=== PATIENT | male | born 1935 | race Caucasian/White ===

== ENCOUNTER 2019-08-24 07:00 | Outpatient (CLI) | payer MEDICARE, SELFPAY ==
[2019-08-24 09:37] LABS: Basophils # 0.1 10^3/uL (0.0-0.1); Basophils % 1.1 %; Eosinophils # 0.1 10^3/uL (0.0-0.8); Eosinophils % 2.9 %; Hematocrit 45.8 % (42.0-52.0); Hemoglobin 15.2 g/dL (11.7-16.6); Lymphocytes # 1.8 10^3/uL (0.8-4.8); Lymphocytes % 39.2 %; Mean Corpuscular HGB Conc 33.2 g/dL (30.0-36.0); Mean Corpuscular Hemoglobin 34.2 pg (28.0-34.0); Mean Corpuscular Volume 103.2 fL (80-94); Mean Platelet Volume 9.7 fL (7.4-10.4); Monocytes # 0.8 10^3/uL (0.2-0.9); Monocytes % 16.5 %; Neutrophils # 1.8 10^3/uL (1.8-7.7); Neutrophils % 40.1 %; Nucleated Red Blood Cells % 0 %; Platelet Count 223 10^3/cmm (130-400); Red Blood Count 4.44 10^6/uL (4.1-5.3); Red Cell Distribution Width 12.9 % (12.1-15.1); White Blood Count 4.5 10^3/uL (4.0-10.0)
[2019-08-24 09:56] LABS: Alanine Aminotransferase 31 U/L (0-41); Albumin Level 4.3 g/dL (3.5-5.2); Alkaline Phosphatase 79 IU/L (40-130); Anion Gap 15.3 (5-19); Aspartate Amino Transferase 40 U/L (0-40); Blood Urea Nitrogen 11 mg/dL (8-23); Carbon Dioxide 29 mmol/L (22-29); Chloride 101 mmol/L (98-107); Globulin 2.4 g/dL (1.3-4.6); Glucose 98 mg/dL (65-115); Lactate Dehydrogenase 231 U/L (135-225); Osmolality Calculated 288 mOsm/kg (285-295); Potassium 4.3 mmol/L (3.5-5.1); Sodium 141 mmol/L (136-145); Total Bilirubin 0.5 mg/dL (0.15-1.2); Total Protein 6.7 g/dL (6.6-8.7)
== END 2019-08-24 07:01 | disposition home or self-care (01) ==
LOC: ONCMED 08-25 15:34
PROVIDERS: Family Provider Internal Medicine; PCP Internal Medicine; Visit Provider Internal Medicine Medical Oncology
DX: C82.35 Follicular lymphoma grade IIIa, lymph nodes of inguinal region and lower limb (principal)
CPT/HCPCS: 80053; 83615; 85025

== ENCOUNTER 2019-12-20 14:44 | Outpatient (CLI) | payer MEDICARE, SELFPAY ==
--- NOTE | 2019-12-24 16:33 | ONC FU_ITS ---
Dr. Sifuentes Patient Follow-Up Note Patient: Howie Hoffman Unit #: [id number]: [id number] Dicatated By: Bert Sifuentes M.D.Date of Visit:Dec 20, 2019 Onc Med Follow-up/Prog Note Chief Complaint: Lymphoma. History of Present Illness: This is an 84 year-old man with grade 3 follicular lymphoma, stage IIIB, high FLIPI score. 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 He developed an intermittent adenopathy, but initial attempted biopsies were nondiagnostic. In October of 2012 he developed occasional swelling of the right leg. An ultrasound of the leg showed no evidence of DVT, but he was noted to have large inguinal adenopathy measuring up to 3.5 cm. On 12/24/2012 excisional right inguinal lymph node biopsy showed grade 3 follicular lymphoma with immunohistochemistry positive for CD20, BCL-2, BCL-6, CD10 and negative for CD23 and ALK. Flow cytometry was negative for CD5. His Ki-67 was 30-50%. Postoperatively he had a complications with healing, requiring further surgical debridement on 01/21/2013. He had a high FLIPI score given his age, stage, and more than 4 station involvement. He was first seen by Dr. Lin on 01/21/2013. Bone marrow biopsy on 01/27/13 showed no involvement with lymphoma. Staging PET/CT on 01/29/13 showed diffuse adenopathy up to 2.5 cm with a maximum SUV of 9.2 involving bilateral axilla, mediastinum, abdomen, and inguinal stations. He had significant retroperitoneal adenopathy raising the aorta anteriorly. Hepatitis B serology was negative. MUGA scan on 01/28/2013 showed EF 62%. Pre-treatment LDH was 204 U/L. Definitive chemotherapy with 6 cycles of R- CHOP regimen was given 02/02/13- 05/18/13. His treatment was complicated with grade 4 neutropenia without fevers. He had a poor wound healing with the right groin cellulitis. CT of the chest, abdomen, and pelvis after 3 cycles of R-CHOP showed positive response to therapy with decrease in adenopathy in all stations. He had unchanged right lower lobe small subpleural nodule. His restaging PET/CT on 06/04/2013 after 6 cycles showed a complete response. Maintenance rituximab as per PRIMA study began on 07/15/13. CT chest, abdomen, and pelvis on 06/30/2014 was without significant adenopathy. He received cycle 12 of rituximab therapy on 03/28/2015, completing 2 years of maintenance treatment. He was then followed on observation/expectant management. His medical history, in addition to lymphoma, includes treatment for bladder cancer in 2012 and tubular adenoma of the colon removed endoscopically in 2005. His only other medical illness is GERD. He has a history of smoking one half pack of cigarettes daily. He quit smoking in 2002. He had a Pneumovax in 2013 and Prevnar in 2014. INTERIM HISTORY: I had seen him for a scheduled visit on 07/09/2018. He had recently undergone dental surgery, and he appeared to have palpable digastric lymph nodes bilaterally. He had further evaluation with PET/CT on 07/18/2018. It showed a minimally hypermetabolic soft tissue lesion in the superficial right parotid gland measuring 2.5 x 1.3 cm, SUV 2.4. 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 There were no other areas of abnormal uptake. He continued on observation/expectant management for the lymphoma. He is seen for a follow-up visit. He has been feeling pretty good generally, though he says his energy is not what it used to be. He is still doing normal activity. ECOG score is 0. He has good appetite. He has not had fever. He occasionally has sweating at night. He does not complain of shortness of breath, cough, or chest pain. He currently has no GI or complaints. He has had recurrence of carpal tunnel symptoms on the right with some associated pain and with numbness in his right hand. He has no other joint or bone pain and no other focal neurologic symptoms. Medications: [facility] Fish Oil 2 (1000 mg) Capsule Oral daily, Glucosamine 2 (500 mg) Tablet Oral daily, Multivitamins 1 Capsule Oral daily, Omeprazole 1 (20 mg) Capsule Delayed Release Oral daily Allergies: PCN Review of Systems: Constitutional - His energy is not what it used to be, but he still has normal activity. Appetite is good and weight is stable. No fever. He occasionally has sweating at night. ECOG score is 0, ENMT - No sinus congestion/drainage. His mouth has been sore from recent dental work. No sore throat or difficulty swallowing, Hematologic/Lymphatic - No abnormal bruising or bleeding, Respiratory - No shortness of breath. No cough. No pleuritic pain or hemoptysis, Cardiovascular - No angina pain. No palpitations, Gastrointestinal - No nausea or vomiting. His acid reflux is adequately managed with omeprazole. No diarrhea or constipation. No blood in the stool or black stools, Genitourinary (M) - No dysuria or hematuria. No urinary frequency. No urgency or incontinence, Musculoskeletal - He has pain associated with recurrence of carpal tunnel symptoms on the right. He has no other joint or bone pain, Integumentary - No skin rash, Neurologic - No headache or dizziness. He has numbness in his right hand. No other focal neurologic symptoms, Psychiatric - No anxiety or depression. No insomnia. Vital Signs: Performed on Dec 20, 2019 14:59 Height - 70.00 in Weight - 168.0 lbs (LOW) BSA - 1.94 sq.m BMI - 24.11 Temperature - 98.0 F (LOW) Pulse - 74 /min Respiration - 18 /min BP - 139/72 mm(hg) O2 Sat - 95 % (LOW) Pain - 0 Physical Examination: Constitutional - He looks good generally, Eyes - Sclerae nonicteric. Conjunctivae clear, ENMT - There are no lesions noted in the oral cavity, Hematologic/Lymphatic - There mass in the area of the angle of the jaw on the right side appears stable, measuring 2-3 cm. There is no other cervical, clavicular, or axillary adenopathy noted, Respiratory - Lungs are clear with good air movement bilaterally, Cardiovascular - Heart rhythm is regular. There is no murmur, gallop, or rub noted, Abdomen - Soft. Liver and spleen are not enlarged. There is no abdominal mass or ascites noted. There is no inguinal adenopathy, Extremities - No edema. Pedal pulses are palpable bilaterally, Neurologic - No focal neurologic deficits noted. Lab/Imaging: Test performed on Aug 24, 2019 07:00 LDH (Total) 231 U/L Sodium 141 mmol/L Potassium 4.3 mmol/L Chloride 101 mmol/L CO2 29 mmol/L Anion Gap 15.3 BUN 11 mg/dL Creatinine 0.8 mg/dL Cr Clearance (Est) 79.9000 mL/min Glucose 98 mg/dL Calcium 10.0 mg/dL Protein, Total 6.7 g/dL Albumin 4.3 g/dL Globulin 2.4 g/dL Bilirubin, Total 0.5 mg/dL ALT (SGPT) 31 U/L AST (SGOT) 40 U/L Alkaline Phosphatase 79 IU/L WBC 4.5 10 3/uL RBC 4.44 10 6/uL HGB 15.2 g/dL HCT 45.8 % MCV 103.2 fL MCH 34.2 pg MCHC 33.2 g/dL RDW 12.9 % Platelet Count 223 10 3/cmm MPV 9.7 fL Neutrophils 1.8 10 3/uL Lymphocytes 1.8 10 3/uL Monocytes 0.8 10 3/uL Eosinophils 0.1 10 3/uL Basophils 0.1 10 3/uL Neutrophil % 40.1 % Lymphocyte % 39.2 % Monocyte % 16.5 % Eosinophil % 2.9 % Basophils % 1.1 % Impression: 1. Patient with grade 3 follicular lymphoma, stage IIIB. He had high FLIPI score at initial diagnosis in December 2012. 2. He had complete response to treatment with 6 cycles of R-CHOP chemotherapy, delivered from 01/11/2013 - 05/18/2013. 3. He was then given maintenance rituximab for 2 years, completed on 03/28/2015. He has been followed on observation/expectant management following completion of maintenance rituximab in March 2015. During followup he had developed nodule at the angle of the jaw on the right side. He had previously been evaluated by Dr. Brenner, and it appeared to most likely represent a benign salivary gland tumor. Restaging PET/CT on 07/28/2018 showed a minimally hypermetabolic soft tissue lesion in the superficial right parotid gland measuring 2.5 x 1.3 cm, SUV eight 2.4. This was felt to be consistent with benign salivary gland tumor, but a solitary nidus of lymphoma was not excluded. Given those findings, observation/expectant management was recommended. Since then there has been some minor decline in his energy/activity tolerance. He has persistent mass in the area of the angle of the jaw on the right side. He also has slightly elevated liver enzymes. Plan: He remains on observation/expectant management. As he has persistent mass in the area of the angle of the jaw on the right side and his previous PET/CT could not exclude lymphoma as a possible cause, I am going to schedule a restaging PET/CT. He will have further evaluation as indicated. In the absence of any evidence of disease recurrence/progression, I will just plan to see him again in 1 year. Signed By: Bert Sifuentes M.D. <<Signature on File>>
== END 2019-12-20 14:45 | disposition home or self-care (01) ==
LOC: ONCMED 14:50
PROVIDERS: PCP Internal Medicine; Visit Provider Internal Medicine Medical Oncology
DX: C82.35 Follicular lymphoma grade IIIa, lymph nodes of inguinal region and lower limb (principal); Z92.22 Personal history of monoclonal drug therapy
CPT/HCPCS: G0463

== ENCOUNTER → 2020-01-12 15:24 | Outpatient (BNVA) | payer MEDICARE, SELFPAY | PROVIDERS: PCP Internal Medicine; Referring Provider Dermatology; Visit Provider Dermatology | DX: D48.9 Neoplasm of uncertain behavior, unspecified (principal); L57.0 Actinic keratosis; Z85.828 Personal history of other malignant neoplasm of skin; L82.1 Other seborrheic keratosis | CPT/HCPCS: 11102; 17000; 17003; 88304; 88305; 99203; 99204 ==

== ENCOUNTER → 2020-02-23 12:29 | Outpatient (BNVA) | payer MEDICARE, SELFPAY | PROVIDERS: PCP Internal Medicine; Visit Provider Dermatology | DX: D48.9 Neoplasm of uncertain behavior, unspecified (principal) | CPT/HCPCS: 88304 ==

== ENCOUNTER → 2020-03-15 08:13 | Outpatient (BNVA) | payer MEDICARE, SELFPAY | PROVIDERS: PCP Internal Medicine; Visit Provider Urology | DX: C67.9 Malignant neoplasm of bladder, unspecified (principal) | CPT/HCPCS: 81003 ==

== ENCOUNTER → 2020-03-17 11:42 | Outpatient (BNVA) | payer MEDICARE, SELFPAY | PROVIDERS: PCP Internal Medicine; Visit Provider Urology | DX: Z11.59 Encounter for screening for other viral diseases (principal); C67.9 Malignant neoplasm of bladder, unspecified | CPT/HCPCS: 87635 ==

== ENCOUNTER → 2020-03-23 11:11 | Outpatient (BNVA) | payer MEDICARE, SELFPAY | PROVIDERS: PCP Internal Medicine; Visit Provider Urology | DX: C67.9 Malignant neoplasm of bladder, unspecified (principal) | CPT/HCPCS: 80053; 81003 ==

== ENCOUNTER → 2020-03-24 14:17 | Outpatient (BNVA) | payer MEDICARE, SELFPAY | PROVIDERS: PCP Internal Medicine; Visit Provider Urology | DX: Z20.828 Contact with and (suspected) exposure to other viral communicable diseases (principal); Z01.812 Encounter for preprocedural laboratory examination | CPT/HCPCS: 87635 ==

== ENCOUNTER 2020-03-27 14:54 | Observation (INO) | payer MEDICARE, SELFPAY ==
[2020-03-24 13:07] VITALS: BMI 24.3
[2020-03-27] VITALS (10 sets, daily range): BP systolic 121–177; BP diastolic 70–82; PULSE 53–113; RESP 16–18; TEMP 36.1–36.9; O2SAT 93–98
[2020-03-27] MEDS: sodium chloride 0.9% 1,000 ML 30 ML IV (11:01)
--- NOTE | 2020-03-27 11:12 | ANES.PREANE2 ---
Pre-Anesthetic Assessment Pre-Anesthetic Assessment: Height/Weight: Height 1.78 m Weight 77.111 kg Temp Pulse Resp BP Pulse Ox 97.4 F L 56 L 18 177/78 96 03/27/20 10:50 03/27/20 10:50 03/27/20 10:50 03/27/20 10:50 03/27/20 10:50 Preop Diagnosis: Recurrent bladder cancer Proposed Procedure: Operation Date: 03/27/20 12:00 Proposed Procedures p Transurethral Resection Bladder Tumor 67826 C67.9(Not Applicable) - Hasmukh Johnson MD s Cystoscopy(Not Applicable) - Hasmukh Johnson MD Familial anesthetic complications: none Was Beta Drew taken within 24 hours: N/A Last intake: Intake Last Liquid Date 03/26/20 Last Liquid Time 18:00 Last Solid Date 03/26/20 Last Solid Time 18:00 Social: Social History: No alcohol and No tobacco Exam: Pre-Anes Outpt Exam: alert, oriented x 3, clear to auscultation bilaterally and regular rate & rhythm Airway: Cervical ROM: WNL MP: 2 Dentition: False GI: GI: GERD Anesthetic Plan: ASA status: 2 Anesthesia: General Risk of > 500 ml blood loss (7ml/kg in children): No Meds/Allergies Current Medications: Current Medications Generic Name Dose Route Start Last Admin Trade Name Freq PRN Reason Stop Dose Admin Sodium Chloride 1,000 mls @ 30 ml s/hr 03/27/20 10:45 03/27/20 11:01 Sodium Chloride 0.9% IV 03/28/20 10:44 30 mls/hr .Q24H YOEL Administration PFSH Anesthesia PFSH: Medical History (Updated 03/15/20 @ 08:45 by Hasmukh Johnson MD) Bladder cancer Carpal tunnel syndrome on right History of nonmelanoma skin cancer NHL (non-Hodgkin's lymphoma) Other male erectile dysfunction Recurrent malignant neoplasm of bladder Surgical History S/P colonoscopy 02/01/2019 Family History Father , age 53 Cancer lung cancer Mother Diabetes Heart disease Social History Smoking and tobacco status: former smoker Alcohol intake: current Alcohol intake frequency: few times a month Household members: spouse Housing: House Marital status: Current occupational status: retired History of recent travel: No Data Anesthesia Cardiac Studies: No Data to Display
[2020-03-27] MEDS: levofloxacin-dextrose 5 % 500 MG/100 ML PREMIX 100 MG IV (12:23)
--- NOTE | 2020-03-27 12:30 | W.PM.OPSUD ---
Surgery/Procedure H&P Update DATE OF PROCEDURE: March 27, 2020 DATE H&P PERFORMED: 03/15/20 H&P UPDATE INFORMATION: I have reviewed H&P completed within last 30 days, I have examined patient prior to procedure, No changes to prior documentation and H&P is in [facility] EMR on date indicated PREOP DIAGNOSIS: Recurrent bladder cancer PLANNED PROCEDURE: Operation Date: 03/27/20 12:00 Proposed Procedures p Transurethral Resection Bladder Tumor 09316 C67.9(Not Applicable) - Hasmukh Johnson MD s Cystoscopy(Not Applicable) - Hasmukh Johnson MD
[2020-03-27] MEDS: lidocaine 2% Urojet 20 mL TOPICAL (12:45)
--- NOTE | 2020-03-27 13:08 | PM.OP ---
Operative Report Date of procedure: March 27, 2020 Pre-op Diagnosis: Recurrent bladder cancer Post-op diagnosis: same Procedure Done: Cystoscopy, transurethral section of bladder tumor medium Pathology: Bladder tumor chips Surgeon: Alex Anesthesia: General Estimated blood loss: Minimal Urine output: Not measured Complications: None Findings: 1. Wide base sessile tumor consistent with high-grade probably invasive TCCA on the left lateral wall. All tumor visualized was resected. Muscle sampling confirmed cystoscopically. Condition: stable Disposition: PACU Brief History: Mr. Hoffman is a very pleasant 85-year-old white male with a history of TCC of the bladder with a remote recurrence about 9 years ago and on routine surveillance cystoscopy with no evidence of recurrence since. He was seen about a week ago for routine annual surveillance cystoscopy and was found to have an area consistent with a high-grade likely invasive tumor on the right lateral wall. No other lesions were identified. Was scheduled for TURBT a week ago but developed a urinary tract infection that was treated but he is recovered well from that now and is back for TURBT today. Procedure: After routine preoperative evaluation examination and obtaining of informed consent he was taken to the operating suite on 03/27/2020 where general anesthesia was administered without difficulty after appropriate timeout was performed, SCDs confirmed to be functioning, preoperative antibiotics administered, beta-barbara protocol confirmed. Prepped and draped in the usual sterile fashion in dorsolithotomy position paying careful attention to avoiding pressure points. 21 Moroccan cystoscope with 30 degree lens was introduced into urethral meatus and advanced into the bladder under videoscopy. The bladder was systematically examined with 30 and 70 degree lenses. The only lesion identified was on the right lateral wall which was 1 identified in clinic. It was suspicious for high-grade invasion based on its wide based nodular sessile appearance. No papillary component was easily identified. There urethra is in calibrated with Carlos sounds and easily accommodated 30 Moroccan. 2% lidocaine jelly was instilled into the urethra and a 25 Moroccan continuous flow resectoscope sheath with visual obturator in place was advanced into the bladder without difficulty. The gyrus bipolar system was utilized with the super loop for resection initially. The bladder tumor was resected down deep into the base with muscle fibers exposed. It had a somewhat fixed appearance initially. Clinically it suspicious for having muscle invasion. After all visible tumor was resected the button probe was utilized to obtain meticulous hemostasis. All the chips were evacuated from the bladder via an Ellik evacuator and sent for pathologic evaluation. The bladder was drained with a 20 Moroccan three-way Gould catheter with 10 cc in the balloon. Continuous bladder irrigation with normal saline was set up at a low rate in the urine remained clear. Tolerated the procedure well without complications and was awakened in the operating room and returned to the recovery in stable condition. PLANS: 1. Mitomycin instillation postop 2. Based on the depth of resection I will probably discharge him home tomorrow with a catheter in place for further healing prior to voiding trial.
--- NOTE | 2020-03-27 13:50 | ANE.PACU2 ---
Inpatient post-anesthesia follow up: Airway intact: Yes Vital signs: Temperature 98.4 F Pulse Rate 86 Respiratory Rate 18 Blood Pressure 117/68 Pulse Oximetry 94 Oxygen Delivery Me thod Room Air Oxygen Flow Rate 3 Fraction of Inspir ed Oxygen Hydration adequate: Yes Nausea and vomiting: No Pain level: 2 Mental status: Baseline
--- NOTE | 2020-03-27 14:22 | SUR.OPER ---
1350 RAMIREZ BAG DRAINED, CLEAR FLUID NOTED DRAINING IN TUBE.
--- NOTE | 2020-03-27 16:50 | PM.MISC ---
Miscellaneous Note Purpose of Documentation: Intravesical chemotherapy documentation Note: Patient is postop TURBT medium. MITOMYCIN 40 mg in 40 cc normal saline instilled into the bladder after discontinuing CBI and shutting off his IV. Atraumatically performed and tolerated well. The medication will be drained at no later than 1 hour but certainly can be drained sooner if he is having a lot of discomfort. Questions answered. Patient did well nursing staff educated regarding expectations for drainage of the medication, how to do it, disposal appropriately etc.
[2020-03-27] MEDS: dextrose 5%-ns + KCl 20 20 MEQ/1,000 ML BAG 50 MEQ IV (20:53)
[2020-03-28 05:14] VITALS: BP 117/68; PULSE 86; RESP 18; TEMP 36.9; O2SAT 94
--- NOTE | 2020-03-28 06:56 | PM.DCS ---
Discharge Providers Date of Admission: 03/27/20 14:54 Date of Discharge: March 28, 2020 Attending Provider at Admission: Hasmukh Johnson MD Attending Provider at Discharge: Hasmukh Johnson MD Primary Care Provider: Jimbo Kinsey MD Diagnoses at Discharge Discharge Diagnosis (1) Recurrent malignant neoplasm of bladder: Status: Acute Reason for Visit Reason for Visit: Recurrent TCC of the bladder Hospital Course Hospital Course Admitted on the day of the procedure which went well. Intraoperative findings included a nodular sessile wide-based tumor suspicious for invasion. Postoperatively he did well. Received mitomycin 40 mg intravesical chemotherapy on the afternoon of surgery without difficulty. By postoperative day #1 morning he was deemed to be a good candidate for further convalescence at home. Because of the depth of resection I recommended leaving the Gould catheter in until follow-up in the clinic on 03/30/2020. Discharged in stable condition to his home in the care of his family. Physical Exam Const: COMMON NORMALS: no acute distress, alert and well nourished GENERAL APPEARANCE: well kempt and well developed ORIENTATION/CONSCIOUSNESS: not confused Resp: COMMON NORMALS: normal respiratory effort EFFORT & INSPECTION: No labored and No Actively coughing Neuro: COMMON NORMALS: no focal motor deficits SENSORIUM/ORIENTATION: Yes alert Psych: COMMON NORMALS: mental status grossly normal APPEARANCE: Yes grossly normal and Yes well kempt ATTITUDE: Yes calm and Yes engaged Skin: COMMON NORMALS: no rashes or lesions noted and no jaundice GENERAL SKIN EXAM: no rashes or lesions noted Urinary Catheter Management^: 3-way Urethral CBI: Cath Placed During This Visit: yes Reason for Continuing Indwelling Catheter: Perioperative Use in Selected Surgeries Urinary Catheter Date of Insertion: 03/27/20 Urinary Catheter Time of Insertion: 12:55 Discharge Data Data Completed and Pending: Pending at discharge Category Date Time Status Pathology: Surgic al [PTH] Routine Pth 03/27/20 13:37 Ordered Vitals: Last Vital Signs Temp 98.4 F 03/28/20 05:14 Pulse 86 03/28/20 05:14 Resp 18 03/28/20 05:14 BP 117/68 03/28/20 05:14 Pulse Ox 94 03/28/20 05:14 Discharge Plan Discharge Condition: Stable Prescriptions: No Action glucosamine sulfate 1,000 mg capsule 1,000 mg PO DAILY RF: 0 omega 7-[id number]-tcw-fish oil [Fish Oil] 1,000 mg (120 mg-180 mg) capsule 1 cap PO QDAY RF: 0 multivitamin Capsule 1 cap PO QAM RF: 0 omeprazole 40 mg capsule,delayed release(DR/EC) 40 mg PO QDAY Qty: 90 RF: 3 levofloxacin 500 mg tablet 500 mg PO DAILY Qty: 10 RF: 1 Discharge Diet: Usual diet Discharge Activity: Increase activity as tolerated Discharge Attestations Time Spent in Discharge Care*: less than 30 min Quality Metrics Clinical Quality Measures During this hospital stay, did patient experience: None Coding Level of Care Code Acute Care Transition Coordinator for Baileeg Fwd Diagnoses Recurrent malignant neoplasm of bladder C67.9
[2020-03-28 07:37] VITALS: BP 129/83; PULSE 109; RESP 17; TEMP 36.8; O2SAT 95
--- NOTE | 2020-03-28 08:55 | PC.NURSE ---
Patient given leg bag for discharge and education for catheter care. Patient states he will call Dr. Johnson's office to set up appt time on 03/30 like instructed to do so in discharge instructions.
[2020-03-28 09:03] VITALS: BP 129/83; PULSE 109; RESP 17; TEMP 36.8; O2SAT 95
== END 2020-03-28 09:03 | disposition home or self-care (01) ==
LOC: MEDSURG 14:55
PROVIDERS: Admitting Provider Urology; PCP Internal Medicine; Visit Provider Urology
PROC: 0TBB8ZZ Excision of Bladder, Via Natural or Artificial Opening Endoscopic (ICD-10-PCS; CPT 52235; principal; 2020-03-27 12:00)
PROC: 0TJB8ZZ Inspection of Bladder, Via Natural or Artificial Opening Endoscopic (ICD-10-PCS; CPT 52000; 2020-03-27 12:00)
DX: C67.9 Malignant neoplasm of bladder, unspecified (principal); Z87.891 Personal history of nicotine dependence
CPT/HCPCS: 52235; 12345; 88305; G0378; J1100; J1956; J2405; J2704; J2710; J3010; J3490; J7030; J9280

== ENCOUNTER → 2020-05-18 14:56 | Outpatient (BNVA) | payer MEDICARE, SELFPAY | PROVIDERS: PCP Internal Medicine; Visit Provider Urology | DX: Z20.828 Contact with and (suspected) exposure to other viral communicable diseases (principal); C67.9 Malignant neoplasm of bladder, unspecified | CPT/HCPCS: 87635 ==

== ENCOUNTER 2020-05-22 17:01 | Observation (INO) | payer MEDICARE, SELFPAY ==
[2020-05-18 10:32] VITALS: BMI 24.3
--- NOTE | 2020-05-18 10:45 | ANES.PREANE2 ---
Pre-Anesthetic Assessment Pre-Anesthetic Assessment: Height/Weight: Height 1.78 m Weight 77.111 kg Preop Diagnosis: Recurrent bladder cancer Proposed Procedure: Operation Date: 05/22/20 12:00 Proposed Procedures p Transurethral Resection Bladder Tumor 23149 c67.9(Not Applicable) - Hasmukh Johnson MD s Cystoscopy(Not Applicable) - Hasmukh Johnson MD Familial anesthetic complications: None Social: Social History: No alcohol and No tobacco Comment: former smoker Exam: Pre-Anes Outpt Exam: alert, oriented x 3, clear to auscultation bilaterally and regular rate & rhythm Airway: Cervical ROM: WNL MP: 3 Dentition: False (lower) GI: GI: GERD Anesthetic Plan: ASA status: 2 Anesthesia: General Risk of > 500 ml blood loss (7ml/kg in children): No PFSH Anesthesia PFSH: Medical History Bladder cancer Carpal tunnel syndrome on right History of nonmelanoma skin cancer NHL (non-Hodgkin's lymphoma) Other male erectile dysfunction Recurrent malignant neoplasm of bladder Surgical History S/P colonoscopy 02/01/2019 Family History Father , age 53 Cancer lung cancer Mother Diabetes Heart disease Social History Smoking and tobacco status: former smoker Alcohol intake: current Alcohol intake frequency: few times a month Household members: spouse Housing: House Marital status: Current occupational status: retired History of recent travel: No Data Anesthesia Cardiac Studies: No Data to Display
[2020-05-22] VITALS (16 sets, daily range): BP systolic 120–167; BP diastolic 69–93; PULSE 56–80; RESP 12–22; TEMP 36.2–36.8; O2SAT 94–97
[2020-05-22] MEDS: sodium chloride 0.9% 1,000 ML 30 ML IV (14:14)
--- NOTE | 2020-05-22 15:05 | P.HPUD_ITS ---
Surgery/Procedure H&P Update DATE OF PROCEDURE: May 22, 2020 DATE H&P PERFORMED: 05/11/20 H&P UPDATE INFORMATION: I have reviewed H&P completed within last 30 days, I have examined patient prior to procedure, No changes to prior documentation and H&P is in [facility] EMR on date indicated PREOP DIAGNOSIS: TCCa of bladder high grade PLANNED PROCEDURE: Operation Date: 05/22/20 15:40 Proposed Procedures p Transurethral Resection Bladder Tumor 51603 c67.9(Not Applicable) - Hasmukh Johnson MD s Cystoscopy(Not Applicable) - Hasmukh Johnson MD
--- NOTE | 2020-05-22 15:26 | P.ANESUD_ITS ---
Pre-Anesthetic Update Pre-Anesthetic Assessment: Date of Surgery/Procedure: 05/22/20 Preop Silvia gnosis: TCCa of bladder high grade Proposed Procedure: Operation Date: 05/22/20 15:40 Proposed Procedures p Transurethral Resection Bladder Tumor 92836 c67.9(Not Applicable) - Hasmukh Johnson MD s Cystoscopy(Not Applicable) - Hasmukh Johnson MD Any changes to Pre-Anesthetic Assessment?: No Last Intake: Intake Last Liquid Date 05/22/20 Last Liquid Time 10:30 Last Solid Date 05/21/20 Last Solid Time 18:45 Vitals: Temperature 97.1 F L 05/22/20 14:00 Temperature Source Temporal Artery S can 05/22/20 14:00 Pulse Rate 63 05/22/20 14:00 Respiratory Rate 16 05/22/20 14:00 Blood Pressure 132/91 05/22/20 14:00 Blood Pressure Viki n 104 05/22/20 14:00 Pulse Oximetry 96 05/22/20 14:00 Oxygen Delivery Me thod 05/22/20 14:00 Exam: Pre-Anes Outpt Exam: alert, oriented x 3, clear to auscultation bilaterally and regular rate & rhythm Cardiac Studies: No Data to Display
--- NOTE | 2020-05-22 16:12 | P.OP_ITS ---
Operative Report Date of procedure: May 22, 2020 Pre-op Diagnosis: TCCa of bladder high grade Post-op diagnosis: same Procedure Done: Cystoscopy, transurethral resection of bladder tumor base Pathology: Bladder tumor base resection Surgeon: Alex Anesthesia: General Estimated blood loss: Minimal Urine output: Not measured Complications: None Findings: No gross residual tumor identified. Deeper sections taken at the base of the tumor for muscle sampling. Muscle was visible at the base of the resection area. Condition: stable Disposition: PACU Brief History: Mr. 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 Admitted back for repeat deep resection due to high-grade and lamina propria invasion status of the initial pathology.. Procedure: After routine preoperative evaluation examination and obtaining of informed consent he was taken to the operating suite on 05/22/2020 where general anesthesia was administered without difficulty after appropriate timeout was performed, SCDs confirmed to be functioning, preoperative antibiotics administered, per protocol confirmed. Prepped and draped in usual sterile fashion in dorsolithotomy position paying careful attention to avoiding pressure points. 21 [place] cystoscope with 30 degree lens was introduced into the urethra meatus and advanced into the bladder under videoscopy. Bladder was systematically examined. No residual tumor was identified. The previous resection site was easily identified. Well-lubricated urethra was calibrated with Gove sounds and easily accommodated 30 South African. 2% lidocaine jelly was instilled into the urethra and a 25 [place] continuous- flow resectoscope sheath with visual obturator was advanced into the bladder without difficulty. The gyrus bipolar system with super loop was utilized for resection of the base of the previously resected site. No residual tumor was identified. Muscle was seen at the base of the resection in multiple areas. Total area of resection encompassed about 3 cm in diameter. The button probe was then utilized to obtain meticulous hemostasis of the area. All chips were evacuated from the bladder with an Swype evacuator and the procedure was completed. Bladder was drained with a 20 [place] three-way Gould catheter with light CBI running and efflux clear. 10 cc placed in the balloon. Tolerated the procedure well without complications and was awakened in the operating room and returned to the recovery in stable condition. PLANS: 1. Admit to observation status 2. Anticipate discharge early tomorrow with or without catheter.
[2020-05-22] MEDS: levofloxacin-dextrose 5 % 500 MG/100 ML PREMIX 100 MG IV (16:19)
[2020-05-22] MEDS: lidocaine 2% Urojet 20 mL TOPICAL (16:53)
--- NOTE | 2020-05-22 17:29 | ANE.PACU2 ---
Inpatient post-anesthesia follow up: Airway intact: Yes Vital signs: Temperature 97.4 F Pulse Rate 68 Respiratory Rate 22 Blood Pressure 136/79 Pulse Oximetry 95 Oxygen Delivery Me thod Room Air Oxygen Flow Rate 8 Fraction of Inspir ed Oxygen Hydration adequate: Yes Nausea and vomiting: No Pain level: 2 Mental status: Baseline
[2020-05-22] MEDS: docusate sodium 100 mg Capsule PO (18:28)
[2020-05-22] MEDS: D5-NS 0.45% + KCL 20 mEq 20 MEQ/1,000 ML BAG 50 MEQ IV (18:28)
--- NOTE | 2020-05-22 18:55 | PC.NURSE ---
patient received from surgery with two bags of sterile saline infusing for CBI, 1200 remained in one bag and 1800 remained in the other, upon arrival urine output was at 700mL, light pink in color with no clots observed. Patient resting in bed at this time, CBI dripping slowly.
[2020-05-23 01:20] VITALS: BP 118/69; PULSE 57; RESP 16; TEMP 36.6; O2SAT 92
[2020-05-23 05:15] VITALS: BP 119/69; PULSE 61; RESP 17; TEMP 36.9; O2SAT 96
--- NOTE | 2020-05-23 06:06 | PC.NURSE ---
SHIFT SUMMARY Has had no c/o this shift. CBI has been at a slow drip all shift. Urine started at a light pink and has progressed to clear straw colored this am. Has had no clots or required any manual irrigation. Gould emptied about [id number] and has had 3400ml output since arrival from OR. 2000ml irrigation fluid infused with actual urine of 1400ml IV infusing at 50ml/hr.
[2020-05-23 06:26] LABS: Glucose Point of Care 88 mg/dL (70-110)
[2020-05-23 07:47] VITALS: BP 133/72; PULSE 56; RESP 16; TEMP 36.7; O2SAT 94
[2020-05-23] MEDS: docusate sodium 100 mg Capsule PO (08:23)
[2020-05-23] MEDS: pantoprazole DR 40 mg Tablet PO (08:23)
[2020-05-23 11:35] VITALS: BP 133/72; PULSE 56; RESP 16; TEMP 36.7; O2SAT 94
--- NOTE | 2020-05-27 11:04 | P.DS_ITS ---
Discharge Providers Date of Admission: 05/22/20 17:01 Date of Discharge: May 28, 2020 Attending Provider at Admission: Hasmukh Johnson MD Attending Provider at Discharge: Hasmukh Johnson MD Primary Care Provider: Jimbo Kinsey MD Diagnoses at Discharge Discharge Diagnosis (1) Recurrent malignant neoplasm of bladder: Status: Acute (2) Postoperative urinary retention: Status: Acute Reason for Visit Reason for Visit: cystoscopy Hospital Course Hospital Course He was admitted on 05/22/2020 for TURBT with deep resection of the prior resection site base. Procedure went well without difficulty. Because of the deep resection it was decided to leave the catheter in at discharged and he was discharged on postoperative day #1 in stable condition with Gould catheter in place, leg and night bag. Plans were made to follow-up later in the week for voiding trial. No complications while hospitalized. Physical Exam Const: COMMON NORMALS: no acute distress, alert and well nourished GENERAL APPEARANCE: well kempt and well developed ORIENTATION/CONSCIOUSNESS: not confused Neck/C-Spine: COMMON NORMALS: full ROM Resp: COMMON NORMALS: normal respiratory effort EFFORT & INSPECTION: No labored and No Actively coughing Neuro: COMMON NORMALS: no focal motor deficits SENSORIUM/ORIENTATION: Yes alert Psych: COMMON NORMALS: mental status grossly normal APPEARANCE: Yes grossly normal and Yes well kempt ATTITUDE: Yes calm and Yes engaged Skin: COMMON NORMALS: no rashes or lesions noted and no jaundice GENERAL SKIN EXAM: no rashes or lesions noted Urinary Catheter Management^: 3-way Urethral CBI: Cath Placed During This Visit: yes, but has since been removed by the nurse Reason for Continuing Indwelling Catheter: Decision to DC Catheter Urinary Catheter Date of Insertion: 05/23/20 Urinary Catheter Time of Insertion: 10:28 Date Urinary Catheter Removed: 05/23/20 Time Urinary Catheter Discontinued: 07:05 Discharge Data Data Completed and Pending: Pending at discharge Category Date Time Status Pathology: Surgic al [PTH] Routine Pth 05/22/20 17:14 Received Vitals: Last Vital Signs Temp 98.0 F 05/23/20 11:35 Pulse 56 L 05/23/20 11:35 Resp 16 05/23/20 11:35 BP 133/72 05/23/20 11:35 Pulse Ox 94 05/23/20 11:35 Discharge Plan Discharge Patient Disposition: Home Condition: Stable Prescriptions: Continued glucosamine sulfate 1,000 mg capsule 1,000 mg PO DAILY RF: 0 multivitamin Capsule 1 cap PO QAM RF: 0 omeprazole 40 mg capsule,delayed release(DR/EC) 40 mg PO QDAY Qty: 90 RF: 3 Held omega 9-wna-pnu-fish oil [Fish Oil] 1,000 mg (120 mg-180 mg) capsule 1 cap PO QDAY RF: 0 Hold Instructions: Resume on 05/29/20. No Action sulfamethoxazole-trimethoprim 800-160 mg tablet 1 tab PO BID Qty: 10 RF: 0 Discharge Orders: Discharge Order (Routine); Ordered 05/23/20 Ordered By: Hasmukh Johnson Referrals: Hasmukh Johnson MD [Physician] - 06/13/20 7:45 am ([facility] #1) Discharge Diet: Usual diet Discharge Activity: Limit activity as instructed Patient Instructions: Cystoscopy, Gould Catheter Care, Bladder Cancer (DC), Urinary Leg Bag (GEN) Activity Restrictions/Additional Instructions: No lifting > 10 #s for 3 weeks Call Friday for path check Discharge Attestations Time Spent in Discharge Care*: less than 30 min Quality Metrics Clinical Quality Measures During this hospital stay, did patient experience: None Coding Level of Care Code Acute [employer] Dies for Chg Fwd Exam Detailed Diagnoses Recurrent malignant neoplasm of bladder C67.9 Postoperative urinary retention N99.89; R33.8
== END 2020-05-23 11:44 | disposition home or self-care (01) ==
LOC: MEDSURG 17:01
PROVIDERS: Admitting Provider Urology; PCP Internal Medicine; Visit Provider Urology
PROC: 0TBB8ZZ Excision of Bladder, Via Natural or Artificial Opening Endoscopic (ICD-10-PCS; CPT 52235; principal; 2020-05-22 15:40)
PROC: 0TJB8ZZ Inspection of Bladder, Via Natural or Artificial Opening Endoscopic (ICD-10-PCS; CPT 52000; 2020-05-22 15:40)
DX: C67.9 Malignant neoplasm of bladder, unspecified (principal); R33.8 Other retention of urine; N99.89 Other postprocedural complications and disorders of genitourinary system; K21.9 Gastro-esophageal reflux disease without esophagitis; Z87.891 Personal history of nicotine dependence
CPT/HCPCS: 52235; 12345; 36416; 51702; 82962; 88305; 96374; G0378; J1956; J2405; J2704; J2710; J3010; J3490; J7030

== ENCOUNTER → 2020-06-16 10:58 | Outpatient (BNVA) | payer MEDICARE, SELFPAY | PROVIDERS: PCP Internal Medicine; Visit Provider Urology | DX: C67.9 Malignant neoplasm of bladder, unspecified (principal) | CPT/HCPCS: 81003 ==

== ENCOUNTER → 2020-06-23 10:42 | Outpatient (BNVA) | payer MEDICARE, SELFPAY | PROVIDERS: PCP Internal Medicine; Visit Provider Urology | DX: C67.9 Malignant neoplasm of bladder, unspecified (principal) | CPT/HCPCS: 81003 ==

== ENCOUNTER → 2020-06-30 10:09 | Outpatient (BNVA) | payer MEDICARE, SELFPAY | PROVIDERS: PCP Internal Medicine; Visit Provider Urology | DX: C67.9 Malignant neoplasm of bladder, unspecified (principal) | CPT/HCPCS: 81003 ==

== ENCOUNTER → 2020-07-07 13:41 | Outpatient (BNVA) | payer MEDICARE, SELFPAY | PROVIDERS: PCP Internal Medicine; Visit Provider Urology | DX: C67.9 Malignant neoplasm of bladder, unspecified (principal) | CPT/HCPCS: 81003 ==

== ENCOUNTER → 2020-07-14 10:49 | Outpatient (BNVA) | payer MEDICARE, SELFPAY | PROVIDERS: PCP Internal Medicine; Visit Provider Urology | DX: C67.9 Malignant neoplasm of bladder, unspecified (principal) | CPT/HCPCS: 81003 ==

== ENCOUNTER → 2020-07-21 10:43 | Outpatient (BNVA) | payer MEDICARE, SELFPAY | PROVIDERS: PCP Internal Medicine; Visit Provider Urology | DX: C67.9 Malignant neoplasm of bladder, unspecified (principal) | CPT/HCPCS: 81003 ==

== ENCOUNTER → 2020-09-01 11:52 | Outpatient (BNVA) | payer MEDICARE, SELFPAY | PROVIDERS: PCP Internal Medicine; Visit Provider Urology | DX: C67.9 Malignant neoplasm of bladder, unspecified (principal) | CPT/HCPCS: 81003; 88112 ==

== ENCOUNTER → 2020-09-22 12:00 | Outpatient (BNVA) | payer MEDICARE, SELFPAY | PROVIDERS: PCP Internal Medicine; Visit Provider Orthopaedic Surgery | DX: Z01.812 Encounter for preprocedural laboratory examination (principal); Z20.822 Contact with and (suspected) exposure to COVID-19 | CPT/HCPCS: 87635 ==

== ENCOUNTER 2020-09-28 08:58 | Day surgery (SDC) | payer MEDICARE, SELFPAY ==
[2020-09-27 13:33] VITALS: BMI 25.1
[2020-09-28 09:21] VITALS: BP 161/72; PULSE 62; RESP 18; TEMP 36.5; O2SAT 96
[2020-09-28] MEDS: sodium chloride 0.9% 1,000 ML 30 ML IV (09:41)
--- NOTE | 2020-09-28 09:43 | P.ANESASSM_ITS ---
Pre-Anesthetic Assessment Pre-Anesthetic Assessment: Height/Weight: Height 1.78 m Weight 79.379 kg Temp Pulse Resp BP Pulse Ox 97.7 F 62 18 161/72 96 09/28/20 09:21 09/28/20 09:21 09/28/20 09:21 09/28/20 09:21 09/28/20 09:21 Preop Diagnosis: Carpal tunnel syndrome right Proposed Procedure: Operation Date: 09/28/20 10:40 Proposed Procedures p right Carpal Tunnel Release 79240 g56.01(Right) - Adalberto Sutton MD Was Beta Drew taken within 24 hours: N/A Was Clonidine taken within 24 hours: N/A Last intake: Intake Last Liquid Date 09/27/20 Last Liquid Time 22:00 Last Solid Date 09/27/20 Last Solid Time 19:00 Social: Social History: No alcohol and No tobacco Exam: Pre-Anes Outpt Exam: alert, oriented x 3, clear to auscultation alice aterally and regular rate & rhythm Airway: MP: 2 Pulmonary: Pulmonary: None reported CV/HEM: CV/HEM: None reported : : None reported Hepatic: Hepatic: None reported GI: GI: GERD Metabolic: Metabolic: None reported Musc/skel: Musc/skel: None reported Neuropsych: Neuropsych: None reported Anesthetic Plan: ASA status: 2 Anesthesia: MAC Meds/Allergies Current Medications: Current Medications Generic Name Dose Route Start Last Admin Trade Name Freq PRN Reason Stop Dose Admin Sodium Chloride 1,000 mls @ 30 ml s/hr 09/28/20 09:15 09/28/20 09:41 Sodium Chloride 0.9% IV 09/29/20 09:14 30 mls/hr .Q24H YOEL Administration PFSH Anesthesia PFSH: Medical History Bladder cancer Carpal tunnel syndrome on right Chronic left hip pain H/O cancer of gall bladder History of nonmelanoma skin cancer Lumbar back pain with radiculopathy affecting lower extremity NHL (non-Hodgkin's lymphoma) Other male erectile dysfunction Recurrent malignant neoplasm of bladder Surgical History S/P colonoscopy 02/01/2019 S/P hernia repair Status post surgical removal and fulguration of bladder neoplasm Family History Father , age 53 Cancer lung cancer Mother Diabetes Heart disease Social History Smoking and tobacco status: former smoker Alcohol intake: current Alcohol intake frequency: few times a month Household members: spouse Housing: House Marital status: Current occupational status: retired History of recent travel: No Data Anesthesia Cardiac Studies: No Data to Display
--- NOTE | 2020-09-28 10:40 | W.PM.OPSUD ---
Surgery/Procedure H&P Update DATE OF PROCEDURE: September 28, 2020 DATE H&P PERFORMED: 09/20/20 PREOP DIAGNOSIS: Carpal tunnel syndrome right PLANNED PROCEDURE: Operation Date: 09/28/20 10:40 Proposed Procedures p right Carpal Tunnel Release 87505 g56.01(Right) - Adalberto Sutton MD
--- NOTE | 2020-09-28 11:21 | PM.OP ---
Operative Report Date of procedure: September 28, 2020 Pre-op Diagnosis: Carpal tunnel syndrome right Post-op diagnosis: same Post-op Findings: Same Procedure Done: Right carpal tunnel release Pathology: none sent Surgeon: Adalberto Sutton Anesthesia: Nerve Block ([place] block) Estimated blood loss (mL): 5 Tourniquet time (min): 20 Condition: stable Disposition: PACU Procedure: Patient was taken to the operating room and anesthesia provided by the anesthesia service. She was prepped and draped with the arm exposed. A timeout was performed. A 3 cm long incision was made in line with the fourth ray from the distal edge of the carpal tunnel extending proximally. The subcutaneous fat and palmar fascia was divided with a scalpel blade. Under loupe magnification the ulnar neurovascular bundle was identified distally. A hemostat could be passed under the transverse carpal ligament allowing the distal 25% to be divided. A slotted guide was then passed beneath the transverse carpal ligament and the middle 50% divided. Blunt scissors were then passed over the guide freeing the proximal ligament. The tourniquet was deflated. Hemostasis provided with electrocautery. Wound edges were infiltrated with 10 cc of a half percent Marcaine solution. Skin edges were reapproximated with 3-0 Prolene. Sterile dressings were applied. The patient was taken to the recovery room in stable condition
[2020-09-28 11:25] VITALS: BP 125/87; PULSE 60; RESP 16; TEMP 36.1; O2SAT 92
[2020-09-28 11:30] VITALS: BP 135/70; PULSE 56; RESP 17; O2SAT 93
[2020-09-28 11:35] VITALS: BP 142/67; PULSE 56; RESP 17; O2SAT 94
[2020-09-28 11:40] VITALS: BP 126/69; PULSE 62; RESP 16; TEMP 36.5; O2SAT 94
[2020-09-28 11:53] VITALS: BP 125/108; PULSE 56; RESP 16; TEMP 36.5; O2SAT 94
--- NOTE | 2020-09-28 12:31 | ANE.PACU2 ---
Inpatient post-anesthesia follow up: Airway intact: Yes Vital signs: Temperature 97.7 F Pulse Rate 56 Respiratory Rate 16 Blood Pressure 125/108 Pulse Oximetry 94 Oxygen Delivery Me thod Room Air Oxygen Flow Rate Fraction of Inspir ed Oxygen Hydration adequate: Yes Nausea and vomiting: No Pain level: 2 Mental status: Baseline
== END 2020-09-28 12:15 | disposition home or self-care (01) ==
PROVIDERS: PCP Internal Medicine; Visit Provider Orthopaedic Surgery
PROC: (CPT 64721; principal; 2020-09-28 10:30)
DX: G56.01 Carpal tunnel syndrome, right upper limb (principal); K21.9 Gastro-esophageal reflux disease without esophagitis; Z85.51 Personal history of malignant neoplasm of bladder; Z87.891 Personal history of nicotine dependence
CPT/HCPCS: 64721; J0690; J2250; J2704; J3010; J3490; J7030

== ENCOUNTER → 2020-10-13 10:35 | Outpatient (BNVA) | payer MEDICARE, SELFPAY | PROVIDERS: PCP Internal Medicine; Visit Provider Urology | DX: C67.9 Malignant neoplasm of bladder, unspecified (principal) | CPT/HCPCS: 81003 ==

== ENCOUNTER → 2020-10-20 10:41 | Outpatient (BNVA) | payer MEDICARE, SELFPAY | PROVIDERS: PCP Internal Medicine; Visit Provider Urology | DX: C67.9 Malignant neoplasm of bladder, unspecified (principal) | CPT/HCPCS: 81003 ==

== ENCOUNTER 2020-10-25 13:58 | Outpatient (CLI) | payer MEDICARE, SELFPAY ==
--- NOTE | 2020-10-25 14:15 | XR_ITS ---
WS: [id number] Exam: XR shoulder LT min 2V* [id number] Date/Time of Exam: 10/25/2020 2:20 PM Reason For Exam: M25.512 - Pain in left shoulder No acute fracture or dislocation. Degenerative change of the AC joint and glenohumeral joint. High ri ding humeral head may indicate long-standing tear of the rotator cuff. Small periarticular calcificat ion along the inferior margin of the glenoid. XR/XR shoulder LT min 2V* [id number] IMPRESSION: 1. Degenerative change of the AC joint and glenohumeral joint. No fracture note d. 2. High riding humeral head might indicate long-standing tear of the rotator cu ff.
== END 2020-10-25 13:59 | disposition home or self-care (01) ==
LOC: RAD 14:11
PROVIDERS: PCP Internal Medicine; Visit Provider Internal Medicine
DX: M25.512 Pain in left shoulder (principal)
CPT/HCPCS: 73030

== ENCOUNTER → 2020-10-27 10:51 | Outpatient (BNVA) | payer MEDICARE, SELFPAY | PROVIDERS: PCP Internal Medicine; Visit Provider Urology | DX: C67.9 Malignant neoplasm of bladder, unspecified (principal) | CPT/HCPCS: 81003 ==

== ENCOUNTER → 2020-12-08 10:42 | Outpatient (BNVA) | payer MEDICARE, SELFPAY | PROVIDERS: PCP Internal Medicine; Visit Provider Urology | DX: C67.9 Malignant neoplasm of bladder, unspecified (principal) | CPT/HCPCS: 81003 ==

== ENCOUNTER 2020-12-13 11:32 | Outpatient (CLI) | payer MEDICARE, SELFPAY ==
[2020-12-13 12:22] LABS: Basophils # 0.1 10^3/uL (0.0-0.1); Eosinophils % 0.7 %; Hematocrit 44.6 % (42.0-52.0); Hemoglobin 14.4 g/dL (11.7-16.6); Lymphocytes # 1.5 10^3/uL (0.8-4.8); Lymphocytes % 24.6 %; Mean Corpuscular HGB Conc 32.3 g/dL (30.0-36.0); Mean Corpuscular Hemoglobin 32.8 pg (28.0-34.0); Mean Corpuscular Volume 101.6 fL (80-94); Mean Platelet Volume 9.7 fL (7.4-10.4); Monocytes # 0.9 10^3/uL (0.2-0.9); Monocytes % 15.5 %; Neutrophils # 3.45 10^3/uL (1.8-7.7); Nucleated Red Blood Cells % 0 %; Platelet Count 319 10^3/cmm (130-400); Red Blood Count 4.39 10^6/uL (4.1-5.3); Red Cell Distribution Width 11.6 % (12.1-15.1); White Blood Count 5.9 10^3/uL (4.0-10.0)
[2020-12-13 12:48] LABS: Alanine Aminotransferase 15 U/L (0-41); Albumin Level 3.9 g/dL (3.5-5.2); Alkaline Phosphatase 89 IU/L (40-130); Anion Gap 14.5 (5-19); Aspartate Amino Transferase 27 U/L (0-40); Blood Urea Nitrogen 15 mg/dL (8-23); Calcium 9.1 mg/dL (8.5-10.5); Carbon Dioxide 28 mmol/L (22-29); Chloride 103 mmol/L (98-107); Globulin 3.3 g/dL (1.3-4.6); Glucose 104 mg/dL (65-115); Lactate Dehydrogenase 187 U/L (135-225); Osmolality Calculated 293 mOsm/kg (285-295); Potassium 4.5 mmol/L (3.5-5.1); Sodium 141 mmol/L (136-145); Total Bilirubin 0.4 mg/dL (0.15-1.2); Total Protein 7.2 g/dL (6.6-8.7)
--- NOTE | 2020-12-13 18:59 | ONC FU_ITS ---
Dr. Sifuentes Patient Follow-Up Note Patient: Howie Hoffman Unit #: [id number]: [id number] Dicatated By: Bert Sifuentes M.D.Date of Visit:Dec 13, 2020 Onc Med Follow-up/Prog Note Chief Complaint: Lymphoma. History of Present Illness: This is an 85 year-old man with grade 3 follicular lymphoma, stage IIIB, high FLIPI score. In October of 2012 he developed occasional swelling of the right leg. An ultrasound of the leg showed no evidence of DVT, but he was noted to have large inguinal adenopathy measuring up to 3.5 cm. On 12/24/2012 excisional right inguinal lymph node biopsy showed grade 3 follicular lymphoma with immunohistochemistry positive for CD20, BCL-2, BCL-6, CD10 and negative for CD23 and ALK. Flow cytometry was negative for CD5. His Ki-67 was 30-50%. Postoperatively he had a complications with healing, requiring further surgical debridement on 01/21/2013. He had a high FLIPI score given his age, stage, and more than 4 station involvement. He was first seen by Dr. Lin on 01/21/2013. Bone marrow biopsy on 01/27/13 showed no involvement with lymphoma. Staging PET/CT on 01/29/13 showed diffuse adenopathy up to 2.5 cm with a maximum SUV of 9.2 involving bilateral axilla, mediastinum, abdomen, and inguinal stations. He had significant retroperitoneal adenopathy raising the aorta anteriorly. Hepatitis B serology was negative. MUGA scan on 01/28/2013 showed EF 62%. Pre-treatment LDH was 204 U/L. Definitive chemotherapy with 6 cycles of R- CHOP regimen was given 02/02/13- 05/18/13. His treatment was complicated with grade 4 neutropenia without fevers. He had a poor wound healing with the right groin cellulitis. CT of the chest, abdomen, and pelvis after 3 cycles of R-CHOP showed positive response to therapy with decrease in adenopathy in all stations. He had unchanged right lower lobe small subpleural nodule. His restaging PET/CT on 06/04/2013 after 6 cycles showed a complete response. Maintenance rituximab as per PRIMA study began on 07/15/13. CT chest, abdomen, and pelvis on 06/30/2014 was without significant adenopathy. He received cycle 12 of rituximab therapy on 03/28/2015, completing 2 years of maintenance treatment. He was then followed on observation/expectant management. His medical history is also significant for tubular adenoma of the colon which was removed endoscopically in 2005. He had treatment for superficial bladder cancer in 2012. He underwent TURBT for recurrent superficial bladder cancer in March 2020. His only other medical illness is GERD. He has a history of smoking 1/2 pack of cigarettes daily. He quit smoking in 2002. He had a Pneumovax in 2013 and Prevnar in 2014. INTERIM HISTORY: I had seen him for a scheduled visit on 07/09/2018. He had recently undergone dental surgery, and he appeared to have palpable digastric lymph nodes bilaterally. He had further evaluation with PET/CT on 07/18/2018. It showed a minimally hypermetabolic soft tissue lesion in the superficial right parotid gland measuring 2.5 x 1.3 cm, SUV 2.4. 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 There were no other areas of abnormal uptake. With those findings he continued on expectant management for the lymphoma. On his surveillance cystoscopy with Dr. Johnson on 12/08/2020 the right lateral bladder wall looked abnormal. The appearance was more consistent with an intramural type of involvement. Biopsy was recommended, and he has been scheduled to have inpatient cystoscopy later this month. He is seen for a scheduled followup visit. He has not been feeling good. He has multiple complaints including left lower quadrant abdominal pain, abdominal bloating, and constipation. His appetite has been poor. His weight has dropped 8 lbs. His energy is down about 50%. His ECOG score is 1. He has not had fever or night sweats. He has been having chills in the evening. He has no shortness of breath, cough, or chest pain. He has not had nausea/vomiting. He is having nocturia up to every 2 hours. He has no significant joint or bone pain. He does not complain of headache or dizziness. He recently had a carpal tunnel release on the right. He has mild carpal tunnel symptoms on the left. Medications: [employer] Fish Oil 2 (1000 mg) Capsule Oral daily, Glucosamine 2 (500 mg) Tablet Oral daily, Linzess (72 mcg) Capsule Oral daily, Multivitamins 1 Capsule Oral daily, Omeprazole 1 (20 mg) Capsule Delayed Release Oral daily Allergies: PCN Vital Signs: Performed on Dec 13, 2020 14:00 Height - 70.00 in Weight - 167.6 lbs (LOW) BSA - 1.94 sq.m BMI - 24.05 Temperature - 97 F (LOW) Pulse - 98 /min Respiration - 18 /min BP - 155/89 mm(hg) (HIGH) O2 Sat - 99 % Pain - 4 Fatigue - 5 Physical Examination: Constitutional - He looks pretty good generally, Eyes - Sclerae nonicteric. Conjunctivae clear, ENMT - There are no lesions noted in the oral cavity, Hematologic/Lymphatic - The mass at the angle of the jaw on the right side appears stable, measuring about 2 cm. There is no other cervical, clavicular, or axillary adenopathy noted, Respiratory - Lungs are clear with good air movement bilaterally, Cardiovascular - Heart rhythm is regular. There is a II/ systolic murmur at the base. There is no gallop or rub noted, Abdomen - Mildly distended and tympanic. There is no significant abdominal tenderness. Liver and spleen are not enlarged. There is no abdominal mass or ascites noted. There is no inguinal adenopathy, Extremities - No edema, Neurologic - No focal neurologic deficits noted. Lab/Imaging: Test performed on Dec 13, 2020 11:50 LDH (Total) 187 U/L Sodium 141 mmol/L Potassium 4.5 mmol/L Chloride 103 mmol/L CO2 28 mmol/L Anion Gap 14.5 BUN 15 mg/dL Creatinine 1.2 mg/dL Cr Clearance (Est) 52.3300 mL/min Glucose 104 mg/dL Osmolality - Calculated 293 mOsm/kg Calcium 9.1 mg/dL Protein, Total 7.2 g/dL Albumin 3.9 g/dL Globulin 3.3 g/dL Bilirubin, Total 0.4 mg/dL ALT (SGPT) 15 U/L AST (SGOT) 27 U/L Alkaline Phosphatase 89 IU/L WBC 5.9 10 3/uL RBC 4.39 10 6/uL HGB 14.4 g/dL HCT 44.6 % MCV 101.6 fL MCH 32.8 pg MCHC 32.3 g/dL RDW 11.6 % Platelet Count 319 10 3/cmm MPV 9.7 fL Neutrophils 3.45 10 3/uL Lymphocytes 1.5 10 3/uL Monocytes 0.9 10 3/uL Eosinophils 0.0 10 3/uL Basophils 0.1 10 3/uL Neutrophil % 58.0 % Lymphocyte % 24.6 % Monocyte % 15.5 % Eosinophil % 0.7 % Basophils % 1.0 % NRBC % 0 % Problem List: 1. Grade 3 follicular lymphoma, stage IIIB. He had high FLIPI score at initial diagnosis in December 2012. He has been in remission following treatment with R-CHOP chemotherapy and maintenance rituximab for 2 years. 2. GERD. 3. History of superficial bladder cancer. 4. History of tubular adenoma of the colon, status post endoscopic resection in 2005. He had negative surveillance colonoscopy on 02/01/2019. 5. 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 Problems Addressed with this Encounter and Plan: 1. Patient with grade 3 follicular lymphoma, stage IIIB. He had high FLIPI score at initial diagnosis in December 2012. He had complete response to treatment with 6 cycles of R-CHOP chemotherapy, delivered from 01/11/2013 - 05/18/2013. He was then given maintenance rituximab for 2 years, completed on 03/28/2015. He was followed on expectant management following completion of maintenance rituximab in March 2015. During followup he had developed nodule at the angle of the jaw on the right side. He had previously been evaluated by Dr. Brenner, and it appeared to most likely represent a benign salivary gland tumor. Restaging PET/CT on 07/28/2018 showed a minimally hypermetabolic soft tissue lesion in the superficial right parotid gland measuring 2.5 x 1.3 cm, SUV eight 2.4. This was felt to be consistent with benign salivary gland tumor, but a solitary nidus of lymphoma was not excluded. Given those findings, he continued expectant management. He presents now with significant new complaints including left lower quadrant abdominal pain, abdominal bloating, and constipation. He has associated weight loss and he has had decline in performance status. He had recently seen Dr. Kinsey, and he is being scheduled for contrast-enhanced CT abdomen/pelvis. With his known lymphoma, I will add a chest CT for purposes of restaging. He will have further evaluation as indicated. 2. He has a history of superficial bladder cancer. 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 Pathology showed lamina propria invasion. He was given postoperative treatment with intravesical BCG. He completed his 3rd BCG installation in October 2020. His surveillance cystoscopy on 12/08/2020 showed abnormal appearance to the right bladder wall, consistent with an intramural type involvement. He is scheduled to have inpatient cystoscopy/biopsy later this month. Signed By: Bert Sifuentes M.D. <<Signature on File>>
== END 2020-12-13 11:33 | disposition home or self-care (01) ==
LOC: ONCMED 11:34
PROVIDERS: PCP Internal Medicine; Visit Provider Internal Medicine Medical Oncology
DX: Z08 Encounter for follow-up examination after completed treatment for malignant neoplasm (principal); Z85.72 Personal history of non-Hodgkin lymphomas; K21.9 Gastro-esophageal reflux disease without esophagitis; Z85.038 Personal history of other malignant neoplasm of large intestine; Z85.51 Personal history of malignant neoplasm of bladder; Z79.899 Other long term (current) drug therapy; Z92.21 Personal history of antineoplastic chemotherapy
CPT/HCPCS: 36415; 80053; 83615; 85025; 99214

== ENCOUNTER 2020-12-14 08:34 | Outpatient (CLI) | payer MEDICARE, SELFPAY ==
--- NOTE | 2020-12-14 | CT_ITS ---
WS: [id number] CT CHEST, ABDOMEN AND PELVIS WITH CONTRAST HISTORY: LLQ PAIN, LYMPHOMA TECHNIQUE: Contiguous 5 mm axial imaging performed through the chest, abdomen and pelvis with IV cont rast, oral contrast has been provided. Coronal and sagittal reformats chest. Coronal and sagittal ref ormats through the abdomen and pelvis. All CT scans at [facility] use at least one of the se dose optimization techniques: automated exposure control; mA and/or kV adjustment per patient size (includes targeted exams where dose is matched to clinical indication); or iterative reconstruction. CONTRAST: Visipaque 320; 95 mL IV. DLP: 1266.7 mGy.cm COMPARISON: 12/21/2015 and PET/CT 07/18/[address]: Mild pulmonary hyperexpansion. New linear nodule measuring 13 mm in the anterior RIGHT midd le lobe. Slightly spiculated and elongated. There is an additional 3 mm nodule at the lingula. No pne umonia. Pulmonary artery size is normal. Mild atherosclerosis aorta with no aneurysm. Heavy calcifica tion in the [place] coronary arteries. No mediastinal or hilar adenopathy. There is mild circumferenti al thickening of the distal esophagus and a moderate size hiatal hernia. Abdomen CT: No change in appearance of the liver. No metastatic disease or enlargement. Normal enhanc ement of the portal vein. Gallbladder is negative. No splenic enlargement. Normal pancreas and adrena l glands. Mild atherosclerosis aorta. RIGHT kidney: Mild cortical thinning upper pole RIGHT kidney. No solid mass. Interval development of moderate RIGHT hydroureteronephrosis. Mild ureteral induration and stranding. Increased soft tissue a round the ureter becomes greater distally. The ureter enters the urinary bladder and area of wall thi ckening measuring up to 9 mm. LEFT kidney: Mild enlargement of the LEFT kidney with perinephric stranding and severe hydronephrosis and hydroureter. Delayed enhancement of the cortex and delayed excretion. The soft tissue filling th e LEFT renal pelvis is complex with mild thickening and septations. There is thickening around the LE FT ureter with ureteral enlargement. LEFT ureter enters the urinary bladder in an area of mild wall t hickening. There is retroperitoneal thickening and stranding greatest at the level of the LEFT kidney. The indur ation and stranding continues centrally to surround the aorta. There are several small mildly vascula r and irregular lymph nodes in the retroperitoneum at the level of the LEFT kidney. The largest measu res 9 mm. No GI tract obstruction. Mild diffuse constipation. Pelvic CT: Bladder is well distended. There is asymmetric bladder wall thickening measuring up to 9 m m on the RIGHT. There is evidence for prior TR UPEP. No adenopathy in the inguinal regions. No pelvic adenopathy identified. Grade 1 L5 anterolisthesis with L5 spondylolysis. No osteoblastic or osteolytic bone disease. CT/CT chest abd pel w con* IMPRESSION: 1. Interval development of bilateral hydroureteronephrosis. There is more sign ificant enhancement and involvement of the LEFT urological system. There is enh ancement with stranding in the central LEFT renal pelvis. This could be neoplas tic or secondary to pyelonephritis. There is significant enhancement and dilata tion of the LEFT ureter, greater than the RIGHT. Mild delayed enhancement and e xcretion from the LEFT kidney. 2. Subcentimeter lymph nodes and fat stranding at the level of the kidneys ext ends to surround the aorta. Reactive response from the renal obstruction, neopl asm or infection. 3. Diffuse asymmetric bladder wall thickening greatest on the RIGHT suspicious for bladder cancer. 4. New 13 mm nodule in the RIGHT middle lobe and 3 mm nodule in the lingula. F avor these may be postinflammatory but will need further evaluation. Recommend [address] follow-up. 5. Large hiatal hernia. Notified Bert Sifuentes MD at 12/14/2020 11:21 AM.
[2020-12-14] MEDS: iohexol 300 mg/mL 50 mL Btl PO (09:57)
[2020-12-14] MEDS: iodixanol 320 mg/mL 100mL Btl IV (10:22)
== END 2020-12-14 08:35 | disposition home or self-care (01) ==
LOC: RAD 08:43
PROVIDERS: PCP Internal Medicine; Visit Provider Internal Medicine Medical Oncology
DX: C82.35 Follicular lymphoma grade IIIa, lymph nodes of inguinal region and lower limb (principal); K44.9 Diaphragmatic hernia without obstruction or gangrene
CPT/HCPCS: 71260; 74177

== ENCOUNTER 2020-12-15 08:52 | Outpatient (CLI) | payer MEDICARE, SELFPAY ==
[2020-12-15 09:44] LABS: Add Urine Microscopic? NO; Charge for UA Resulting for Rev
[2020-12-15 09:53] LABS: Bilirubin Urine Neg (Negative); Blood Urine Neg (Negative); Glucose Urine UA Norm (Normal); Ketones Urine Negative (Negative); Leukocyte Esterase Urine Negative (Negative); Nitrate Urine Negative (Negative); Protein Urine Neg (Negative); Specific Gravity, Urine 1.005 (1.005-1.030); Urine Appearance Clear (CLEAR); Urine Color Yellow (Yellow); Urobilinogen Urine Norm (Negative); pH Urine 7 (5-7)
== END 2020-12-15 08:53 | disposition home or self-care (01) ==
LOC: ONCMED 08:54
PROVIDERS: PCP Internal Medicine; Visit Provider Internal Medicine Medical Oncology
DX: C82.40 Follicular lymphoma grade IIIb, unspecified site (principal); Z20.828 Contact with and (suspected) exposure to other viral communicable diseases; Z79.899 Other long term (current) drug therapy
CPT/HCPCS: 81003; 87635

== ENCOUNTER 2020-12-22 16:32 | Observation (INO) | payer MEDICARE, SELFPAY ==
[2020-12-21 09:19] VITALS: BMI 24.0
[2020-12-22] VITALS (19 sets, daily range): BP systolic 151–181; BP diastolic 83–112; PULSE 64–80; RESP 11–24; TEMP 36.2–36.6; O2SAT 91–98; BMI 24.0
--- NOTE | 2020-12-22 | SCC_ITS ---
Procedure Done: 1. Cystoscopy with bilateral retrograde ureteropyelogram's 2. Left ureteroscopy with dilation of ureteral stricture 3. Bilateral ureteral stent placements (6 [place] by 28 cm double-pigtail without string) 4. Transurethral section of bladder tumor large 170.4 seconds of fluoroscopic guidance, for a cumulative dose of 47.15 mGy, was provided to Dr. Johnson by the radiology department. C-arm images of the abdomen were saved for the patient's permanent record. [facility]
--- NOTE | 2020-12-22 | SC_ITS ---
WS: [id number] C-arm fluoroscopy for bilateral retrograde ureterograms: 12/22/2020 Clinical Data: RETROGRADE, STENT Comparison: None. Findings: Bilateral retrograde injections of the ureters were performed. Both ureters showed narrowing at the l evel of the pelvic brim. SC/C-arm FL for Urology Impression: Bilateral retrograde ureterograms by Dr. Johnson
[2020-12-22] MEDS: sodium chloride 0.9% 1,000 ML 30 ML IV ×2 (12:15→15:25)
--- NOTE | 2020-12-22 12:46 | ANES.PREANE2 ---
Pre-Anesthetic Assessment Pre-Anesthetic Assessment: Height/Weight: Height 1.78 m Weight 76.204 kg Temp Pulse Resp BP Pulse Ox 97.1 F L 71 18 156/87 98 12/22/20 12:20 12/22/20 12:20 12/22/20 12:20 12/22/20 12:20 12/22/20 12:20 Preop Diagnosis: History of bladder cancer with suspicious bladder mucosa Proposed Procedure: Operation Date: 12/22/20 13:00 Proposed Procedures p Cystoscopy 73957 [id number] 97192 C67.9 N13.30(Not Applicable) - Hasmukh Johnson MD s Transurethral Resection Bladder Tumor(Not Applicable) - MD page Ly Retrograde Pyelogram(Not Applicable) - MD page Ly Ureteroscopy(Not Applicable) - MD page Ly Ureteral Stent Placement(Not Applicable) - Hasmukh Johnson MD Was Beta Drew taken within 24 hours: N/A Was Clonidine taken within 24 hours: N/A Last intake: Intake Last Liquid Date 12/21/20 Last Liquid Time 19:00 Last Solid Date 12/21/20 Last Solid Time 18:30 Social: Social History: No alcohol and No tobacco Exam: Pre-Anes Outpt Exam: alert, oriented x 3, clear to auscultation bilaterally and regular rate & rhythm Airway: Submandibular: WNL Cervical ROM: WNL MP: 2 Dentition: False (lower) CV/HEM: Comments: No CP no SOB GI: GI: GERD Musc/skel: Musc/skel: OA/DJD Anesthetic Plan: ASA status: 2 Anesthesia: General Risk of > 500 ml blood loss (7ml/kg in children): No PFSH Anesthesia PFSH: Medical History Bladder cancer Carpal tunnel syndrome on right Chronic left hip pain H/O cancer of gall bladder History of nonmelanoma skin cancer Lumbar back pain with radiculopathy affecting lower extremity NHL (non-Hodgkin's lymphoma) 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
--- NOTE | 2020-12-22 13:09 | P.HPUD_ITS ---
Surgery/Procedure H&P Update DATE OF PROCEDURE: December 22, 2020 DATE H&P PERFORMED: 12/15/20 H&P UPDATE INFORMATION: I have reviewed H&P completed within last 30 days, I have examined patient prior to procedure, No changes to prior documentation and H&P is in [facility] EMR on date indicated CHANGES TO PREVIOUS DOCUMENTATION: Reviewed lesion vs tumor on consent form having no clinical significance as to the procedure with staff and patient. PREOP DIAGNOSIS: History of bladder cancer with suspicious bladder mucosa PLANNED PROCEDURE: Operation Date: 12/22/20 13:00 Proposed Procedures p Cystoscopy [id number] 07612 C67.9 N13.30(Not Applicable) - Hasmukh Johnson MD s Transurethral Resection Bladder Tumor(Not Applicable) - Hasmukh Johnson MD s Retrograde Pyelogram(Not Applicable) - Hasmukh Johnson MD s Ureteroscopy(Not Applicable) - Hasmukh Johnson MD s Ureteral Stent Placement(Not Applicable) - Hasmukh Johnson MD
[2020-12-22] MEDS: levofloxacin-dextrose 5 % 500 MG/100 ML PREMIX 100 MG IV (13:11)
[2020-12-22] MEDS: lidocaine 2% Urojet 20 mL TOPICAL (13:37)
--- NOTE | 2020-12-22 14:58 | ANE.PACU2 ---
Inpatient post-anesthesia follow up: Airway intact: Yes Vital signs: Temperature 97.9 F Pulse Rate 80 Respiratory Rate 16 Blood Pressure 168/94 Pulse Oximetry 96 Oxygen Delivery Me thod Room Air Oxygen Flow Rate Fraction of Inspir ed Oxygen Hydration adequate: Yes Nausea and vomiting: No Pain level: 2 Mental status: Baseline
--- NOTE | 2020-12-22 14:58 | SUR.PHASEI ---
PT SLEEPS IF NOT DISTURBED WITH GOOD RESP PT AWAKES TO VOICE AND REQUESTS ICE CHIPS RAMIREZ WITH LT PINK URINE NO CLOTS, 3 WAY WITH PLUG IV PATENT
--- NOTE | 2020-12-22 15:07 | P.OP_ITS ---
Operative Report Date of procedure: December 22, 2020 Pre-op Diagnosis: 1. History of bladder cancer with suspicious bladder lesion 2. Bilateral ureteral obstruction unclear etiology, suspicious for possible neoplastic distal ureteral involvement on CT 3. Abnormal mucosa left renal pelvis Post-op Diagnosis: 1. Grossly abnormal right lateral bladder wall with intramural appearance of abnormality. 2. Bilateral ureteral narrowing with irregular appearance and multiple strictured areas accounting for the obstruction. Inaccessible with ureteroscope 3. Bilateral hydronephrosis Procedure Done: 1. Cystoscopy with bilateral retrograde ureteropyelogram's 2. Left ureteroscopy with dilation of ureteral stricture 3. Bilateral ureteral stent placements (6 Citizen Of [place] by 28 cm double-pigtail w ithout string) 4. Transurethral section of bladder tumor large Implants: Bilateral ureteral stents Specimens removed/disposition: Right lateral bladder wall tumor Pathology: Right lateral bladder wall tumor Surgeon: Alex Anesthesia: General Estimated blood loss: Less than 20 cc Urine output: Not measured Complications: None Findings: Bilateral ureteral narrowing with multiple levels of involvement in the distal ureters some rather long areas of involvement in other areas of very tight short involvement. Could not clearly see papillary filling defect on retrogrades. Could not access the ureters beyond the very distal aspect even after dilation of the distal ureteral narrowing. Because of ureteral narrowing and stricturing is unclear still. Stents placed for passive dilation and plans of relook. Large area of what appeared to be intramural thickening and some generalized mucosal abnormality without papillary changes on the right lateral wall lateral to the right ureteral orifice. Deeply resected down to visible muscle fiber. >5 cm area resected. Gould catheter left in place. Condition: stable Disposition: PACU Brief History: Mr. Hoffman is an absolutely a delightful 85-year-old well-preserved male who has a history of initially noninvasive low risk bladder cancer but later developed high-grade carcinoma in situ and lamina propria invasive disease. He had had resection of this area and a repeat deep sectioning based on concern for possible muscle invasion that was under staged. Second biopsy did not show muscle involvement. He underwent recent surveillance cystoscopy and the characteristics were still suspicious and for that reason it was recommended he undergo TURBT again. About that same time he saw Dr. Siufentes and complained of feeling very tired and fatigued and a CT scan of abdomen pelvis and chest was performed. It showed bilateral hydronephrosis that was new since his prior imaging, some soft tissue density in the distal ureters, some enhancement of the left renal pelvic urothelium without clear mass, and thickened right greater than sign left bladder wall. The exact etiology of the ureteral obstruction was unclear but it appeared to be intraureteral and not a bladder lumen mass. It was recommended that he undergo the previously planned TURBT but in addition bilateral retrograde ureteropyelogram's, ureteroscopy etc. Procedure: After routine preoperative evaluation examination and obtaining of informed consent he was taken to the operating suite on 12/22/2020 where general anesthesia was administered without difficulty. Prepped and draped in usual sterile fashion in dorsolithotomy position paying careful attention to avoiding pressure points. Appropriate timeout was performed, SCDs confirmed to be functioning, preoperative antibiotics administered, beta-barbara protocol confirmed. 21 Citizen [place] cystoscope with 30 degree lens was introduced urethra meatus and advanced into the bladder under videoscopy. The bladder was systematically examined with grossly abnormal right lateral bladder wall extending toward the ureteral orifice but not apparently involving it. It was intramural thickening with some mucosal changes but no clear papillary lesions. It confirmed the previous findings on flexible cystoscopy in the clinic. Nothing suspicious elsewhere. The orifices themselves appeared normal. An 8 Citizen [place] cone-tip catheter was intubated into the LEFT ureteral orifice and contrast could be injected part of the way up but it was hard to get a good seal. A flexible tip guidewire was then passed into the very distal aspect of the ureter and open-ended ureteral catheter was advanced over the guidewire into the distal end of the ureter only creating a tight seal. The wire was removed and a RETROGRADE URETERAL PYELOGRAM was performed: The ureter was grossly abnormal. There were a long strictured appearing area with irregular mucosa noted distally, a very sharp tight ureteral strictured area extending no more than a millimeter or 2 proximal to that and a very tortuous dilated ureter proximal to that. There also appeared to be some other areas of narrowing proximal to that. The pyelocalyceal system was significantly dilated. Similar findings were also noted on the RIGHT side, almost identical to the left. No distinct papillary lesions were identified just rather diffuse and sporadic levels of ureteral narrowing of unclear etiology. A flexible tip guidewire was placed with some difficulty utilizing an open-ended ureteral catheter, zip Glidewire, and exchanged for a Regular wire and then a 6 Citizen [place] by 28 cm double-pigtail stent was advanced over the guidewire through the cystoscope into appropriate position via fluoroscopy and cystoscopy. The same procedure was then performed on the other side in order to get the same size stent in. Stents were confirmed to be draining. The urethra was then calibrated with Aurora sounds and easily accommodated 30 Citizen [place]. 2% lidocaine jelly was instilled into the urethra then a well-lubricated 25 Citizen [place] continuous-flow resectoscope sheath with visual obturator in place was advanced into the bladder without difficulty. The gyrus bipolar system with super loop was utilized for resection. The right lateral bladder wall lesion was resected. It was >5 cm in diameter of resection. It was taken deeply into the bladder wall where muscle was visualized. There were a couple other areas on the floor adjacent to the right lateral wall lesion that were suspicious looking that were also resected and sent for the same evaluation. No other specimens were taken. The button probe was then utilized for fulguration of the base for meticulous hemostasis which was visually confirmed. All chips were taken out of the bladder with an [employer] evacuator. The bladder was drained with a 20 Citizen [place] three-way Gould catheter with 10 cc placed in the balloon, efflux was clear. The irrigation port was plugged. He tolerated procedure well without complications and was awakened in the operating room and returned to the recovery room in stable condition. PLANS: 1. Will probably discharged with Gould catheter in place due to the depth of resection and take out early next week 2. Plan for relook ureteroscopy bilaterally after approximately 3 weeks of passive dilation. 3. Long detailed discussion was conducted with the regarding these finding s and implications.
--- NOTE | 2020-12-22 15:10 | SUR.PHASEI ---
PT AWAKE ALERT ON RA TAKING ICE CHIPS , URINE IN CATHETER REMAINS CLEAR LT PINK NO CLOTS.
--- NOTE | 2020-12-22 15:47 | SUR.PHASEI ---
1545 PT AWAKE ALERT VSS PT TO OPS ROOM 5 FOR HOLDING WILL UPDATE AND LET HER SIT WITH PT , WE ARE WAITING FOR A BED.
[2020-12-22] MEDS: HYDROcodone-acetaminophen 5-325 mg Tablet 1 TAB PO (16:37)
--- NOTE | 2020-12-22 16:37 | SUR.PHASEI ---
1630 PT STILL WAITING FOR ROOM , PT NOW C/O OF DISCOMFORT OF 7 PER FACE SCALE PT GIVEN PO PAIN MED PRESCRIBED FOR THE FLOOR PT ATE SOME CRACKERS AND PUDDING WITH MED. AT BEDSIDE.
[2020-12-22] MEDS: dextrose 5%-ns + KCl 20 20 MEQ/1,000 ML BAG 50 MEQ IV (18:43)
[2020-12-23 00:01] VITALS: BP 121/79; PULSE 95; RESP 18; TEMP 36.7; O2SAT 90
[2020-12-23 03:31] VITALS: BP 136/76; PULSE 68; RESP 17; TEMP 36.1; O2SAT 97
[2020-12-23 07:16] VITALS: BP 134/73; PULSE 68; RESP 18; TEMP 37.1; O2SAT 94
--- NOTE | 2020-12-23 08:36 | PM.DCS ---
Discharge Providers Date of Admission: 12/22/20 16:32 Date of Discharge: December 23, 2020 Attending Provider at Admission: Hasmukh Johnson MD Attending Provider at Discharge: Hasmukh Johnson MD Primary Care Provider: Jimbo Kinsey MD Diagnoses at Discharge Discharge Diagnosis (1) Recurrent malignant neoplasm of bladder: Status: Acute (2) Bilateral ureteral obstruction: Status: Acute Reason for Visit Reason for Visit: Bladder mass, ureteral obstruction Hospital Course Hospital Course He was admitted on 12/22/2020 for cystoscopy, transurethral resection of bladder tumor, bilateral retrogrades, ureteroscopy and stenting. Intraoperatively he had a resection of the right lateral wall tumor extending >5 cm. Path is pending. Did well from that perspective. Both ureters were severely scarred and obstructive changes were identified both long irregular stretches of the distal ureter with intermingling of very short tight strictured areas. Could not get a scope up to the areas involved because of the density of the narrowing. No definitive tumor was identified in the ureters. Ultimately stents were left indwelling bilaterally for passive dilation in order to further visualize the ureters hopefully at a later date for approximately 3 weeks. Postoperatively he did well. Was discharged with a Gould catheter in place on postop day #1 to allow for more bladder healing. We had a full review on postop day number one of the findings and the implications. Discussed alternative strategies if the repeat ureteroscopy is again unsuccessful due to inability to pass the scope from narrowing. I will see him back in my office midweek next week for voiding trial hopefully have a pathology report back by that time. He was discharged in stable condition. Physical Exam Const: COMMON NORMALS: no acute distress, alert and well nourished GENERAL APPEARANCE: well kempt and well developed ORIENTATION/CONSCIOUSNESS: not confused HENMT: COMMON NORMALS: normocephalic and atraumatic HEAD & SCALP: normocephalic and atraumatic Eye: COMMON NORMALS: conjunctivae normal and no scleral icterus CONJUNCTIVA: Yes conjunctivae normal Neck/C-Spine: COMMON NORMALS: full ROM GENERAL: Yes normal visual inspection Resp: COMMON NORMALS: normal respiratory effort EFFORT & INSPECTION: No labored and No Actively coughing Extremity: COMMON NORMALS: no clubbing, cyanosis or edema Neuro: COMMON NORMALS: no focal motor deficits SENSORIUM/ORIENTATION: Yes alert Psych: COMMON NORMALS: mental status grossly normal APPEARANCE: Yes grossly normal and Yes well kempt ATTITUDE: Yes calm and Yes engaged Skin: COMMON NORMALS: no rashes or lesions noted and no jaundice GENERAL SKIN EXAM: no rashes or lesions noted Urinary Catheter Management^: 3-way Urethral CBI: Cath Placed During This Visit: yes Reason for Continuing Indwelling Catheter: Acute Urinary Retention or Obstruction Urinary Catheter Date of Insertion: 12/22/20 Urinary Catheter Time of Insertion: 14:35 Discharge Data Data Completed and Pending: Pending at discharge Category Date Time Status Pathology: Surgic al [PTH] Routine Pth 12/22/20 14:34 Ordered Vitals: Last Vital Signs Temp 98.8 F 12/23/20 07:16 Pulse 68 12/23/20 07:16 Resp 18 12/23/20 07:16 BP 134/73 12/23/20 07:16 Pulse Ox 94 12/23/20 07:16 Discharge Plan Discharge Patient Disposition: Home Condition: Stable Prescriptions: New Cipro 250 mg tablet 250 mg PO BID Qty: 10 RF: 0 Continued glucosamine sulfate 1,000 mg capsule 1,000 mg PO DAILY RF: 0 multivitamin Capsule 1 cap PO QAM RF: 0 omeprazole 40 mg capsule,delayed release(DR/EC) 40 mg PO QDAY Qty: 90 RF: 3 Linzess 72 mcg capsule 72 mcg PO DAILY RF: 0 sennosides-docusate sodium [Senna-S] 8.6-50 mg Tablet 1 tab-cap PO DAILY RF: 0 Discharge Orders: Discharge Order (Routine); Ordered 12/23/20 Ordered By: Hasmukh Johnson Referrals: Hasmukh Johnson MD [Physician] - 12/27/20 (Voiding trial Pathology report check) Discharge Diet: Usual diet Discharge Activity: Limit activity as instructed Patient Instructions: Opioid Safety Activity Restrictions/Additional Instructions: 1. Lift nothing >10 pounds. 2. We will see you back in my office on Friday for voiding trial and hopefully be able to review the pathology report. 3. Tentative plans for cystoscopy, bilateral ureteroscopy to evaluate the narrowed ureters sometime around 3 weeks from now. The stents hopefully will allow enough dilation passively of the ureters to make passage of the scope into each ureter successful. Discharge Attestations Time Spent in Discharge Care*: greater than 30 min Specific Discharge Activities: educating patient, documenting/other paperwork and evaluating patient/reviewing data Quality Metrics Clinical Quality Measures During this hospital stay, did patient experience: None Coding Level of Care Code Acute g [facility] note Diagnoses Recurrent malignant neoplasm of bladder C67.9 Bilateral ureteral obstruction N13.5
[2020-12-23] MEDS: sennosides-docusate Tablet 1 TAB PO (08:43)
[2020-12-23] MEDS: pantoprazole DR 40 mg Tablet PO (08:43)
[2020-12-23 10:37] VITALS: BP 134/73; PULSE 68; RESP 18; TEMP 37.1; O2SAT 94
--- NOTE | 2020-12-26 12:22 | PC.SOCIAL ---
discharge follow up call made. Patient saw Dr. Johnson today and had luna dc'd. Pt c/o pain to lower abdomen, bladder. Will call Dr. Richard office if pain continues. Patient continuing to take Cipro.
== END 2020-12-23 10:38 | disposition home or self-care (01) ==
LOC: MEDSURG 16:34
PROVIDERS: Admitting Provider Urology; PCP Internal Medicine; Visit Provider Urology
PROC: 0TJB8ZZ Inspection of Bladder, Via Natural or Artificial Opening Endoscopic (ICD-10-PCS; CPT 52000; principal; 2020-12-22 13:00)
PROC: 0TBB8ZZ Excision of Bladder, Via Natural or Artificial Opening Endoscopic (ICD-10-PCS; CPT 52240; 2020-12-22 13:00)
PROC: (CPT 74420; 2020-12-22 13:00)
PROC: 0TJ98ZZ Inspection of Ureter, Via Natural or Artificial Opening Endoscopic (ICD-10-PCS; CPT 52351; 2020-12-22 13:00)
PROC: (CPT 50605; 2020-12-22 13:00)
DX: C67.9 Malignant neoplasm of bladder, unspecified (principal); N13.5 Crossing vessel and stricture of ureter without hydronephrosis
CPT/HCPCS: 52240; 52332; 52344; 76000; 88305; 96365; C2625; G0378; J1100; J1956; J2405; J2704; J2710; J3010; J3490; J7030

== ENCOUNTER 2021-01-03 10:57 | Outpatient (CLI) | payer MEDICARE, SELFPAY ==
--- NOTE | 2021-01-03 11:00 | MR_ITS ---
WS: [id number] MRI LEFT SHOULDER NONCONTRAST TECHNIQUE: Sagittal T2, coronal T1, T2 and proton density imaging. Axial gradient PDE imaging. CLINICAL INFORMATION: S46.012A - Strain of muscle(s) and tendon(s) of the rotat... COMPARISON: None. FINDINGS: Moderate degenerative arthritis AC joint with a small amount of fluid in the AC joint. Subacromial an d subdeltoid fluid. Narrowing of the subacromial space with advanced rotator cuff arthropathy. Mild downsloping of the ac romion with subacromial spurring. Full-thickness tear of the distal supraspinatus with retraction to the level of the glenohumeral joint. Small joint effusion. Full-thickness tear of the infraspinatus w ith retraction to the glenohumeral joint. Normal teres minor. Full-thickness tear of the subscapulari s. Atrophy of the supraspinatus, infraspinatus, and subscapularis muscle bellies. Tiny biceps remnant wi thin the bicipital groove with chronic tear. Advanced degenerative arthritis glenohumeral joint with hypertrophic spurring. Chronic appearing degenerative fraying glenoid labrum. IMPRESSION: 1. Advanced degenerative arthritis AC joint with downsloping acromion. Advanced narrowing of the sub acromial space. 2. Moderate degenerative arthritis AC joint with edema. 3. Full-thickness tears of the supraspinatus and infraspinatus with retraction to the level of gleno humeral joint. High-grade tear of the subscapularis with tendon retraction. 4. Teres minor appears intact. 5. Atrophy of the supraspinatus, infraspinatus and subscapularis muscle bellies. 6. Tiny remnant biceps tendon within the bicipital groove. 7. Advanced arthritis glenohumeral joint with hypertrophic spurring.
== END 2021-01-03 10:58 | disposition home or self-care (01) ==
LOC: RADSHAW 10:58
PROVIDERS: PCP Internal Medicine; Visit Provider Orthopaedic Surgery
DX: S46.012A Strain of muscle(s) and tendon(s) of the rotator cuff of left shoulder, initial encounter (principal); X58.XXXA Exposure to other specified factors, initial encounter; M19.012 Primary osteoarthritis, left shoulder; R60.0 Localized edema; M62.512 Muscle wasting and atrophy, not elsewhere classified, left shoulder
CPT/HCPCS: 73221

== ENCOUNTER 2021-01-12 12:34 | Day surgery (SDC) | payer MEDICARE, SELFPAY ==
--- NOTE | 2021-01-12 | SCC_ITS ---
Procedure Done: 1. Cystoscopy, bilateral ureteroscopy 2. Bilateral ureteral stent exchange 53.4 seconds of fluoroscopic guidance, for a cumulative dose of 13.44 mGy, was provided to Dr. Johnson by the radiology department. C-arm images of the abdomen were saved for the patient's permanent record. [facility]
--- NOTE | 2021-01-12 12:52 | SC_ITS ---
WS: [id number] C-ARM RADIOGRAPHS ABDOMEN; 3 IMAGES HISTORY: Bilateral ureteroscopy COMPARISON: None available. Intraoperative imaging during bilateral ureteroscopy. Proximal pigtails are coiled in the expected lo cation of the kidneys. SC/C-arm [place] for Urology IMPRESSION: Intraoperative imaging during bilateral ureteroscopy's.
[2021-01-12 13:01] VITALS: BP 166/85; PULSE 59; RESP 18; TEMP 36.3; O2SAT 96
[2021-01-12] MEDS: sodium chloride 0.9% 1,000 ML 30 ML IV (13:24)
[2021-01-12 13:34] LABS: Basophils # 0.1 10^3/uL (0.0-0.1); Eosinophils # 0.1 10^3/uL (0.0-0.8); Hematocrit 42.4 % (42.0-52.0); Hemoglobin 13.5 g/dL (11.7-16.6); Lymphocytes # 1.5 10^3/uL (0.8-4.8); Lymphocytes % 24.5 %; Mean Corpuscular HGB Conc 31.8 g/dL (30.0-36.0); Mean Corpuscular Hemoglobin 31.9 pg (28.0-34.0); Mean Corpuscular Volume 100.2 fl (80-94); Mean Platelet Volume 10.2 fL (7.4-10.4); Monocytes # 0.7 10^3/uL (0.2-0.9); Neutrophils # 3.48 10^3/uL (1.8-7.7); Neutrophils % 58.8 %; Nucleated Red Blood Cells % 0 %; Platelet Count 164 10^3/cmm (130-400); Red Blood Count 4.23 10^6/uL (4.1-5.3); Red Cell Distribution Width 12.6 % (12.1-15.1); White Blood Count 5.9 10^3/uL (4.0-10.0)
--- NOTE | 2021-01-12 13:59 | ANES.PREANE2 ---
Pre-Anesthetic Assessment Pre-Anesthetic Assessment: Height/Weight: Height 1.78 m Temp Pulse Resp BP Pulse Ox 97.3 F L 59 L 18 166/85 96 01/12/21 13:01 01/12/21 13:01 01/12/21 13:01 01/12/21 13:01 01/12/21 13:01 Preop Diagnosis: Muscle invasive bladder cancer Proposed Procedure: Operation Date: 01/12/21 13:50 Proposed Procedures p Cystoscopy [id number] G67.9 N13.5(Not Applicable) - Hasmukh Johnson MD s Ureteral Stent Exchange(Not Applicable) - Hasmukh Johnson MD s Ureteroscopy(Bilateral) - Hasmukh Johnson MD Familial anesthetic complications: None Was Beta Drew taken within 24 hours: N/A Was Clonidine taken within 24 hours: N/A Last intake: Intake Last Liquid Date 01/12/21 Last Liquid Time 08:30 Last Solid Date 01/11/21 Last Solid Time 19:00 Social: Social History: No alcohol and No tobacco Exam: Pre-Anes Outpt Exam: alert, oriented x 3, clear to auscultation bilaterally and regular rate & rhythm Airway: Cervical ROM: WNL MP: 3 Dentition: False GI: GI: GERD Anesthetic Plan: ASA status: 2 Anesthesia: General Risk of > 500 ml blood loss (7ml/kg in children): No Meds/Allergies Current Medications: Current Medications Generic Name Dose Route Start Last Admin Trade Name Freq PRN Reason Stop Dose Admin Sodium Chloride 1,000 mls @ 30 ml s/hr 01/12/21 13:00 01/12/21 13:24 Sodium Chloride 0.9% IV 01/13/21 12:59 30 mls/hr .Q24H YOEL Administration PFSH Anesthesia PFSH: Medical History Bilateral ureteral obstruction Bladder cancer Carpal tunnel syndrome on right Chronic left hip pain H/O cancer of gall bladder History of nonmelanoma skin cancer Lumbar back pain with radiculopathy affecting lower extremity NHL (non-Hodgkin's lymphoma) Other male erectile dysfunction Recurrent malignant neoplasm of bladder Surgical History S/P colonoscopy 02/01/2019 S/P hernia repair Status post surgical removal and fulguration of bladder neoplasm Family History Father , age 53 Cancer lung cancer Mother Diabetes Heart disease Social History Smoking and tobacco status: former smoker Alcohol intake: current Alcohol intake frequency: few times a month Household members: spouse Housing: House Marital status: Current occupational status: retired History of recent travel: No Data Anesthesia CBC & Chem 7: 01/12/21 13:20 01/12/21 13:20 Other Labs: Laboratory Results - last 48 hr 01/12/21 13:20 WBC 5.9 RBC 4.23 Hgb 13.5 Hct 42.4 MCV 100.2 H MCH 31.9 MCHC 31.8 RDW 12.6 Plt Count 164 MPV 10.2 Neut % (Auto) 58.8 Lymph % (Auto) 24.5 Granite % (Auto) 12.0 Eos % (Auto) 2.0 Baso % (Auto) 1.0 Neut # (Auto) 3.48 Lymph # (Auto) 1.5 Granite # (Auto) 0.7 Eos # (Auto) 0.1 Baso # (Auto) 0.1 Nucleated RBC % (auto) 0 Nucleated RBCs # 0.0 Cardiac Studies: No Data to Display
[2021-01-12 14:11] LABS: Anion Gap 18.2 (5-19); Blood Urea Nitrogen 16 mg/dL (8-23); Carbon Dioxide 24 mmol/L (22-29); Chloride 105 mmol/L (98-107); Glucose 83 mg/dL (65-115); Osmolality Calculated 296 mOsm/kg (285-295); Potassium 4.2 mmol/L (3.5-5.1); Sodium 143 mmol/L (136-145)
--- NOTE | 2021-01-12 14:31 | P.HPUD_ITS ---
Surgery/Procedure H&P Update DATE OF PROCEDURE: January 12, 2021 DATE H&P PERFORMED: 12/26/20 H&P UPDATE INFORMATION: I have reviewed H&P completed within last 30 days, I have examined patient prior to procedure, No changes to prior documentation and H&P is in [facility] EMR on date indicated CHANGES TO PREVIOUS DOCUMENTATION: Since last visit the pathology report of the TURBT came back muscle invasive cancer. We spent a lot of time discussing the importance of establishing a pathologic process of both ureters leading to bilateral new ureteral obstruction. Last attempt at passing ureteroscope was unsuccessful on both sides due to what appeared to be significant stricturing without obvious identifiable intraluminal malignancy. He is likely heading toward a cystectomy based on the pathology of the TURBT and assessment of the ureters is considered to be important for planning related to that as well as the potential for a left nephro ureterectomy if the enhancing areas in the left proximal ureter/renal pelvis end up being transitional cell carcinoma. Both he and his expressed good understanding regarding this explanation and rationale and form consent was confirmed PREOP DIAGNOSIS: Muscle invasive bladder cancer PLANNED PROCEDURE: Operation Date: 01/12/21 13:50 Proposed Procedures p Cystoscopy [id number] G67.9 N13.5(Not Applicable) - Hasmukh Johnson MD s Ureteral Stent Exchange(Not Applicable) - Hasmukh Johnson MD s Ureteroscopy(Bilateral) - Hasmukh Johnson MD
--- NOTE | 2021-01-12 14:58 | PM.OP ---
Operative Report Date of procedure: January 12, 2021 Pre-op Diagnosis: Muscle invasive bladder cancer with bilateral ureteral obstruction Post-op diagnosis: same Procedure Done: 1. Cystoscopy, bilateral ureteroscopy 2. Bilateral ureteral stent exchange Pathology: none sent Surgeon: Alex Anesthesia: General Urine output: Not measured Findings: Ureters still inaccessible to the ureteroscope. Stents were replaced without difficulty. Brief History: Mr. Hoffman is a delightful 85-year-old white male with a long history of superficial bladder cancer and recent development of muscle invasive bladder cancer. He was also found to have bilateral ureteral obstruction distally of unclear etiology on CT scan. In addition to that there was evidence of contrast enhancement of the urothelium of the left upper ureter and renal pelvis of unclear etiology. At the time of his TURBT recently an attempt was made to perform bilateral ureteroscopy to identify the source of bilateral obstruction (CT scan failed to show any extrinsic source and specifically any evidence of recurrent lymphoma after having been treated in 2014) and also to assess the upper urinary tract urothelial enhancement. At the first attempt about 3 weeks ago his ureters were found to be tightly obstructed and with retrograde pyelogram showing fairly dense narrowing stretching several centimeters up from the ureteral orifice until the distinct caliber change and roughly the level of the pelvic vessels. Proximal to that the ureters were dilated and tortuous. No clear filling defect was identified. The scope could not be safely passed of either ureter due to the tightness and for that reason bilateral ureteral stents were left indwelling for passive dilation with the hopes of being able to negotiate the ureters at reattempt today. We also reviewed the significance of muscle invasive bladder cancer and the likelihood that he would require extirpative therapy. We discussed bladder sparing options but with his ureters obstructed it was unclear how that could be managed Case was reviewed with Dr. Santoyo in [place] and the plan was to reattempt evaluation of the ureters to try to clarify the upper urinary tracts as part of staging preoperatively in order to have a clear path for treatment. Procedure: After routine preoperative evaluation examination and obtaining of informed consent he was taken to the operating suite on 01/12/2021 where general anesthesia was administered without difficulty after appropriate timeout was performed, SCDs confirmed to be functioning, preoperative antibiotics administered, beta-barbara protocol confirmed. Prepped and draped in the usual sterile fashion in dorsolithotomy position paying careful attention to avoiding pressure points. 21 Danish cystoscope with 30 degree lens was introduced into the urethra meatus and advanced into the bladder under videoscopy. The bladder was systematically examined. The area of resection on the right lateral wall was healing well. Both stents were in expected position with no encrustation. No other gross abnormality was identified. A flexible tip guidewire was then advanced up the left ureter next to the stent without difficulty curling in the area of the renal pelvis and the stent was removed easily with grasping forceps and no difficulty uncurling the proximal end. The ureteroscope was then advanced next to the guidewire but could only be advanced about 2 inches before the previously identified intraluminal narrowing was again encountered and was not bypassable with the scope next to the wire. The scope was then backloaded over the guidewire with the same result. The fixation of the ureter prevented the scope easily passing beyond that point and it was decided to not push excessively. Previous retrograde pyelograms had been can performed and it was decided not to repeat those this time based on the above findings. The cystoscope was then backloaded over the guidewire and a 7 Danish by 28 cm double-pigtail stent was advanced over the guidewire through the cystoscope into appropriate position as confirmed via fluoroscopy and cystoscopy. Attention was then directed to the right side. The wire was advanced next to the right ureteral stent up into the area of the renal pelvis and the stent removed without difficulty. This time the wire was passed through the scope initially and the 7 Danish offset semirigid ureteroscope was advanced over the guidewire but with the same result as on the left. The narrowed area occurred approximately the same distance up the ureter. The amount of force that would applied to gain any further ground would not have been safe and for that reason the procedure was abandoned. The cystoscope was then backloaded over the guidewire and a 7 Danish by 28 cm double-pigtail stent was advanced over the guidewire through the cystoscope into appropriate position as confirmed via fluoroscopy and cystoscopy. Both stents were confirmed to be draining. The bladder was drained and the procedure was completed. He tolerated procedure well without complications and was awakened in the operating room and returned to the recovery room in stable condition. PLANS: 1. Consult Dr. Sifuentes and Dr. Santoyo for consideration of treatment for muscle invasive bladder cancer. 2. Given the above findings it appears that the next reasonable option would be to consider intraoperative inspection of the ureters after division at time of cystectomy with likely open ureteroscopy and treatment according to the findings including potentially even nephro ureterectomy. 3. The above options have been discussed in detail with the patient and his preoperatively on multiple occasions but it still disappointing that no further information could be gained from todays efforts
[2021-01-12 16:03] VITALS: BP 169/71; PULSE 69; RESP 16; TEMP 36.3; O2SAT 96
[2021-01-12 16:05] VITALS: BP 141/87; PULSE 67; RESP 17; O2SAT 98
[2021-01-12 16:10] VITALS: BP 148/79; PULSE 63; RESP 18; TEMP 36.5; O2SAT 98
== END 2021-01-12 14:45 | disposition home or self-care (01) ==
PROVIDERS: PCP Internal Medicine; Visit Provider Urology
PROC: 0TJB8ZZ Inspection of Bladder, Via Natural or Artificial Opening Endoscopic (ICD-10-PCS; CPT 52000; principal; 2021-01-12 13:40)
PROC: (CPT 52332; 2021-01-12 13:40)
PROC: 0TJ98ZZ Inspection of Ureter, Via Natural or Artificial Opening Endoscopic (ICD-10-PCS; CPT 52351; 2021-01-12 13:40)
DX: N13.5 Crossing vessel and stricture of ureter without hydronephrosis (principal); C67.9 Malignant neoplasm of bladder, unspecified; Z87.891 Personal history of nicotine dependence
CPT/HCPCS: 52332; 52351; 76000; 80048; 85025; C2625; J0330; J2405; J2704; J3010; J3490; J7030

== ENCOUNTER 2021-01-26 09:32 | Outpatient (CLI) | payer MEDICARE, SELFPAY ==
[2021-01-26 10:59] LABS: Basophils # 0.1 10^3/uL (0.0-0.1); Basophils % 1.2 %; Eosinophils # 0.1 10^3/uL (0.0-0.8); Eosinophils % 1.2 %; Hemoglobin 12.6 g/dL (11.7-16.6); Lymphocytes # 1.2 10^3/uL (0.8-4.8); Lymphocytes % 29.4 %; Mean Corpuscular HGB Conc 33.2 g/dL (30.0-36.0); Mean Corpuscular Hemoglobin 32.2 pg (28.0-34.0); Mean Corpuscular Volume 97.2 fl (80-94); Mean Platelet Volume 10.1 fL (7.4-10.4); Monocytes # 0.5 10^3/uL (0.2-0.9); Monocytes % 12.3 %; Neutrophils # 2.26 10^3/uL (1.8-7.7); Neutrophils % 53.5 %; Nucleated Red Blood Cells % 0 %; Platelet Count 109 10^3/cmm (130-400); Red Blood Count 3.91 10^6/uL (4.1-5.3); Red Cell Distribution Width 12.7 % (12.1-15.1); White Blood Count 4.2 10^3/uL (4.0-10.0)
[2021-01-26 11:26] LABS: Alanine Aminotransferase 9 U/L (0-41); Albumin Level 3.8 g/dL (3.5-5.2); Alkaline Phosphatase 504 IU/L (40-130); Anion Gap 16.6 (5-19); Aspartate Amino Transferase 20 U/L (0-40); Blood Urea Nitrogen 24 mg/dL (8-23); Calcium 8.8 mg/dL (8.5-10.5); Carbon Dioxide 25 mmol/L (22-29); Chloride 105 mmol/L (98-107); Globulin 2.9 g/dL (1.3-4.6); Glucose 104 mg/dL (65-115); Osmolality Calculated 298 mOsm/kg (285-295); Potassium 4.6 mmol/L (3.5-5.1); Sodium 142 mmol/L (136-145); Total Bilirubin 0.4 mg/dL (0.15-1.2); Total Protein 6.7 g/dL (6.6-8.7)
--- NOTE | 2021-01-26 13:24 | ONC FU_ITS ---
Dr. Sifuentes Patient Follow-Up Note Patient: Howie Hoffman Unit #: [id number]: 1935 Dicatated By: Bert Sifuentes M.D.Date of Visit:Jan 26, 2021 Onc Med Follow-up/Prog Note Chief Complaint: Lymphoma. History of Present Illness: This is an 85 year-old man with grade 3 follicular lymphoma, stage IIIB, high FLIPI score. In October of 2012 he developed occasional swelling of the right leg. An ultrasound of the leg showed no evidence of DVT, but he was noted to have large inguinal adenopathy measuring up to 3.5 cm. On 12/24/2012 excisional right inguinal lymph node biopsy showed grade 3 follicular lymphoma with immunohistochemistry positive for CD20, BCL-2, BCL-6, CD10 and negative for CD23 and ALK. Flow cytometry was negative for CD5. His Ki-67 was 30-50%. Postoperatively he had a complications with healing, requiring further surgical debridement on 01/21/2013. He had a high FLIPI score given his age, stage, and more than 4 station involvement. He was first seen by Dr. Lin on 01/21/2013. Bone marrow biopsy on 01/27/13 showed no involvement with lymphoma. Staging PET/CT on 01/29/13 showed diffuse adenopathy up to 2.5 cm with a maximum SUV of 9.2 involving bilateral axilla, mediastinum, abdomen, and inguinal stations. He had significant retroperitoneal adenopathy raising the aorta anteriorly. Hepatitis B serology was negative. MUGA scan on 01/28/2013 showed EF 62%. Pre-treatment LDH was 204 U/L. Definitive chemotherapy with 6 cycles of R- CHOP regimen was given 02/02/13- 05/18/13. His treatment was complicated with grade 4 neutropenia without fevers. He had a poor wound healing with the right groin cellulitis. CT of the chest, abdomen, and pelvis after 3 cycles of R-CHOP showed positive response to therapy with decrease in adenopathy in all stations. He had unchanged right lower lobe small subpleural nodule. His restaging PET/CT on 06/04/2013 after 6 cycles showed a complete response. Maintenance rituximab as per PRIMA study began on 07/15/13. CT chest, abdomen, and pelvis on 06/30/2014 was without significant adenopathy. He received cycle 12 of rituximab therapy on 03/28/2015, completing 2 years of maintenance treatment. He was then followed on observation/expectant management. His medical history is also significant for tubular adenoma of the colon which was removed endoscopically in 2005. He had treatment for superficial bladder cancer in 2012. He underwent TURBT for recurrent superficial bladder cancer in March 2020. His only other medical illness is GERD. He has a history of smoking 1/2 pack of cigarettes daily. He quit smoking in 2002. He had a Pneumovax in 2013 and Prevnar in 2014. INTERIM HISTORY: I had seen him for a scheduled visit on 07/09/2018. He had recently undergone dental surgery, and he appeared to have palpable digastric lymph nodes bilaterally. He had further evaluation with PET/CT on 07/18/2018. It showed a minimally hypermetabolic soft tissue lesion in the superficial right parotid gland measuring 2.5 x 1.3 cm, SUV 2.4. 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 There were no other areas of abnormal uptake. With those findings he continued on expectant management for the lymphoma. On his surveillance cystoscopy with Dr. Johnson on 12/08/2020 the right lateral bladder wall looked abnormal. The appearance was more consistent with an intramural type of involvement. Biopsy was recommended, and was scheduled to have inpatient cystoscopy. In the meantime, he developed multiple complaints including abdominal pain and constipation along with anorexia/weight loss and fatigue. His CT scans of the chest, abdomen, and pelvis on 12/14/2020 showed interval development of bilateral hydroureteronephrosis with more significant enhancement and involvement of the left urological system. There is diffuse asymmetric bladder wall thickening which was greatest on the right and suspicious for bladder cancer. Subcentimeter lymph nodes and fat stranding at the level of the kidneys was noted to extend to around the aorta. There were new pulmonary nodules in the right middle lobe measuring 13 mm and in the lingula measuring 3 mm. The appearance favored postinflammatory changes, but follow-up was recommended. On 12/22/2020 he underwent cystoscopy with bilateral retrograde ureteropyelogram's, left ureteroscopy with dilatation of ureteral stricture, placement of ureteral stents bilaterally, and TURBT of a large bladder tumor involving the right lateral wall. Pathology showed poorly differentiated papillary urothelial carcinoma with infiltration of the muscularis propria and deep tissue. On 01/12/2021 he underwent repeat cystoscopy with bilateral ureteroscopy and bilateral ureteral stent exchange. He is seen for a follow-up visit. He has tentatively been scheduled to see Dr. Jhony Santoyo in [place] on the of this month to discuss further management of the bladder cancer. He continues to have limited activity, but he is able to do some light work. ECOG score is 1. His appetite comes and goes. He says his weight is up a couple of pounds. He does not have fever or night sweats. He says he has been urinating constantly. He is not having dysuria or hematuria. He has no shortness of breath, cough, or chest pain. He has occasionally had a little nausea, and he does have some pain in the lower abdominal area. Bowel function has been adequate. He complains that his hands are stiff and numb, that seems to be associated with carpal tunnel. He has no other joint or bone pain. He does not complain of headache or dizziness, and he has no other focal neurologic symptoms. Medications: [employer] Fish Oil 2 (1000 mg) Capsule Oral daily, Glucosamine 2 (500 mg) Tablet Oral daily, Linzess (72 mcg) Capsule Oral daily, Multivitamins 1 Capsule Oral daily, Omeprazole 1 (20 mg) Capsule Delayed Release Oral daily Allergies: PCN Vital Signs: Performed on Jan 26, 2021 09:57 Height - 70.00 in Weight - 168.6 lbs (HIGH) BSA - 1.94 sq.m BMI - 24.19 Temperature - 97.8 F (LOW) Pulse - 89 /min Respiration - 17 /min BP - 171/83 mm(hg) (HIGH) O2 Sat - 97 % Pain - 0 Physical Examination: Constitutional - He appears somewhat weak generally, Eyes - Sclerae nonicteric. Conjunctivae clear, ENMT - There are no lesions noted in the oral cavity, Hematologic/Lymphatic - No cervical, clavicular, or axillary adenopathy, Respiratory - Lungs are clear with good air movement bilaterally, Cardiovascular - Heart rhythm is regular. There is a II/ systolic murmur at the base. There is no gallop or rub noted, Abdomen - Soft. Liver and spleen are not enlarged. There is no abdominal mass or ascites noted and there is no inguinal adenopathy, Extremities - No edema, Neurologic - No focal neurologic deficits noted. Problem List: 1. Grade 3 follicular lymphoma, stage IIIB. He had high FLIPI score at initial diagnosis in December 2012. He has been in remission following treatment with R-CHOP chemotherapy and maintenance rituximab for 2 years. 2. GERD. 3. History of superficial bladder cancer. 4. History of tubular adenoma of the colon, status post endoscopic resection in 2005. He had negative surveillance colonoscopy on 02/01/2019. 5. 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 Problems Addressed with this Encounter and Plan: 1. Patient with history of superficial bladder cancer. His treatment included TURBT in March 2020 followed by intravesical BCG. He now has biopsy-proven poorly differentiated urothelial carcinoma involving the right bladder wall, muscle invasive. He has associated hydronephrosis, and he underwent TURBT and placement of ureteral stents bilaterally on . He continues now to have somewhat marginal performance status, and his laboratory studies from 01/12/2021 did show significant decline in his renal function with creatinine increasing to 2.0 mg/dL compared to 0.8 mg/dL in August 2019. Given those findings, I am going to repeat a CBC and CMP today. I am also going to go and schedule him for a staging PET/CT, as his symptoms and CT findings suggest that he may have advanced disease. 2. He also has grade 3 follicular lymphoma, stage IIIB. He had high FLIPI score at initial diagnosis in December 2012. He had complete response to treatment with 6 cycles of R-CHOP chemotherapy, delivered from 01/11/2013 - 05/18/2013. He was then given maintenance rituximab for 2 years, completed on 03/28/2015. He was followed on expectant management following completion of maintenance rituximab in March 2015. During followup he had developed nodule at the angle of the jaw on the right side. He had previously been evaluated by Dr. Brenner, and it appeared to most likely represent a benign salivary gland tumor. Restaging PET/CT on 07/28/2018 showed a minimally hypermetabolic soft tissue lesion in the superficial right parotid gland measuring 2.5 x 1.3 cm, SUV eight 2.4. This was felt to be consistent with benign salivary gland tumor, but a solitary nidus of lymphoma was not excluded. Given those findings, he has continued expectant management, thus far with no documented recurrence/progression of the lymphoma. Signed By: Bert Sifuentes M.D. <<Signature on File>>
== END 2021-01-26 09:33 | disposition home or self-care (01) ==
LOC: ONCMED 09:35
PROVIDERS: PCP Internal Medicine; Visit Provider Internal Medicine Medical Oncology
DX: Z08 Encounter for follow-up examination after completed treatment for malignant neoplasm (principal); Z85.72 Personal history of non-Hodgkin lymphomas; K21.9 Gastro-esophageal reflux disease without esophagitis; Z85.038 Personal history of other malignant neoplasm of large intestine; Z85.51 Personal history of malignant neoplasm of bladder; Z92.21 Personal history of antineoplastic chemotherapy; Z92.3 Personal history of irradiation; Z79.899 Other long term (current) drug therapy
CPT/HCPCS: 36415; 80053; 85025; 99214

== ENCOUNTER 2021-02-22 06:24 | Day surgery (SDC) | payer MEDICARE, SELFPAY ==
[2021-02-21 16:39] VITALS: BMI 23.3
[2021-02-22] VITALS (7 sets, daily range): BP systolic 118–170; BP diastolic 6–87; PULSE 66–86; RESP 16–18; TEMP 36.2–37.2; O2SAT 93–100
--- NOTE | 2021-02-22 | SCC_ITS ---
Procedure Done: Port-A-Cath placement with intraoperative fluoroscopy interpretation. 2.1 seconds of fluoroscopic guidance, for a cumulative dose of 0.73 mGy, was provided to Dr. Washington by the radiology department. C-arm images of the chest were saved for the patient's permanent record. LAQUITA
[2021-02-22] MEDS: sodium chloride 0.9% 1,000 ML 30 ML IV (06:50)
--- NOTE | 2021-02-22 07:05 | ANES.PREANE2 ---
Pre-Anesthetic Assessment Pre-Anesthetic Assessment: Height/Weight: Height 1.78 m Weight 73.936 kg Temp Pulse Resp BP Pulse Ox 97.8 F 83 18 170/87 97 02/22/21 06:44 02/22/21 06:44 02/22/21 06:44 02/22/21 06:44 02/22/21 06:44 Preop Diagnosis: Muscle invasive bladder cancer with bilateral ureteral obstruction Proposed Procedure: Operation Date: 02/22/21 08:00 Proposed Procedures p Portacath Placement 28032 C67.9(Not Applicable) - Kamaljit Washington MD Familial anesthetic complications: None Was Beta Drew taken within 24 hours: N/A Was Clonidine taken within 24 hours: N/A Last intake: Intake Last Liquid Date 02/21/21 Last Liquid Time 23:00 Last Solid Date 02/21/21 Last Solid Time 17:00 Social: Social History: No alcohol and No tobacco Exam: Pre-Anes Outpt Exam: alert, oriented x 3, clear to auscultation bilaterally and regular rate & rhythm Airway: Cervical ROM: WNL MP: 3 Dentition: False : Comments: bladder cancer GI: GI: GERD Anesthetic Plan: ASA status: 3 Anesthesia: MAC Risk of > 500 ml blood loss (7ml/kg in children): No PFSH Anesthesia PFSH: Medical History (Updated 02/19/21 @ 12:38 by Fariba Spangler DO) Bilateral ureteral obstruction Bladder cancer Carpal tunnel syndrome on right Chronic left hip pain H/O cancer of gall bladder History of nonmelanoma skin cancer Lumbar back pain with radiculopathy affecting lower extremity NHL (non-Hodgkin's lymphoma) Other male erectile dysfunction Recurrent malignant neoplasm of bladder Surgical History S/P colonoscopy 02/01/2019 S/P hernia repair Status post surgical removal and fulguration of bladder neoplasm Family History Father , age 53 Cancer lung cancer Mother Diabetes Heart disease Social History Smoking and tobacco status: former smoker Alcohol intake: current Alcohol intake frequency: few times a month Household members: spouse Housing: House Marital status: Current occupational status: retired History of recent travel: No Data Anesthesia Cardiac Studies: No Data to Display
--- NOTE | 2021-02-22 07:09 | W.PM.OPSUD ---
Surgery/Procedure H&P Update DATE OF PROCEDURE: February 22, 2021 DATE H&P PERFORMED: 02/20/21 H&P UPDATE INFORMATION: No changes to prior documentation PREOP DIAGNOSIS: Muscle invasive bladder cancer. PLANNED PROCEDURE: Operation Date: 02/22/21 08:00 Proposed Procedures p Portacath Placement 95036 C67.9(Not Applicable) - Kamaljit Washington MD
--- NOTE | 2021-02-22 09:02 | SC_ITS ---
WS: [id number] C-ARM RADIOGRAPHS CHEST; 2 IMAGES HISTORY: port a cath COMPARISON: None available. Intraoperative imaging during Port-A-Cath placement. Port-A-Cath enters the LEFT subclavian vein. The tip terminates in the mid SVC. Termination of the catheter is not visualized and may be oriented ant erior posterior and not directed inferior towards the RIGHT atrium. This can be reevaluated on a foll ow-up chest radiograph. IMPRESSION: 1. Intraoperative imaging during LEFT subclavian Port-A-Cath placement. 2. Tip of the catheter appears slightly truncated and may be oriented anteroposterior and not inferi hyacinth towards the atrium. This can be evaluated on a follow-up chest radiograph.
[2021-02-22] MEDS: heparin,porcine 1,000 unit/mL INJ 1 mL 2000 UNIT INJECTION (09:12)
--- NOTE | 2021-02-22 09:14 | PM.OP ---
Operative Report Date of procedure: February 22, 2021 Pre-op Diagnosis: Muscle invasive bladder cancer. Post-op diagnosis: same Procedure Done: Port-A-Cath placement with intraoperative fluoroscopy interpretation. Pathology: none sent Surgeon: Kamaljit Washington Anesthesia: MAC Estimated blood loss (mL): 5 Complications: None. Condition: stable Disposition: same day Procedure: The patient was brought to the Operating Room and was placed in a supine position on the operating room table. A monitored anesthetic was induced. The shoulders were extended by means of a posterior shoulder roll. The anterior surface of the chest and neck were prepped and draped in a sterile fashion. 1% lidocaine was used to anesthetize a small area underneath the left clavicle. The subclavian vein was accessed with a needle and syringe as evidenced by the return of dark nonpulsatile blood. The J-wire was passed down the needle and the needle was removed. The C-arm was positioned and showed the wire extending down the vena cava. A site just inferiorly on the chest wall was anesthetized using a combination of 1% lidocaine and 0.5% bupivacaine with 1:200,000 parts of epinephrine. A transverse incision was made and an inferior pocket was created in the subcutaneous layer using cautery in preparation for port placement. The Port-A-Cath tubing was passed from the incision through the subcutaneous layer to the exit point of the J-wire. The tubing was attached to the port and was cut to an appropriate length. The introducer and sheath were passed over the J-wire, and the introducer and J-wire were removed. The Port-A-Cath tubing was passed down the sheath, which was torn away. The C-arm was positioned and showed good placement of the Port-A-Cath tubing tip in the superior vena cava. The port aspirated easily and flushed well with hep flush solution. The port was sewn in place with some interrupted sutures of 3-0 PDS. The transverse incision was closed at the dermis using a single inverted suture of 3-0 Vicryl and the skin was approximated using a running subcuticular suture of 4-0 Vicryl. The small incision under the clavicle at the previous insertion site of the J wire was closed using a single inverted suture of 4-0 Vicryl. Benzoin and Steri-Strips were placed over the incisions and a sterile bandage followed. The patient was taken to the recovery area in stable condition postoperatively. INTRAOPERATIVE FLUOROSCOPY interpretation: FINDINGS: Intraoperative fluoroscopic images of a Port-A-Cath placement were reviewed. An initial image reveals a J-wire entering the left subclavian vein and extending down the vena cava. Subsequent images reveal a Port-A-Cath on that side of the chest with its tubing tip slightly curled but in good location in the superior vena cava. No obvious pneumothorax is identified.
== END 2021-02-22 10:17 | disposition home or self-care (01) ==
PROVIDERS: PCP Internal Medicine; Visit Provider Surgery
PROC: (CPT 36561; principal; 2021-02-22 08:00)
DX: C67.9 Malignant neoplasm of bladder, unspecified (principal); K21.9 Gastro-esophageal reflux disease without esophagitis; Z87.891 Personal history of nicotine dependence; M19.90 Unspecified osteoarthritis, unspecified site
CPT/HCPCS: 36561; 77001; 96365; C1788; J0690; J1644; J2250; J2704; J3010; J3490; J7030

== ENCOUNTER 2021-03-05 13:24 | Outpatient (CLI) | payer MEDICARE, SELFPAY ==
[2021-03-05 15:14] LABS: Alanine Aminotransferase 7 U/L (0-41); Albumin Level 3.8 g/dL (3.5-5.2); Alkaline Phosphatase 423 IU/L (40-130); Anion Gap 16.4 (5-19); Aspartate Amino Transferase 19 U/L (0-40); Blood Urea Nitrogen 31 mg/dL (8-23); Calcium 8.6 mg/dL (8.5-10.5); Carbon Dioxide 24 mmol/L (22-29); Chloride 104 mmol/L (98-107); Globulin 2.6 g/dL (1.3-4.6); Glucose 84 mg/dL (65-115); Osmolality Calculated 296 mOsm/kg (285-295); Potassium 4.4 mmol/L (3.5-5.1); Sodium 140 mmol/L (136-145); Total Bilirubin 0.3 mg/dL (0.15-1.2); Total Protein 6.4 g/dL (6.6-8.7)
[2021-03-05 15:18] LABS: Basophils % 0.6 %; Eosinophils % 0.8 %; Hematocrit 24.7 % (42.0-52.0); Lymphocytes # 1.5 10^3/uL (0.8-4.8); Lymphocytes % 31.6 %; Mean Corpuscular HGB Conc 32.4 g/dL (30.0-36.0); Mean Corpuscular Hemoglobin 31.4 pg (28.0-34.0); Mean Corpuscular Volume 96.9 fl (80-94); Mean Platelet Volume 10.3 fL (7.4-10.4); Monocytes # 0.7 10^3/uL (0.2-0.9); Neutrophils # 2.25 10^3/uL (1.8-7.7); Neutrophils % 47.1 %; Nucleated Red Blood Cells # 0.2 /100WBC; Nucleated Red Blood Cells % 3.8 %; Platelet Count 62 10^3/cmm (130-400); Red Blood Count 2.55 10^6/uL (4.1-5.3); Red Cell Distribution Width 15.1 % (12.1-15.1); White Blood Count 4.8 10^3/uL (4.0-10.0)
[2021-03-05 16:41] LABS: Slide Review Slide Review Perform
== END 2021-03-05 13:25 | disposition home or self-care (01) ==
PROVIDERS: PCP Internal Medicine; Visit Provider Internal Medicine Medical Oncology
DX: C82.35 Follicular lymphoma grade IIIa, lymph nodes of inguinal region and lower limb (principal)
CPT/HCPCS: 36591; 80053; 85025

== ENCOUNTER 2021-03-06 06:36 | Outpatient (CLI) | payer MEDICARE, SELFPAY ==
[2021-03-06] MEDS: sodium chloride 0.9% 1,000 ML 999 ML IV (09:00)
[2021-03-06 16:52] LABS: LAB Peripheral Smear Sent for Review
--- NOTE | 2021-03-07 06:47 | ONC FU_ITS ---
Dr. Sifuentes Patient Follow-Up Note Patient: Howie Hoffman Unit #: [id number]: [id number] Dicatated By: Bert Sifuentes M.D.Date of Visit:Mar 06, 2021 Onc Med Follow-up/Prog Note Chief Complaint: Lymphoma/bladder cancer. History of Present Illness: This is an 85 year-old man with history of grade 3 follicular lymphoma, stage IIIB, high FLIPI score. In December 2020 he was found to have muscle invasive bladder cancer. In October of 2012 he developed occasional swelling of the right leg. An ultrasound of the leg showed no evidence of DVT, but he was noted to have large inguinal adenopathy measuring up to 3.5 cm. On 12/24/2012 excisional right inguinal lymph node biopsy showed grade 3 follicular lymphoma with immunohistochemistry positive for CD20, BCL-2, BCL-6, CD10 and negative for CD23 and ALK. Flow cytometry was negative for CD5. His Ki-67 was 30-50%. Postoperatively he had a complications with healing, requiring further surgical debridement on 01/21/2013. He had a high FLIPI score given his age, stage, and more than 4 station involvement. He was first seen by Dr. Lin on 01/21/2013. Bone marrow biopsy on 01/27/13 showed no involvement with lymphoma. Staging PET/CT on 01/29/13 showed diffuse adenopathy up to 2.5 cm with a maximum SUV of 9.2 involving bilateral axilla, mediastinum, abdomen, and inguinal stations. He had significant retroperitoneal adenopathy raising the aorta anteriorly. Hepatitis B serology was negative. MUGA scan on 01/28/2013 showed EF 62%. Pre-treatment LDH was 204 U/L. Definitive chemotherapy with 6 cycles of R- CHOP regimen was given 02/02/13- 05/18/13. His treatment was complicated with grade 4 neutropenia without fevers. He had a poor wound healing with the right groin cellulitis. CT of the chest, abdomen, and pelvis after 3 cycles of R-CHOP showed positive response to therapy with decrease in adenopathy in all stations. He had unchanged right lower lobe small subpleural nodule. His restaging PET/CT on 06/04/2013 after 6 cycles showed a complete response. Maintenance rituximab as per PRIMA study began on 07/15/13. CT chest, abdomen, and pelvis on 06/30/2014 was without significant adenopathy. He received cycle 12 of rituximab therapy on 03/28/2015, completing 2 years of maintenance treatment. He was then followed on observation/expectant management. His medical history is also significant for tubular adenoma of the colon which was removed endoscopically in 2005. He had treatment for superficial bladder cancer in 2012. He underwent TURBT for recurrent superficial bladder cancer in March 2020. His only other medical illness is GERD. He has a history of smoking 1/2 pack of cigarettes daily. He quit smoking in 2002. He had a Pneumovax in 2013 and Prevnar in 2014. INTERIM HISTORY: I had seen him for a scheduled visit on 07/09/2018. He had recently undergone dental surgery, and he appeared to have palpable digastric lymph nodes bilaterally. He had further evaluation with PET/CT on 07/18/2018. It showed a minimally hypermetabolic soft tissue lesion in the superficial right parotid gland measuring 2.5 x 1.3 cm, SUV 2.4. 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 There were no other areas of abnormal uptake. With those findings he continued on expectant management for the lymphoma. On his surveillance cystoscopy with Dr. Johnson on 12/08/2020 the right lateral bladder wall looked abnormal. The appearance was more consistent with an intramural type of involvement. Biopsy was recommended, and he was scheduled to have inpatient cystoscopy. In the meantime, he developed multiple complaints including abdominal pain and constipation along with anorexia/weight loss and fatigue. His CT scans of the chest, abdomen, and pelvis on 12/14/2020 showed interval development of bilateral hydroureteronephrosis with more significant enhancement and involvement of the left urological system. There is diffuse asymmetric bladder wall thickening which was greatest on the right and suspicious for bladder cancer. Subcentimeter lymph nodes and fat stranding at the level of the kidneys was noted to extend to around the aorta. There were new pulmonary nodules in the right middle lobe measuring 13 mm and in the lingula measuring 3 mm. The appearance favored postinflammatory changes, but follow-up was recommended. On 12/22/2020 he underwent cystoscopy with bilateral retrograde ureteropyelogram's, left ureteroscopy with dilatation of ureteral stricture, placement of ureteral stents bilaterally, and TURBT of a large bladder tumor involving the right lateral wall. Pathology showed poorly differentiated papillary urothelial carcinoma with infiltration of the muscularis propria and deep tissue. On 01/12/2021 he underwent repeat cystoscopy with bilateral ureteroscopy and bilateral ureteral stent exchange. I had then seen him for a follow-up visit on 01/26/2021. His laboratory studies at that time showed slight improvement in the renal function with BUN 24 and creatinine 1.8 mg/dL. The alkaline phosphatase was found to be significantly elevated at 504/130 IU/L. A subsequent bone scan, though, showed no evidence of metastatic disease. He was then seen by Dr. Jhony Santoyo at the [facility] on 02/07/2021, and he was recommended to proceed with neoadjuvant chemotherapy followed by cystectomy. Further staging with PET/CT on 02/10/2021 showed reactive appearing pelvic lymph nodes and postsurgical pelvic edema, reactive left neck and upper abdominal lymph nodes, and a small right pleural effusion. There was again no evidence of metastatic disease. He then underwent placement of Port-A-Cath venous access device in preparation for neoadjuvant dose dense MVAC chemotherapy. His baseline echocardiogram showed normal LV function with an estimated ejection fraction at 48%. He is seen for a follow-up visit. He has not been feeling good generally. There has been continued decline in his activity tolerance. He feels tired and worn out, but he is ambulatory and able to take care of himself. His ECOG score is 2. His appetite comes and goes. His weight is stable. He has no fever or night sweats. He has not had sore mouth or throat. He does not complain of shortness of breath, cough, or chest pain. He occasionally has nausea. His bowels alternate between constipation and diarrhea. His urination is constant and over the weekend he had some blood in his urine. He recently developed some pain in his right knee. He has no other joint or bone pain. He does not complain of headache or dizziness. He has some numbness in his right hand associated with carpal tunnel. He has no other focal neurologic symptoms. Medications: Glucosamine 2 (500 mg) Tablet Oral daily, Multivitamins 1 Capsule Oral daily, Omeprazole 1 (20 mg) Capsule Delayed Release Oral daily Allergies: PCN Vital Signs: Performed on Mar 06, 2021 08:26 Height - 70.00 in Weight - 167.8 lbs (LOW) BSA - 1.94 sq.m BMI - 24.08 Temperature - 97.6 F (LOW) Pulse - 94 /min Respiration - 18 /min BP - 177/79 mm(hg) (HIGH) O2 Sat - 99 % Pain - 4 Fatigue - 7 Physical Examination: Constitutional - He appears somewhat weak generally, Eyes - Sclerae nonicteric. Conjunctivae clear, ENMT - There are no lesions noted in the oral cavity, Hematologic/Lymphatic - No cervical, clavicular, or axillary adenopathy, Respiratory - Lungs are clear with good air movement bilaterally, Cardiovascular - Heart rhythm is regular. There is a II/ systolic murmur at the base. There is no gallop or rub noted, Abdomen - Soft. There is some tenderness across the lower abdomen. Liver and spleen are not enlarged. There is no abdominal mass or ascites noted and there is no inguinal adenopathy, Extremities - No edema, Neurologic - No focal neurologic deficits noted. Lab/Imaging: Problem List: 1. 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 2. History of superficial bladder cancer treated in March 2020 with TURBT followed by intravesical BCG. 3. History of grade 3 follicular lymphoma, stage IIIB. He had high FLIPI score at initial diagnosis in December 2012. He has been in remission following treatment with R-CHOP chemotherapy and maintenance rituximab for 2 years. 4. GERD. 5. History of tubular adenoma of the colon, status post endoscopic resection in 2005. He had negative surveillance colonoscopy on 02/01/2019. 6. 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 Problems Addressed with this Encounter and Plan: 1. Patient with history of superficial bladder cancer. His treatment included TURBT in March 2020 followed by intravesical BCG. 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 He had associated hydronephrosis for which underwent TURBT and placement of ureteral stents bilaterally on . As of his follow-up visit in January 2021 there had been a decline in his renal function and he was found to have a significantly elevated alkaline phosphatase. Bone scan and subsequent PET/CT, though, showed no evidence of metastatic disease. In the meantime, he was also seen by Dr. Jhony Santoyo at the [facility], and he was recommended to proceed with neoadjuvant chemotherapy followed by cystectomy. He was seen today with plan to proceed with his first cycle of dose dense MVAC chemotherapy. However, he has continued to show further decline in performance status, and he has now had further decline in his renal function as well as development of significant anemia and thrombocytopenia. On review of his blood smear, there are occasional nucleated red cells and occasional immature granulocytic forms, I think the probability is very high that there is metastatic involvement in the bone marrow. Given these changes, I am assuming at this point that his treatment is going to be palliative, and based on his blood counts and renal function it does appear that he is not going to be a suitable candidate for MVAC chemotherapy. Ideally, he should undergo bone marrow aspiration/biopsy, but I think the earliest there would be able to get that scheduled would be next week, and I am very reluctant to cause any further delay in initiating his treatment. As such, he will be given the option to begin a trial of therapy with carboplatin/gemcitabine with the potential to transition to maintenance immunotherapy. Overall, though, it does appear that his prognosis is going to be very poor. 2. He also has grade 3 follicular lymphoma, stage IIIB. He had high FLIPI score at initial diagnosis in December 2012. He had complete response to treatment with 6 cycles of R-CHOP chemotherapy, delivered from 01/11/2013 - 05/18/2013. He was then given maintenance rituximab for 2 years, completed on 03/28/2015. He was followed on expectant management following completion of maintenance rituximab in March 2015. During followup he had developed nodule at the angle of the jaw on the right side. He had previously been evaluated by Dr. Brenner, and it appeared to most likely represent a benign salivary gland tumor. Restaging PET/CT on 07/28/2018 showed a minimally hypermetabolic soft tissue lesion in the superficial right parotid gland measuring 2.5 x 1.3 cm, SUV eight 2.4. This was felt to be consistent with benign salivary gland tumor, but a solitary nidus of lymphoma was not excluded. Given those findings, he has continued expectant management, thus far with no documented recurrence/progression of the lymphoma. Signed By: Bert Sifuentes M.D. <<Signature on File>>
== END 2021-03-06 06:37 | disposition home or self-care (01) ==
PROVIDERS: PCP Internal Medicine; Visit Provider Internal Medicine Medical Oncology
DX: Z08 Encounter for follow-up examination after completed treatment for malignant neoplasm (principal); Z85.51 Personal history of malignant neoplasm of bladder; Z85.72 Personal history of non-Hodgkin lymphomas; K21.9 Gastro-esophageal reflux disease without esophagitis; D11.9 Benign neoplasm of major salivary gland, unspecified; D12.6 Benign neoplasm of colon, unspecified; Z79.899 Other long term (current) drug therapy; Z92.21 Personal history of antineoplastic chemotherapy; Z92.3 Personal history of irradiation
CPT/HCPCS: 96360; 99215; J7030

== ENCOUNTER 2021-03-07 06:39 | Outpatient (CLI) | payer MEDICARE, SELFPAY ==
[2021-03-07] VITALS (10 sets, daily range): BP systolic 137–160; BP diastolic 74–84; PULSE 77–89; RESP 18; TEMP 36.9–37.3; O2SAT 93–97
[2021-03-07 08:55] LABS: Basophils % 0.8 %; Eosinophils # 0.1 10^3/uL (0.0-0.8); Eosinophils % 1.3 %; Hematocrit 24.5 % (42.0-52.0); Hemoglobin 7.9 g/dL (11.7-16.6); Lymphocytes % 24.7 %; Mean Corpuscular HGB Conc 32.2 g/dL (30.0-36.0); Mean Corpuscular Hemoglobin 31.9 pg (28.0-34.0); Mean Corpuscular Volume 98.8 fl (80-94); Mean Platelet Volume 10.4 fL (7.4-10.4); Monocytes # 0.5 10^3/uL (0.2-0.9); Monocytes % 13.2 %; Neutrophils # 2.11 10^3/uL (1.8-7.7); Neutrophils % 53.6 %; Nucleated Red Blood Cells # 0.2 /100WBC; Nucleated Red Blood Cells % 5.6 %; Platelet Count 52 10^3/cmm (130-400); Red Blood Count 2.48 10^6/uL (4.1-5.3); Red Cell Distribution Width 15.3 % (12.1-15.1); White Blood Count 3.9 10^3/uL (4.0-10.0)
[2021-03-07 09:22] LABS: Slide Review Slide Review Perform
[2021-03-07 09:41] LABS: Alanine Aminotransferase 7 U/L (0-41); Albumin Level 3.7 g/dL (3.5-5.2); Alkaline Phosphatase 428 IU/L (40-130); Anion Gap 19.2 (5-19); Aspartate Amino Transferase 18 U/L (0-40); Blood Urea Nitrogen 35 mg/dL (8-23); Calcium 8.8 mg/dL (8.5-10.5); Carbon Dioxide 21 mmol/L (22-29); Chloride 105 mmol/L (98-107); Glucose 109 mg/dL (65-115); Osmolality Calculated 301 mOsm/kg (285-295); Potassium 4.2 mmol/L (3.5-5.1); Sodium 141 mmol/L (136-145); Total Bilirubin 0.4 mg/dL (0.15-1.2); Total Protein 6.7 g/dL (6.6-8.7)
[2021-03-07] MEDS: sodium chloride 0.9% 250 ML 999 ML IV (11:40)
[2021-03-07] MEDS: acetaminophen 325 mg Tablet 650 MG PO (11:40)
[2021-03-07] MEDS: diphenhydrAMINE 25 mg Capsule PO (11:40)
[2021-03-07] MEDS: FUROsemide 10 mg/mL SDV 2mL 20 MG IV (13:44)
[2021-03-07] MEDS: pantoprazole 40 mg SDV IV (16:00)
[2021-03-19 08:44] LABS: Miscellaneous Test See Scanned Lab Rpt
== END 2021-03-07 06:40 | disposition home or self-care (01) ==
PROVIDERS: PCP Internal Medicine; Visit Provider Internal Medicine Medical Oncology
DX: C67.9 Malignant neoplasm of bladder, unspecified (principal); Z85.51 Personal history of malignant neoplasm of bladder; Z85.038 Personal history of other malignant neoplasm of large intestine; Z85.72 Personal history of non-Hodgkin lymphomas
CPT/HCPCS: 36415; 36430; 80053; 85025; 86850; 86900; 86920; 88342; C9113; J1940; J7050; P9016

== ENCOUNTER 2021-03-27 12:29 | Outpatient (CLI) | payer MEDICARE, SELFPAY ==
[2021-03-27 13:51] LABS: Hematocrit 28.1 % (42.0-52.0); Hemoglobin 9.2 g/dL (11.7-16.6); Mean Corpuscular HGB Conc 32.7 g/dL (30.0-36.0); Mean Corpuscular Hemoglobin 30.4 pg (28.0-34.0); Mean Corpuscular Volume 92.7 fl (80-94); Mean Platelet Volume 10.7 fL (7.4-10.4); Platelet Count 79 10^3/cmm (130-400); Red Blood Count 3.03 10^6/uL (4.1-5.3); Red Cell Distribution Width 17.1 % (12.1-15.1); White Blood Count 3.9 10^3/uL (4.0-10.0)
[2021-03-27 14:00] LABS: Alanine Aminotransferase 10 U/L (0-41); Albumin Level 3.7 g/dL (3.5-5.2); Alkaline Phosphatase 463 IU/L (40-130); Anion Gap 17.4 (5-19); Aspartate Amino Transferase 20 U/L (0-40); Blood Urea Nitrogen 32 mg/dL (8-23); Calcium 8.5 mg/dL (8.5-10.5); Carbon Dioxide 22 mmol/L (22-29); Chloride 101 mmol/L (98-107); Globulin 2.7 g/dL (1.3-4.6); Glucose 96 mg/dL (65-115); Osmolality Calculated 289 mOsm/kg (285-295); Potassium 4.4 mmol/L (3.5-5.1); Sodium 136 mmol/L (136-145); Total Bilirubin 0.4 mg/dL (0.15-1.2); Total Protein 6.4 g/dL (6.6-8.7)
[2021-03-27 14:41] LABS: Absolute Segmented Neutrophil 2.1 10/cmm (1.6-7.1); Segmented Neutrophils 54 %; Total Cells Counted 100 (0-100)
[2021-03-27 14:42] LABS: Absolute Neutrophil 2.3 10^3/cmm (1.4-6.5); Band Neutrophils Absolute 0.2 10^3/cmm (0.0-1.2); Eosinophils 0 %; Lymphocytes 29 %; Lymphocytes Absolute 1.2 10^3/cmm (1.2-3.4); Monocytes Absolute 0.2 10^3/cmm (0.1-0.6); Platelet Estimate Decreased (Normal)
--- NOTE | 2021-04-01 22:58 | ONC FU_ITS ---
[facility] Patient Note Patient: Howie Hoffman Unit #: [id number]: 1935 Dictated By: Nhi ChengDate of Visit: Mar 27, 2021 Onc MED Follow-Up/Prog Note Chief Complaint: Lymphoma/bladder cancer. History of Present Illness: Mr Hoffman is an 86 year-old man with history of grade 3 follicular lymphoma, stage IIIB, high FLIPI score. In December 2020 he was found to have muscle invasive bladder cancer. In October of 2012 he developed occasional swelling of the right leg. An ultrasound of the leg showed no evidence of DVT, but he was noted to have large inguinal adenopathy measuring up to 3.5 cm. On 12/24/2012 excisional right inguinal lymph node biopsy showed grade 3 follicular lymphoma with immunohistochemistry positive for CD20, BCL-2, BCL-6, CD10 and negative for CD23 and ALK. Flow cytometry was negative for CD5. His Ki-67 was 30-50%. Postoperatively he had a complications with healing, requiring further surgical debridement on 01/21/2013. He had a high FLIPI score given his age, stage, and more than 4 station involvement. He was first seen by Dr. Lin on 01/21/2013. Bone marrow biopsy on 01/27/13 showed no involvement with lymphoma. Staging PET/CT on 01/29/13 showed diffuse adenopathy up to 2.5 cm with a maximum SUV of 9.2 involving bilateral axilla, mediastinum, abdomen, and inguinal stations. He had significant retroperitoneal adenopathy raising the aorta anteriorly. Hepatitis B serology was negative. MUGA scan on 01/28/2013 showed EF 62%. Pre-treatment LDH was 204 U/L. Definitive chemotherapy with 6 cycles of R- CHOP regimen was given 02/02/13- 05/18/13. His treatment was complicated with grade 4 neutropenia without fevers. He had a poor wound healing with the right groin cellulitis. CT of the chest, abdomen, and pelvis after 3 cycles of R-CHOP showed positive response to therapy with decrease in adenopathy in all stations. He had unchanged right lower lobe small subpleural nodule. His restaging PET/CT on 06/04/2013 after 6 cycles showed a complete response. Maintenance rituximab as per PRIMA study began on 07/15/13. CT chest, abdomen, and pelvis on 06/30/2014 was without significant adenopathy. He received cycle 12 of rituximab therapy on 03/28/2015, completing 2 years of maintenance treatment. He was then followed on observation/expectant management. His medical history is also significant for tubular adenoma of the colon which was removed endoscopically in 2005. He had treatment for superficial bladder cancer in 2012. He underwent TURBT for recurrent superficial bladder cancer in March 2020. His only other medical illness is GERD. He has a history of smoking 1/2 pack of cigarettes daily. He quit smoking in 2002. He had a Pneumovax in 2013 and Prevnar in 2014. INTERIM HISTORY: Dr Sifuentes had seen him for a scheduled visit on 07/09/2018. He had recently undergone dental surgery, and he appeared to have palpable digastric lymph nodes bilaterally. He had further evaluation with PET/CT on 07/18/2018. It showed a minimally hypermetabolic soft tissue lesion in the superficial right parotid gland measuring 2.5 x 1.3 cm, SUV 2.4. 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 There were no other areas of abnormal uptake. With those findings he continued on expectant management for the lymphoma. On his surveillance cystoscopy with Dr. Johnson on 12/08/2020 the right lateral bladder wall looked abnormal. The appearance was more consistent with an intramural type of involvement. Biopsy was recommended, and he was scheduled to have inpatient cystoscopy. In the meantime, he developed multiple complaints including abdominal pain and constipation along with anorexia/weight loss and fatigue. His CT scans of the chest, abdomen, and pelvis on 12/14/2020 showed interval development of bilateral hydroureteronephrosis with more significant enhancement and involvement of the left urological system. There is diffuse asymmetric bladder wall thickening which was greatest on the right and suspicious for bladder cancer. Subcentimeter lymph nodes and fat stranding at the level of the kidneys was noted to extend to around the aorta. There were new pulmonary nodules in the right middle lobe measuring 13 mm and in the lingula measuring 3 mm. The appearance favored postinflammatory changes, but follow-up was recommended. On 12/22/2020 he underwent cystoscopy with bilateral retrograde ureteropyelogram's, left ureteroscopy with dilatation of ureteral stricture, placement of ureteral stents bilaterally, and TURBT of a large bladder tumor involving the right lateral wall. Pathology showed poorly differentiated papillary urothelial carcinoma with infiltration of the muscularis propria and deep tissue. On 01/12/2021 he underwent repeat cystoscopy with bilateral ureteroscopy and bilateral ureteral stent exchange. Dr Sifuentes had then seen him for a follow-up visit on 01/26/2021. His laboratory studies at that time showed slight improvement in the renal function with BUN 24 and creatinine 1.8 mg/dL. The alkaline phosphatase was found to be significantly elevated at 504/130 IU/L. A subsequent bone scan, though, showed no evidence of metastatic disease. He was then seen by Dr. Jhony Santoyo at the [facility] on 02/07/2021, and he was recommended to proceed with neoadjuvant chemotherapy followed by cystectomy. Further staging with PET/CT on 02/10/2021 showed reactive appearing pelvic lymph nodes and postsurgical pelvic edema, reactive left neck and upper abdominal lymph nodes, and a small right pleural effusion. There was again no evidence of metastatic disease. He then underwent placement of Port-A-Cath venous access device in preparation for neoadjuvant dose dense MVAC chemotherapy. His baseline echocardiogram showed normal LV function with an estimated ejection fraction at 48%. He was seen for a follow-up visit on March 06, [address] Sifuentes for initiation of neoadjuvant chemo with MVAC to be followed by cystectomy. He had not been feeling good generally. There had been continued decline in his activity tolerance. His ECOG score was 2. He had had a LEFT subclavian venous access device placed by Dr Washington on 02/22/2021 and his baseline echocardiogram (reported by Dr Johnson's note fromn 03/20/2021) showed normal LV function with an EF of 48% . I do not have a copy of that echo in his chart nor can I find a report in [facility] records. His MVAC treatment was not started. Dr. Sifuentes had recommended that due to his declining performance status and renal function, as well as development of significant anemia and thrombocytopenia, Mr Hoffman undergo a bone marrow aspiration/biopsy as there was concern for metastatic involvement in the bone marrow given his blood counts. Mr. Hoffman was seen by Dr. Johnson at [facility] on 03/20/2021. The recommendation from that visit was first-line chemotherapy with carboplatin and gemcitabine followed by immunotherapy maintenance with cisplatin and eligibility. Alternatively immunotherapy as first-line could also be offered depending on PD-L1 status. It was also recommended that he pursue bone marrow biopsy/aspiration to evaluate for follicular lymphoma involvement. A bone marrow aspiration biopsy was not performed in Mr. Hoffman was returned to our care. He is here today for follow-up and discussion of his visit with Dr. Johnson. His last hemoglobin on 03/07/2021 was reported at 7.9. He did receive 2 units of packed red blood cells on 03/07/2021. He presents today feeling really bad . He states he is weak and washed out. He is short of breath. He is pale. His appetite is poor and he just feels bad in general. He is in no acute distress but states his breathing has become more labored and he is more short of breath. He denies any actual new pain. His hematuria comes and goes but for the most part has been better . He states has been very little. He denies any nausea or vomiting. He denies any fever or chills. He denies any orthopnea. He denies any constipation. He is complaining of persistent diarrhea since his port placement. He states it slows down some with the Imodium but has never gone completely away. His ECOG today is 2. Past Medical History: Gastroesophageal reflux disease Hx of bladder ca in 2012 Hx of colon ca (tubular adenoma) in 2005 Past Surgical History: Hernia repair - right inguinal SHOULDER SURGERY Port-a-cath placement in 2020 - by Dr. Washington Covid vaccine #2 in 2020 Covid vaccine #1 in 2020 Prevnar 13 in 2014 - Left deltoid/lc Flu vaccine in 2014 Flu vaccine in 2013 Pneumonia vaccine in 2013 Ct c/a/p in [address] in 2012 MUGA SCAN in 2013 Portacath in 2013 - left l-sub...Dr Washington Bone marrow aspiration in 2012 Bone marrow biopsy in 2012 Right inguinal lymph node biopsy-Dr Washington in 2012 Colonoscopy in 2011 TURBT in 2008 Pt states he had teeth extraction on 2018 Allergies: PCN Medications: Glucosamine 2 (500 mg) Tablet Oral daily Multivitamins 1 Capsule Oral daily Omeprazole 1 (20 mg) Capsule Delayed Release Oral daily Family History: Mr. Hoffman's mother at age 78: medical history includes congestive heart failure and diabetes. Mr. Hoffman's father at age 53: cancer history consists of Lung cancer at age 53. Mr. Hoffman has 2 sisters: 2 unknown. Mr. Hoffman's first sister's medical history includes diabetes. Another sister's cancer history consists of Breast cancer. sister with breast cancer sister with diabetes. Social History: Mr. Hoffman is and he is retired. Mr. Hoffman quit smoking 12 years ago but had smoked 0.5 packs/day for 65 years. He drinks daily. He has indicated exposure to the following products: cigars. Mr. Hoffman reports the following support systems: lives with spouse, significant other, family, or friends, lives in own house, and supportive family/friends willing to assist with needs. His diet consists of regular meals. He indicates his activity level as: regular exercise. pt has no plans to start smoking again. tr. Review Of Symptoms: <See Above> Vital Signs: Performed on Mar 27, 2021 12:43 Height - 70.00 in Weight - 164.2 lbs (LOW) BSA - 1.92 sq.m BMI - 23.56 Temperature - 98.0 F (LOW) Pulse - 100 /min Respiration - 18 /min BP - 156/79 mm(hg) (HIGH) O2 Sat - 97 % Pain - 5 Fatigue - 8,2 - Ambulatory/capable of all self-care, unable to perform any work activities. Up and about more than 50% of waking hours. (ECOG) Physical Examination: Constitutional Alert, oriented, no acute distress. Skin pale, warm and dry. Head Normocephalic; atraumatic. Eyes Conjunctivae and sclerae are clear and without icterus. Pupils are reactive and equal. ENMT Sinuses are nontender. No oral exudates, ulcers, masses, thrush or mucositis. Oropharynx clear. Tongue normal. Neck Supple without masses or thyromegaly. No jugular venous distension. Hematologic/Lymphatic No petechiae or purpura. No tender or palpable lymph nodes in the cervical, supraclavicular, or axillary area. Respiratory Lungs are clear to auscultation without rhonchi or wheezing. Cardiovascular Regular rate and rhythm of heart without murmurs,clicks, gallops or rubs. Chest Chest is symmetric without chest wall deformities. Port a cath insertion site in the left chest wall has healed well and is unremarkable. Back/Spine Non-tender to palpation. Musculoskeletal No tenderness or swelling, normal range of motion without obvious weakness. Integumentary No rashes or lesions. Psychiatric Alert and oriented times three. Coherent speech. Verbalizes understanding of our discussions today. Laboratory:Test performed on Mar 27, 2021 13:30 Sodium 136 mmol/L Potassium 4.4 mmol/L Chloride 101 mmol/L CO2 22 mmol/L Anion Gap 17.4 BUN 32 mg/dL Creatinine 2.6 mg/dL Cr Clearance (Est) 21.8800 mL/min Glucose 96 mg/dL Osmolality - Calculated 289 mOsm/kg Calcium 8.5 mg/dL Protein, Total 6.4 g/dL Albumin 3.7 g/dL Globulin 2.7 g/dL Bilirubin, Total 0.4 mg/dL ALT (SGPT) 10 U/L AST (SGOT) 20 U/L Alkaline Phosphatase 463 IU/L WBC 3.9 10 3/uL Manual Segs % 54 % Manual Bands % 4.0 % RBC 3.03 10 6/uL HGB 9.2 g/dL Manual Lymphs % 29 % Atypical Lymphs % 1.0 % HCT 28.1 % MCV 92.7 fl Total Cells Counted 100 Manual Monos % 4.0 % MCH 30.4 pg Manual Eos % 0 % MCHC 32.7 g/dL Manual Basos % 1.0 % RDW 17.1 % Metamyelocytes % 3.0 % Platelet Count 79 10 3/cmm MPV 10.7 fL Platelet Estimate Decreased Manual Segs Abs 2.1 10/cmm Manual Bands Abs 0.2 10 3/cmm Manual Neutrophils Abs 2.3 10 3/cmm Manual Lymphocytes Abs 1.2 10 3/cmm Manual Monocytes Abs 0.2 10 3/cmm Manual Eosinophils Abs 0.0 10 3/cmm Manual Basophils Abs 0.0 10 3/cmm Anti-D Positive Blood Type OP Antibody Screen (Gel) NEGATIVE Test performed on Mar 07, 2021 08:27 Neutrophils 2.11 10 3/uL Lymphocytes 1.0 10 3/uL Monocytes 0.5 10 3/uL Eosinophils 0.1 10 3/uL Basophils 0.0 10 3/uL Neutrophil % 53.6 % Lymphocyte % 24.7 % Monocyte % 13.2 % Eosinophil % 1.3 % Basophils % 0.8 % NRBC % 5.6 % CBC Slide Review Slide Review Perform SLIDE REVIEW AGREES WITH AUTOMATED RESULTS ST Test performed on Mar 05, 2021 14:14 ABO & Rh Type # 2 OP Test performed on Mar 05, 2021 00:00 Manual Diff DUP/BUNJE Test performed on Dec 15, 2020 09:30 Ua Color Yellow Ua Appearance Clear Ua Glucose Norm Ua Bilirubin Neg Ua Ketones Negative Ua Specific [place] 1.005 Ua Blood Neg Ua pH 7 Ua Protein Neg Ua Nitrites Negative Ua Leukocyte Esterase Negative Test performed on Dec 13, 2020 11:50 LDH (Total) 187 U/L Impression: 1. 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 2. History of superficial bladder cancer treated in March 2020 with TURBT followed by intravesical BCG. 3. History of grade 3 follicular lymphoma, stage IIIB. He had high FLIPI score at initial diagnosis in December 2012. He has been in remission following treatment with R-CHOP chemotherapy and maintenance rituximab for 2 years. 4. GERD. 5. History of tubular adenoma of the colon, status post endoscopic resection in 2005. He had negative surveillance colonoscopy on 02/01/2019. 6. 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 Plan/Problems Addressed at this Visit: 1. Patient with history of superficial bladder cancer. His treatment included TURBT in March 2020 followed by intravesical BCG. 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 He had associated hydronephrosis for which underwent TURBT and placement of ureteral stents bilaterally on . As of his follow-up visit in January 2021 there had been a decline in his renal function and he was found to have a significantly elevated alkaline phosphatase. Bone scan and subsequent PET/CT, though, showed no evidence of metastatic disease. In the meantime, he was also seen by Dr. Jhony Santoyo at the [facility], and he was recommended to proceed with neoadjuvant chemotherapy followed by cystectomy. A. Trial of [facility] chemotherapy remains on hold due to to his development of thrombocytopenia, anemia and poor performance status. B. I have asked that he have a CBC, CMP and type and screen/blood bank hold to reassess his anemia today. He is certainly symptomatic for anemia today. C. We discussed at length the recommendations from Kristopher Ken including initiation of carboplatin gemcitabine however my concern, without seeing his blood counts today and looking at his blood counts from 03/07/2021 is whether he will tolerate this or not due to his blood counts. His performance status is also another concern. His PD-L1 status is negative by PD-L1 IHC 22C3 and IHC 28-8 assays. D. After waiting for his labs return I did discuss them with Mr. Hoffman. His WBC is 3.9, hemoglobin is 9.2 and his platelet count has improved to 79,000. His ANC is 2300. However his creatinine today is 2.6 and it was 2.2 on 03/07/2021. Random glucose is 96 LFTs are normal alk phos is 463, which is alk phos was 504 on 01/26/2021. Surprisingly he does not need transfusion services at this time. E. Mr. Hoffman will return to the clinic tomorrow for further discussion of plan of care with Dr. Sifuentes as Dr. Sifuentes the office today. F. We did discuss that he may need bone marrow aspiration and biopsy but his counts are slowly improving at this time. 2. Persistent diarrhea of unknown etiology. A. I did request a C. difficile on stool if he can bring us a stool sample. 3. He also has grade 3 follicular lymphoma, stage IIIB. He had high FLIPI score at initial diagnosis in December 2012. He had complete response to treatment with 6 cycles of R-CHOP chemotherapy, delivered from 01/11/2013 - 05/18/2013. He was then given maintenance rituximab for 2 years, completed on 03/28/2015. He was followed on expectant management following completion of maintenance rituximab in March 2015. During followup he had developed nodule at the angle of the jaw on the right side. He had previously been evaluated by Dr. Brenner, and it appeared to most likely represent a benign salivary gland tumor. Restaging PET/CT on 07/28/2018 showed a minimally hypermetabolic soft tissue lesion in the superficial right parotid gland measuring 2.5 x 1.3 cm, SUV eight 2.4. This was felt to be consistent with benign salivary gland tumor, but a solitary nidus of lymphoma was not excluded. Given those findings, he has continued expectant management, thus far with no documented recurrence/progression of the lymphoma. 4. Total time spent in review of patient's chart/previous records, [id number] discussion, review of labs, formulation of plan of care and discussion of plan of care with Mr. Hoffman as well as post visit documentation was 50 minutes. Signed By: Nhi Cheng-, AOCNP Bert Sifuentes MD <<Signature on File>>
== END 2021-03-27 12:30 | disposition home or self-care (01) ==
PROVIDERS: PCP Internal Medicine; Visit Provider Nurse Practitioner
DX: C82.35 Follicular lymphoma grade IIIa, lymph nodes of inguinal region and lower limb (principal); K21.9 Gastro-esophageal reflux disease without esophagitis; Z79.899 Other long term (current) drug therapy
CPT/HCPCS: 36591; 80053; 85007; 85025; 86850; 86900; 99215

== ENCOUNTER 2021-03-28 05:55 | Outpatient (CLI) | payer MEDICARE, SELFPAY ==
[2021-03-28] MEDS: palonosetron 0.25 mg/5 mL SDV IV (15:05)
[2021-03-28] MEDS: fosaprepitant 150 MG in sodium chloride 0.9% 150 ML 300 MG IV (15:21)
[2021-03-28] MEDS: sodium chloride 0.9% 250 ML 75 ML IV (16:24)
--- NOTE | 2021-03-31 15:46 | ONC FU_ITS ---
Dr. Sifuentes Patient Follow-Up Note Patient: Howie Hoffman Unit #: [id number]: [id number] Dicatated By: Bert Sifuentes M.D.Date of Visit:Mar 28, 2021 Onc Med Follow-up/Prog Note Chief Complaint: Lymphoma/bladder cancer. History of Present Illness: This is an 86 year-old man with history of grade 3 follicular lymphoma, stage IIIB, high FLIPI score. In December 2020 he was found to have muscle invasive bladder cancer. In October of 2012 he developed occasional swelling of the right leg. An ultrasound of the leg showed no evidence of DVT, but he was noted to have large inguinal adenopathy measuring up to 3.5 cm. On 12/24/2012 excisional right inguinal lymph node biopsy showed grade 3 follicular lymphoma with immunohistochemistry positive for CD20, BCL-2, BCL-6, CD10 and negative for CD23 and ALK. Flow cytometry was negative for CD5. His Ki-67 was 30-50%. Postoperatively he had a complications with healing, requiring further surgical debridement on 01/21/2013. He had a high FLIPI score given his age, stage, and more than 4 station involvement. He was first seen by Dr. Lin on 01/21/2013. Bone marrow biopsy on 01/27/13 showed no involvement with lymphoma. Staging PET/CT on 01/29/13 showed diffuse adenopathy up to 2.5 cm with a maximum SUV of 9.2 involving bilateral axilla, mediastinum, abdomen, and inguinal stations. He had significant retroperitoneal adenopathy raising the aorta anteriorly. Hepatitis B serology was negative. MUGA scan on 01/28/2013 showed EF 62%. Pre-treatment LDH was 204 U/L. Definitive chemotherapy with 6 cycles of R- CHOP regimen was given 02/02/13- 05/18/13. His treatment was complicated with grade 4 neutropenia without fevers. He had a poor wound healing with the right groin cellulitis. CT of the chest, abdomen, and pelvis after 3 cycles of R-CHOP showed positive response to therapy with decrease in adenopathy in all stations. He had unchanged right lower lobe small subpleural nodule. His restaging PET/CT on 06/04/2013 after 6 cycles showed a complete response. Maintenance rituximab as per PRIMA study began on 07/15/13. CT chest, abdomen, and pelvis on 06/30/2014 was without significant adenopathy. He received cycle 12 of rituximab therapy on 03/28/2015, completing 2 years of maintenance treatment. He was then followed on observation/expectant management. His medical history is also significant for tubular adenoma of the colon which was removed endoscopically in 2005. He had treatment for superficial bladder cancer in 2012. He underwent TURBT for recurrent superficial bladder cancer in March 2020. His only other medical illness is GERD. He has a history of smoking 1/2 pack of cigarettes daily. He quit smoking in 2002. He had a Pneumovax in 2013 and Prevnar in 2014. INTERIM HISTORY: I had seen him for a scheduled visit on 07/09/2018. He had recently undergone dental surgery, and he appeared to have palpable digastric lymph nodes bilaterally. He had further evaluation with PET/CT on 07/18/2018. It showed a minimally hypermetabolic soft tissue lesion in the superficial right parotid gland measuring 2.5 x 1.3 cm, SUV 2.4. 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 There were no other areas of abnormal uptake. With those findings he continued on expectant management for the lymphoma. On his surveillance cystoscopy with Dr. Johnson on 12/08/2020 the right lateral bladder wall looked abnormal. The appearance was more consistent with an intramural type of involvement. Biopsy was recommended, and he was scheduled to have inpatient cystoscopy. In the meantime, he developed multiple complaints including abdominal pain and constipation along with anorexia/weight loss and fatigue. His CT scans of the chest, abdomen, and pelvis on 12/14/2020 showed interval development of bilateral hydroureteronephrosis with more significant enhancement and involvement of the left urological system. There is diffuse asymmetric bladder wall thickening which was greatest on the right and suspicious for bladder cancer. Subcentimeter lymph nodes and fat stranding at the level of the kidneys was noted to extend to around the aorta. There were new pulmonary nodules in the right middle lobe measuring 13 mm and in the lingula measuring 3 mm. The appearance favored postinflammatory changes, but follow-up was recommended. On 12/22/2020 he underwent cystoscopy with bilateral retrograde ureteropyelogram's, left ureteroscopy with dilatation of ureteral stricture, placement of ureteral stents bilaterally, and TURBT of a large bladder tumor involving the right lateral wall. Pathology showed poorly differentiated papillary urothelial carcinoma with infiltration of the muscularis propria and deep tissue. On 01/12/2021 he underwent repeat cystoscopy with bilateral ureteroscopy and bilateral ureteral stent exchange. I had then seen him for a follow-up visit on 01/26/2021. His laboratory studies at that time showed slight improvement in the renal function with BUN 24 and creatinine 1.8 mg/dL. The alkaline phosphatase was found to be significantly elevated at 504/130 IU/L. A subsequent bone scan, though, showed no evidence of metastatic disease. He was then seen by Dr. Jhony Santoyo at the [facility] on 02/07/2021, and he was recommended to proceed with neoadjuvant chemotherapy followed by cystectomy. Further staging with PET/CT on 02/10/2021 showed reactive appearing pelvic lymph nodes and postsurgical pelvic edema, reactive left neck and upper abdominal lymph nodes, and a small right pleural effusion. There was again no evidence of metastatic disease. He then underwent placement of Port-A-Cath venous access device in preparation for neoadjuvant dose dense MVAC chemotherapy. His baseline echocardiogram showed normal LV function with an estimated ejection fraction at 48%. He was seen for follow-up on 03/06/2021. By that time he had become significantly anemic, and his platelet count had declined to 62,000. There was decline in his renal function with creatinine 2.5 mg/dL. He was given IV hydration, and his chemotherapy was deferred. I attempted to arrange for admission to [facility] for bone marrow aspiration/biopsy. He was instead seen there for a second opinion evaluation on 03/20/2021. He was recommended to proceed with 1st-line chemotherapy with carboplatin/gemcitabine with potential for subsequent maintenance immunotherapy. Also mentioned was possible 1st line immunotherapy with PD-L1 positive disease. His tumor, though, was negative for PD-L1 expression by PD-L1 IHC 22C3 and by PD-L1 IHC 28-8 assays. He returns now to initiate chemotherapy. He is very weak generally, and he also has been having hematuria. Medications: Glucosamine 2 (500 mg) Tablet Oral daily, Multivitamins 1 Capsule Oral daily, Omeprazole 1 (20 mg) Capsule Delayed Release Oral daily Allergies: PCN Vital Signs: Performed on Mar 28, 2021 13:21 Height - 70.00 in Weight - 165.6 lbs (HIGH) BSA - 1.93 sq.m BMI - 23.76 Temperature - 97.8 F (LOW) Pulse - 103 /min (HIGH) Respiration - 18 /min BP - 156/73 mm(hg) (HIGH) O2 Sat - 98 % Pain - 4 Fatigue - 8 Lab/Imaging: Test performed on Mar 27, 2021 13:30 Sodium 136 mmol/L Potassium 4.4 mmol/L Chloride 101 mmol/L CO2 22 mmol/L Anion Gap 17.4 BUN 32 mg/dL Creatinine 2.6 mg/dL Cr Clearance (Est) 21.8800 mL/min Glucose 96 mg/dL Osmolality - Calculated 289 mOsm/kg Calcium 8.5 mg/dL Protein, Total 6.4 g/dL Albumin 3.7 g/dL Globulin 2.7 g/dL Bilirubin, Total 0.4 mg/dL ALT (SGPT) 10 U/L AST (SGOT) 20 U/L Alkaline Phosphatase 463 IU/L WBC 3.9 10 3/uL Manual Segs % 54 % Manual Bands % 4.0 % RBC 3.03 10 6/uL HGB 9.2 g/dL Manual Lymphs % 29 % Atypical Lymphs % 1.0 % HCT 28.1 % MCV 92.7 fl Total Cells Counted 100 Manual Monos % 4.0 % MCH 30.4 pg Manual Eos % 0 % MCHC 32.7 g/dL Manual Basos % 1.0 % RDW 17.1 % Metamyelocytes % 3.0 % Platelet Count 79 10 3/cmm MPV 10.7 fL Platelet Estimate Decreased Manual Segs Abs 2.1 10/cmm Manual Bands Abs 0.2 10 3/cmm Manual Neutrophils Abs 2.3 10 3/cmm Manual Lymphocytes Abs 1.2 10 3/cmm Manual Monocytes Abs 0.2 10 3/cmm Manual Eosinophils Abs 0.0 10 3/cmm Manual Basophils Abs 0.0 10 3/cmm Problem List: 1. 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 2. History of superficial bladder cancer treated in March 2020 with TURBT followed by intravesical BCG. 3. History of grade 3 follicular lymphoma, stage IIIB. He had high FLIPI score at initial diagnosis in December 2012. He has been in remission following treatment with R-CHOP chemotherapy and maintenance rituximab for 2 years. 4. GERD. 5. History of tubular adenoma of the colon, status post endoscopic resection in 2005. He had negative surveillance colonoscopy on 02/01/2019. 6. 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 Problems Addressed with this Encounter and Plan: 1. Patient with history of superficial bladder cancer. His treatment included TURBT in March 2020 followed by intravesical BCG. 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 He had associated hydronephrosis for which underwent TURBT and placement of ureteral stents bilaterally on . As of his follow-up visit in January 2021 there had been a decline in his renal function and he was found to have a significantly elevated alkaline phosphatase. Bone scan and subsequent PET/CT, though, showed no evidence of metastatic disease. In the meantime, he was also seen by Dr. Jhony Santoyo at the [facility], and he was recommended to proceed with neoadjuvant chemotherapy followed by cystectomy. He was then seen with intent to begin dose dense MVAC chemotherapy. However, he had continued to show further decline in performance status, and he there was further decline in his renal function as well as development of significant anemia and thrombocytopenia. On review of his blood smear, there were occasional nucleated red cells and occasional immature granulocytic forms with probability of metastatic involvement in the bone marrow. He was then seen for a second opinion evaluation at [facility], and he was recommended to begin chemotherapy with carboplatin/gemcitabine with the potential to transition to maintenance immunotherapy. He will now begin cycle 1 of carboplatin/gemcitabine. His overall prognosis appears to be poor. 2. He also has grade 3 follicular lymphoma, stage IIIB. He had high FLIPI score at initial diagnosis in December 2012. He had complete response to treatment with 6 cycles of R-CHOP chemotherapy, delivered from 01/11/2013 - 05/18/2013. He was then given maintenance rituximab for 2 years, completed on 03/28/2015. Thus far there has been no documented recurrence/progression of the lymphoma. Signed By: Bert Sifuentes M.D. <<Signature on File>>
== END 2021-03-28 05:56 | disposition home or self-care (01) ==
LOC: ONCMED 05:55
PROVIDERS: PCP Internal Medicine; Visit Provider Internal Medicine Medical Oncology
DX: Z51.11 Encounter for antineoplastic chemotherapy (principal)
CPT/HCPCS: 36591; 80053; 85007; 85025; 86850; 86900; 96367; 96413; 96417; 99215; J1100; J1453; J2469; J7050; J9045; J9201

== ENCOUNTER 2021-04-09 06:40 | Outpatient (RCR) | payer MEDICARE, SELFPAY ==
[2021-04-04] VITALS (10 sets, daily range): BP systolic 130–150; BP diastolic 63–82; PULSE 80–91; RESP 18; TEMP 36.5–37.2; O2SAT 95–99
[2021-04-04 09:46] LABS: Hematocrit 24.1 % (42.0-52.0); Hemoglobin 8.2 g/dL (11.7-16.6); Lymphocytes # 0.9 10^3/uL (0.8-4.8); Lymphocytes % 48.5 %; Mean Corpuscular Hemoglobin 30.3 pg (28.0-34.0); Mean Corpuscular Volume 88.9 fl (80-94); Monocytes # 0.1 10^3/uL (0.2-0.9); Monocytes % 4.1 %; Neutrophils % 45.3 %; Nucleated Red Blood Cells % 0 %; Platelet Count 40 10^3/cmm (130-400); Red Blood Count 2.71 10^6/uL (4.1-5.3); Red Cell Distribution Width 16.6 % (12.1-15.1); White Blood Count 1.9 10^3/uL (4.0-10.0)
[2021-04-04 10:07] LABS: Neutrophils # 0.88 10^3/uL (1.8-7.7)
[2021-04-04 10:23] LABS: Alanine Aminotransferase 27 U/L (0-41); Albumin Level 3.7 g/dL (3.5-5.2); Alkaline Phosphatase 483 IU/L (40-130); Anion Gap 15.7 (5-19); Aspartate Amino Transferase 31 U/L (0-40); Blood Urea Nitrogen 35 mg/dL (8-23); Calcium 8.1 mg/dL (8.5-10.5); Carbon Dioxide 23 mmol/L (22-29); Chloride 101 mmol/L (98-107); Globulin 2.4 g/dL (1.3-4.6); Glucose 93 mg/dL (65-115); Osmolality Calculated 290 mOsm/kg (285-295); Potassium 3.7 mmol/L (3.5-5.1); Sodium 136 mmol/L (136-145); Total Bilirubin 0.3 mg/dL (0.15-1.2); Total Protein 6.1 g/dL (6.6-8.7)
[2021-04-04] MEDS: diphenhydrAMINE 25 mg Capsule PO (11:30)
[2021-04-04] MEDS: acetaminophen 325 mg Tablet 650 MG PO (11:30)
[2021-04-04] MEDS: sodium chloride 0.9% 250 ML 999 ML IV (11:30)
[2021-04-04] MEDS: FUROsemide 10 mg/mL SDV 2mL 20 MG IV (13:15)
[2021-04-09 16:52] LABS: Basophils % 0.3 %; Hematocrit 29.3 % (42.0-52.0); Lymphocytes # 0.9 10^3/uL (0.8-4.8); Mean Corpuscular HGB Conc 34.1 g/dL (30.0-36.0); Mean Corpuscular Hemoglobin 30.3 pg (28.0-34.0); Mean Corpuscular Volume 88.8 fl (80-94); Monocytes # 0.5 10^3/uL (0.2-0.9); Monocytes % 15.8 %; Neutrophils % 49.6 %; Nucleated Red Blood Cells % 0 %; Red Cell Distribution Width 16.8 % (12.1-15.1)
[2021-04-09 17:43] LABS: Slide Review Slide Review Perform
[2021-04-09 17:46] LABS: Platelet Count 25 10^3/cmm (130-400)
== END 2021-04-10 23:59 | disposition home or self-care (01) ==
LOC: ONCMED 06:40
PROVIDERS: PCP Internal Medicine; Visit Provider Internal Medicine Medical Oncology
DX: C67.2 Malignant neoplasm of lateral wall of bladder (principal); C79.51 Secondary malignant neoplasm of bone; Z79.899 Other long term (current) drug therapy
CPT/HCPCS: 36430; 36591; 80053; 85025; 86850; 86900; 86920; 96372; J1940; J7050; P9040; Q5101

== ENCOUNTER 2021-05-09 06:30 | Outpatient (RCR) | payer MEDICARE, SELFPAY ==
[2021-04-12 09:18] LABS: Basophils % 0.5 %; Eosinophils % 0.3 %; Hematocrit 28.8 % (42.0-52.0); Hemoglobin 9.3 g/dL (11.7-16.6); Lymphocytes # 1.2 10^3/uL (0.8-4.8); Mean Corpuscular HGB Conc 32.3 g/dL (30.0-36.0); Mean Corpuscular Hemoglobin 29.3 pg (28.0-34.0); Mean Corpuscular Volume 90.9 fl (80-94); Mean Platelet Volume 11.9 fL (7.4-10.4); Monocytes # 0.5 10^3/uL (0.2-0.9); Monocytes % 13.3 %; Neutrophils # 1.79 10^3/uL (1.8-7.7); Neutrophils % 47.6 %; Nucleated Red Blood Cells % 0 %; Platelet Count 35 10^3/cmm (130-400); Red Blood Count 3.17 10^6/uL (4.1-5.3); Red Cell Distribution Width 16.5 % (12.1-15.1); White Blood Count 3.8 10^3/uL (4.0-10.0)
[2021-04-18 08:58] LABS: Basophils % 0.5 %; Eosinophils % 0.5 %; Hemoglobin 9.3 g/dL (11.7-16.6); Lymphocytes # 1.2 10^3/uL (0.8-4.8); Lymphocytes % 28.4 %; Mean Corpuscular HGB Conc 33.2 g/dL (30.0-36.0); Mean Corpuscular Volume 90.3 fl (80-94); Mean Platelet Volume 9.8 fL (7.4-10.4); Monocytes # 0.6 10^3/uL (0.2-0.9); Monocytes % 12.6 %; Neutrophils # 2.44 10^3/uL (1.8-7.7); Neutrophils % 55.9 %; Nucleated Red Blood Cells % 0.7 %; Platelet Count 66 10^3/cmm (130-400); Red Cell Distribution Width 17.2 % (12.1-15.1); White Blood Count 4.4 10^3/uL (4.0-10.0)
[2021-04-18 09:15] LABS: Alanine Aminotransferase 14 U/L (0-41); Albumin Level 3.8 g/dL (3.5-5.2); Alkaline Phosphatase 614 IU/L (40-130); Anion Gap 18.7 (5-19); Aspartate Amino Transferase 22 U/L (0-40); Blood Urea Nitrogen 25 mg/dL (8-23); Calcium 8.3 mg/dL (8.5-10.5); Carbon Dioxide 19 mmol/L (22-29); Chloride 104 mmol/L (98-107); Globulin 2.1 g/dL (1.3-4.6); Glucose 84 mg/dL (65-115); Osmolality Calculated 290 mOsm/kg (285-295); Potassium 3.7 mmol/L (3.5-5.1); Sodium 138 mmol/L (136-145); Total Bilirubin 0.3 mg/dL (0.15-1.2); Total Protein 5.9 g/dL (6.6-8.7)
[2021-04-18] MEDS: sodium chloride 0.9% 250 ML 75 ML IV (11:00)
[2021-04-18] MEDS: palonosetron 0.25 mg/5 mL SDV IV (11:00)
[2021-04-18] MEDS: fosaprepitant 150 MG in sodium chloride 0.9% 150 ML 300 MG IV (11:16)
--- NOTE | 2021-04-18 16:22 | ONC FU_ITS ---
Dr. Sifuentes Patient Follow-Up Note Patient: Howie Hoffman Unit #: [id number]: 1935 Dicatated By: Bert Sifuentes M.D.Date of Visit:Apr 18, 2021 Onc Med Follow-up/Prog Note Chief Complaint: Lymphoma/bladder cancer. History of Present Illness: This is an 86 year-old man with history of grade 3 follicular lymphoma, stage IIIB, high FLIPI score. In December 2020 he was found to have muscle invasive bladder cancer. In October of 2012 he developed occasional swelling of the right leg. An ultrasound of the leg showed no evidence of DVT, but he was noted to have large inguinal adenopathy measuring up to 3.5 cm. On 12/24/2012 excisional right inguinal lymph node biopsy showed grade 3 follicular lymphoma with immunohistochemistry positive for CD20, BCL-2, BCL-6, CD10 and negative for CD23 and ALK. Flow cytometry was negative for CD5. His Ki-67 was 30-50%. Postoperatively he had a complications with healing, requiring further surgical debridement on 01/21/2013. He had a high FLIPI score given his age, stage, and more than 4 station involvement. He was first seen by Dr. Lin on 01/21/2013. Bone marrow biopsy on 01/27/13 showed no involvement with lymphoma. Staging PET/CT on 01/29/13 showed diffuse adenopathy up to 2.5 cm with a maximum SUV of 9.2 involving bilateral axilla, mediastinum, abdomen, and inguinal stations. He had significant retroperitoneal adenopathy raising the aorta anteriorly. Hepatitis B serology was negative. MUGA scan on 01/28/2013 showed EF 62%. Pre-treatment LDH was 204 U/L. Definitive chemotherapy with 6 cycles of R- CHOP regimen was given 02/02/13- 05/18/13. His treatment was complicated with grade 4 neutropenia without fevers. He had a poor wound healing with the right groin cellulitis. CT of the chest, abdomen, and pelvis after 3 cycles of R-CHOP showed positive response to therapy with decrease in adenopathy in all stations. He had unchanged right lower lobe small subpleural nodule. His restaging PET/CT on 06/04/2013 after 6 cycles showed a complete response. Maintenance rituximab as per PRIMA study began on 07/15/13. CT chest, abdomen, and pelvis on 06/30/2014 was without significant adenopathy. He received cycle 12 of rituximab therapy on 03/28/2015, completing 2 years of maintenance treatment. He was then followed on observation/expectant management. His medical history is also significant for tubular adenoma of the colon which was removed endoscopically in 2005. He had treatment for superficial bladder cancer in 2012. He underwent TURBT for recurrent superficial bladder cancer in March 2020. His only other medical illness is GERD. He has a history of smoking 1/2 pack of cigarettes daily. He quit smoking in 2002. He had a Pneumovax in 2013 and Prevnar in 2014. INTERIM HISTORY: I had seen him for a scheduled visit on 07/09/2018. He had recently undergone dental surgery, and he appeared to have palpable digastric lymph nodes bilaterally. He had further evaluation with PET/CT on 07/18/2018. It showed a minimally hypermetabolic soft tissue lesion in the superficial right parotid gland measuring 2.5 x 1.3 cm, SUV 2.4. 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 There were no other areas of abnormal uptake. With those findings he continued on expectant management for the lymphoma. On his surveillance cystoscopy with Dr. Johnson on 12/08/2020 the right lateral bladder wall looked abnormal. The appearance was more consistent with an intramural type of involvement. Biopsy was recommended, and he was scheduled to have inpatient cystoscopy. In the meantime, he developed multiple complaints including abdominal pain and constipation along with anorexia/weight loss and fatigue. His CT scans of the chest, abdomen, and pelvis on 12/14/2020 showed interval development of bilateral hydroureteronephrosis with more significant enhancement and involvement of the left urological system. There is diffuse asymmetric bladder wall thickening which was greatest on the right and suspicious for bladder cancer. Subcentimeter lymph nodes and fat stranding at the level of the kidneys was noted to extend to around the aorta. There were new pulmonary nodules in the right middle lobe measuring 13 mm and in the lingula measuring 3 mm. The appearance favored postinflammatory changes, but follow-up was recommended. On 12/22/2020 he underwent cystoscopy with bilateral retrograde ureteropyelogram's, left ureteroscopy with dilatation of ureteral stricture, placement of ureteral stents bilaterally, and TURBT of a large bladder tumor involving the right lateral wall. Pathology showed poorly differentiated papillary urothelial carcinoma with infiltration of the muscularis propria and deep tissue. On 01/12/2021 he underwent repeat cystoscopy with bilateral ureteroscopy and bilateral ureteral stent exchange. I had then seen him for a follow-up visit on 01/26/2021. His laboratory studies at that time showed slight improvement in the renal function with BUN 24 and creatinine 1.8 mg/dL. The alkaline phosphatase was found to be significantly elevated at 504/130 IU/L. A subsequent bone scan, though, showed no evidence of metastatic disease. He was then seen by Dr. Jhony Santoyo at the [facility] on 02/07/2021, and he was recommended to proceed with neoadjuvant chemotherapy followed by cystectomy. Further staging with PET/CT on 02/10/2021 showed reactive appearing pelvic lymph nodes and postsurgical pelvic edema, reactive left neck and upper abdominal lymph nodes, and a small right pleural effusion. There was again no evidence of metastatic disease. He then underwent placement of Port-A-Cath venous access device in preparation for neoadjuvant dose dense MVAC chemotherapy. His baseline echocardiogram showed normal LV function with an estimated ejection fraction at 48%. He was seen for follow-up on 03/06/2021. By that time he had become significantly anemic, and his platelet count had declined to 62,000. There was decline in his renal function with creatinine 2.5 mg/dL. He was given IV hydration, and his chemotherapy was deferred. I attempted to arrange for admission to [facility] for bone marrow aspiration/biopsy. He was instead seen there for a second opinion evaluation on 03/20/2021. He was recommended to proceed with 1st-line chemotherapy with carboplatin/gemcitabine with potential for subsequent maintenance immunotherapy. Also mentioned was possible 1st line immunotherapy with PD-L1 positive disease. His tumor, though, was negative for PD-L1 expression by PD-L1 IHC 22C3 and by PD-L1 IHC 28-8 assays. On 03/28/2021 he began cycle 1 of chemotherapy with carboplatin/gemcitabine. His baseline CBC showed hemoglobin 9.2 g, white blood cell count 3900 and platelet count 79,000. The manual differential showed 54% segs, 4% bands, 3% metamyelocytes, 29% lymphocytes, 4% monocytes, 1% basophils, and 1% atypical lymphs. Nucleated red cells were not reported. His creatinine then increased to 2.6 mg/dL. He tolerated the treatment without acute toxicity. His day 8 treatment, though, was held due to a decrease in his platelet count to 40,000 and 2 neutropenia, ANC 900. He was given a single dose of G-CSF. His neutrophil count then gradually recovered. His platelet count nadired at 25,000. He is seen now for a follow-up visit. He still feels very weak generally, and he has very limited activity. He is ambulatory and he is able to take care of himself. ECOG score is 2. His appetite is poor. He is having to force himself to eat, and he is losing weight. He does not have fever or night sweats. He has not had sore mouth or throat. He does not complain of cough, and he has not been having shortness of breath or chest pain. He has had no nausea/vomiting. His bowel function, though, is terrible. He has almost constant output of soft stool, but it is difficult for him to pass it. He sometimes takes Imodium to try and slow down the bowel movement, but he then has to take MiraLAX for constipation. He is having significant pain in the rectal area, severe enough that he cannot lie on his left side at night. He has not had any recurrence of hematuria, but he has no control of his bladder function. He is not having any significant joint or bone pain. He does not complain of headache or dizziness. He does have some numbness/tingling in his hands. Medications: Glucosamine 2 (500 mg) Tablet Oral daily, Multivitamins 1 Capsule Oral daily, Omeprazole 1 (20 mg) Capsule Delayed Release Oral daily, predniSONE 1 Tablet (of 10 mg) Oral daily Allergies: PCN Vital Signs: Performed on Apr 18, 2021 11:51 Height - 70.00 in Weight - 160.2 lbs (LOW) BSA - 1.90 sq.m BMI - 22.99 Temperature - 96.5 F (LOW) Pulse - 88 /min Respiration - 18 /min BP - 125/91 mm(hg) O2 Sat - 99 % Pain - 5 Fatigue - 8 Physical Examination: Constitutional - He appears generally weak, Eyes - Sclerae nonicteric. Conjunctivae clear, ENMT - No lesions noted in the oral cavity, Hematologic/Lymphatic - No cervical, clavicular, or axillary adenopathy, Respiratory - Lungs are clear with good air movement bilaterally, Cardiovascular - Heart rhythm is a little irregular. There is a II/ systolic murmur at the base. There is no gallop or rub noted, Abdomen - Mildly distended. There is some tenderness in the lower abdomen. Liver and spleen are not enlarged. There is no abdominal mass or ascites noted and there is no inguinal adenopathy, Genitalia/Groin/Buttock (M) - On visual exam there were no abnormalities noted in the perianal area, but on digital exam the area was very indurated, firm, and tender, and I was not able to get the examining finger into the anal orifice, Extremities - No edema, Neurologic - No focal neurologic deficits noted. Lab/Imaging: Test performed on Apr 18, 2021 10:38 Creatinine 1.5 mg/dL Cr Clearance (Est) 37.93 mL/min Test performed on Apr 18, 2021 08:40 Sodium 138 mmol/L Potassium 3.7 mmol/L Chloride 104 mmol/L CO2 19 mmol/L Anion Gap 18.7 BUN 25 mg/dL Glucose 84 mg/dL Osmolality - Calculated 290 mOsm/kg Calcium 8.3 mg/dL Protein, Total 5.9 g/dL Albumin 3.8 g/dL Globulin 2.1 g/dL Bilirubin, Total 0.3 mg/dL ALT (SGPT) 14 U/L AST (SGOT) 22 U/L Alkaline Phosphatase 614 IU/L WBC 4.4 10 3/uL RBC 3.10 10 6/uL HGB 9.3 g/dL HCT 28.0 % MCV 90.3 fl MCH 30.0 pg MCHC 33.2 g/dL RDW 17.2 % Platelet Count 66 10 3/cmm MPV 9.8 fL Neutrophils 2.44 10 3/uL Lymphocytes 1.2 10 3/uL Monocytes 0.6 10 3/uL Eosinophils 0.0 10 3/uL Basophils 0.0 10 3/uL Neutrophil % 55.9 % Lymphocyte % 28.4 % Monocyte % 12.6 % Eosinophil % 0.5 % Basophils % 0.5 % NRBC % 0.7 % Problem List: 1. 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 2. History of superficial bladder cancer treated in March 2020 with TURBT followed by intravesical BCG. 3. History of grade 3 follicular lymphoma, stage IIIB. He had high FLIPI score at initial diagnosis in December 2012. He has been in remission following treatment with R-CHOP chemotherapy and maintenance rituximab for 2 years. 4. GERD. 5. History of tubular adenoma of the colon, status post endoscopic resection in 2005. He had negative surveillance colonoscopy on 02/01/2019. 6. 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 Problems Addressed with this Encounter and Plan: 1. Patient with history of superficial bladder cancer. His treatment included TURBT in March 2020 followed by intravesical BCG. 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 He had associated hydronephrosis for which underwent TURBT and placement of ureteral stents bilaterally on . As of his follow-up visit in January 2021 there had been a decline in his renal function and he was found to have a significantly elevated alkaline phosphatase. Bone scan and subsequent PET/CT, though, showed no evidence of metastatic disease. In the meantime, he was also seen by Dr. Jhony Santoyo at the [facility], and he was recommended to proceed with neoadjuvant chemotherapy followed by cystectomy. He was then seen with intent to begin dose dense MVAC chemotherapy. However, he had continued to show further decline in performance status, and there was further decline in his renal function as well as development of significant anemia and thrombocytopenia. On review of his blood smear, there were occasional nucleated red cells and occasional immature granulocytic forms with high probability of metastatic involvement in the bone marrow. He was then seen for a second opinion evaluation at [facility], and he was recommended to begin chemotherapy with carboplatin/gemcitabine with the potential to transition to maintenance immunotherapy. He returned to begin cycle 1 of carboplatin/gemcitabine on 03/28/2021. At that point he had very poor performance status and his prognosis also appeared to be very poor. He tolerated the initial chemotherapy infusions without acute toxicity. During follow-up his blood counts declined, as expected. His day 8 treatment was held. He then had gradual but uneventful recovery. He continues now to feel generally weak and he has limited activity. He is having significant issues with both bowel and bladder function. Based on his exam, I suspect that he has tumor infiltration into the rectal area, and all along I have felt that his disease was far more advanced than what we were seeing on his imaging studies. However, given the limited treatment options available, I will proceed now with cycle 2 of carboplatin/gemcitabine. Dosages will remain the same. Blood counts will be monitored weekly. He will be transfused as needed. I am anticipating that he will again have treatment on day 1 only. I am going to go ahead and schedule him for restaging CT abdomen/pelvis. Depending on the results, I may want to consider transitioning him to a palliative chemoradiation treatment. In the meantime, he will be given a prescription for dronabinol 5 mg twice daily for his anorexia/weight loss, as he has had no symptomatic benefit with prednisone. 2. He also has grade 3 follicular lymphoma, stage IIIB. He had high FLIPI score at initial diagnosis in December 2012. He had complete response to treatment with 6 cycles of R-CHOP chemotherapy, delivered from 01/11/2013 - 05/18/2013. He was then given maintenance rituximab for 2 years, completed on 03/28/2015. Thus far there has been no documented recurrence/progression of the lymphoma. Signed By: Bert Sifuentes M.D. <<Signature on File>>
[2021-04-24 11:33] LABS: Hematocrit 25.2 % (42.0-52.0); Hemoglobin 8.4 g/dL (11.7-16.6); Lymphocytes # 0.5 10^3/uL (0.8-4.8); Lymphocytes % 53.5 %; Mean Corpuscular HGB Conc 33.3 g/dL (30.0-36.0); Mean Corpuscular Hemoglobin 30.1 pg (28.0-34.0); Mean Corpuscular Volume 90.3 fl (80-94); Mean Platelet Volume 10.5 fL (7.4-10.4); Neutrophils % 42.5 %; Nucleated Red Blood Cells % 0 %; Platelet Count 46 10^3/cmm (130-400); Red Blood Count 2.79 10^6/uL (4.1-5.3); Red Cell Distribution Width 17.2 % (12.1-15.1)
[2021-04-24 12:00] LABS: Alanine Aminotransferase 28 U/L (0-41); Albumin Level 3.7 g/dL (3.5-5.2); Alkaline Phosphatase 642 IU/L (40-130); Anion Gap 16.9 (5-19); Aspartate Amino Transferase 33 U/L (0-40); Blood Urea Nitrogen 27 mg/dL (8-23); Carbon Dioxide 21 mmol/L (22-29); Chloride 105 mmol/L (98-107); Glucose 94 mg/dL (65-115); Osmolality Calculated 293 mOsm/kg (285-295); Potassium 3.9 mmol/L (3.5-5.1); Sodium 139 mmol/L (136-145); Total Bilirubin 0.3 mg/dL (0.15-1.2); Total Protein 5.7 g/dL (6.6-8.7)
--- NOTE | 2021-04-24 12:15 | CT_ITS ---
WS: [id number] CT ABDOMEN PELVIS TECHNIQUE: Noncontrast CT of the abdomen and pelvis with coronal and sagittal reformatted images. CLINICAL INFORMATION: BLADDER CANCER COMPARISON: December 14, 2020 DLP: 1570.[address] scans at [facility] use at least one of these dose optimization techniques: automated e xposure control; mA and/or kV adjustment per patient size (includes targeted exams where dose is matc hed to clinical indication); or iterative reconstruction. FINDINGS: Small bilateral pleural effusions right greater than left. Noncontrast liver is normal. Normal noncon trast spleen and pancreas. Adrenal glands are normal. Moderate bilateral hydronephrosis with bilatera l double-J ureteral stents in place. Diffuse bladder wall thickening. Enlarged prostate. Diffuse rectal wall thickening with surrounding induration can be seen with proctitis. Neoplasm is an additional consideration. Sigmoid colon is otherwise normal in appearance. Mild constipation. No sarah dence of high-grade obstruction. Small to moderate esophageal hiatal hernia. Distal esophageal and ga stric wall thickening can be seen with gastritis. Mild induration in the abdominal mesentery is new from the prior PET/CT with subtle nodularity. This is suspicious for peritoneal carcinomatosis considering evidence of progressed bony metastasis. Scatt ered areas of interloop fluid. No drainable ascites. Normal caliber abdominal aorta. Diffuse blastic metastasis throughout the visualized bony structures appears new or significantly pr ogressed compared to the prior studies. This involves the lower thoracic spine, lumbar spine, pelvis and sacrum extending into the bilateral hips and proximal femurs where visualized. Involvement of the posterior spinal elements. Grade 2 anterolisthesis L5 on S1 with bilateral spondylolysis. Suspicious left node or mesenteric nodule in the upper abdominal mesentery measuring 13 mm appears ne w. Suspicious prominent left inguinal lymph node measuring 11 mm appears slightly enlarged compared t o the prior PET/CT. CT/CT abdomen pelvis wo con [id number] IMPRESSION: 1. Diffuse extensive circumferential thickening of the rectum with surrounding induration suspicious for proctitis. Neoplasm is an additional consideration. Rectal thickening is new from the prior studies. 2. Sigmoid colon is otherwise normal in appearance. No evidence of small or la rge bowel obstruction. Mild constipation. 3. Small bilateral pleural effusions right greater than left. 4. Mesenteric induration with slight nodularity appears new from the prior PET /CT and is suspicious for peritoneal carcinomatosis considering progressed bony metastasis. 5. Moderate bilateral hydronephrosis with double-J ureteral stents. 6. Diffuse blastic bone metastasis throughout the visualized bony structures. 7. Moderate esophageal hiatal hernia. 8. Suspicious prominent left inguinal lymph node measuring 11 mm appears sligh tly enlarged compared to the prior PET/CT. Notified Bert Sifuentes MD at 04/24/2021 3:30 PM.
[2021-04-24 12:16] LABS: Neutrophils # 0.43 10^3/uL (1.8-7.7)
[2021-04-24] MEDS: iohexol 300 mg/mL 50 mL Btl PO (14:19)
[2021-04-25] VITALS (10 sets, daily range): BP systolic 118–148; BP diastolic 61–69; PULSE 72–78; RESP 18; TEMP 36.4–37.2; O2SAT 97–99
[2021-04-25] MEDS: sodium chloride 0.9% 250 ML 999 ML IV (09:45)
[2021-04-25] MEDS: acetaminophen 325 mg Tablet 650 MG PO (09:45)
[2021-04-25] MEDS: diphenhydrAMINE 25 mg Capsule PO (09:45)
[2021-04-25] MEDS: FUROsemide 10 mg/mL SDV 2mL 20 MG IV (11:50)
--- NOTE | 2021-04-25 14:45 | N.ONRAD NP_ITS ---
Radiation Oncology Consultation Patient Name: Howie Hoffman Date of : 1935 Date of Service: 04/25/2021 Attending Physician: Tyrell Aleman M.D. Howie Hoffman was seen in consultation this afternoon at the request of Bert Sifuentes M.D. for consideration of palliative radiotherapy for the management of a locally advanced bladder cancer. 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 A surveillance cystoscopy performed in March 2020 identified a 5 cm right lateral bladder wall sessile tumor. A TURBT completed by Hasmukh Johnson M.D. on March 27, 2020 confirmed a high-grade urothelial carcinoma without detrusor muscle resin in the biopsy specimen. Intravesicular mitomycin was administered. The resection performed in May 2020 demonstrated focal urothelial CIS. Induction BCG was prescribed with 6 cycles of intravesicular therapy completing in July 2020. Maintenance BCG was instituted in October with 3 cycles of BCG installation. A cystoscopy with bilateral retrograde ureteropyelograms and TURBT completed on December 22, 2020 revealed mural thickening of the right lateral wall and right ureteral orifice and bilateral ureteral narrowing. Ureteral stents were placed at the time of procedure. The TURBT specimen recognized a poorly differentiated papillary urothelial carcinoma with a PD???L1 expression (CPS greater than 10). A referral to the [facility] Department of Medical Oncology recommended neoadjuvant chemotherapy followed by cystectomy. A PET CT ordered on February 10, 2021 demonstrated reactive appearing left neck, upper abdominal, and pelvic lymphadenopathy. In late February, significant anemia and thrombocytopenia developed. An admission to the [facility] for bone marrow biopsy culminated in a second opinion with the recommendation for carboplatin and gemcitabine and possible maintenance immunotherapy. During a recent follow-up appointment with medical oncology, he reported significant pain in the rectum and stool incontinence. An abdominopelvic CT scan ordered on April 24, 2021 showed diffuse metastatic disease (personally reviewed in [facility]). The patient was evaluated for palliative radiotherapy in the setting of significant rectal pain attributable to his bladder cancer. I discussed with Mr. Hoffman the role for palliative radiotherapy. He would like to evaluate his treatment options preliminary to making a decision. His medical treatment plan has been discussed with Bert Sifuentes M.D. Signed by: Dr. Tyrell Aleman 04/25/2021 2:45:26 PM
[2021-05-01 13:28] LABS: Basophils % 0.4 %; Eosinophils % 0.4 %; Hemoglobin 10.3 g/dL (11.7-16.6); Lymphocytes # 0.8 10^3/uL (0.8-4.8); Mean Corpuscular HGB Conc 33.2 g/dL (30.0-36.0); Mean Corpuscular Hemoglobin 29.2 pg (28.0-34.0); Mean Corpuscular Volume 87.8 fl (80-94); Mean Platelet Volume 11.5 fL (7.4-10.4); Monocytes # 0.4 10^3/uL (0.2-0.9); Monocytes % 14.7 %; Neutrophils # 1.37 10^3/uL (1.8-7.7); Neutrophils % 53.1 %; Nucleated Red Blood Cells % 0 %; Red Blood Count 3.53 10^6/uL (4.1-5.3); Red Cell Distribution Width 16.8 % (12.1-15.1); White Blood Count 2.6 10^3/uL (4.0-10.0)
[2021-05-01 13:49] LABS: Alanine Aminotransferase 18 U/L (0-41); Albumin Level 3.7 g/dL (3.5-5.2); Alkaline Phosphatase 757 IU/L (40-130); Anion Gap 16.8 (5-19); Aspartate Amino Transferase 26 U/L (0-40); Blood Urea Nitrogen 18 mg/dL (8-23); Calcium 8.1 mg/dL (8.5-10.5); Carbon Dioxide 20 mmol/L (22-29); Chloride 105 mmol/L (98-107); Globulin 2.3 g/dL (1.3-4.6); Glucose 101 mg/dL (65-115); Osmolality Calculated 288 mOsm/kg (285-295); Potassium 3.8 mmol/L (3.5-5.1); Sodium 138 mmol/L (136-145); Total Bilirubin 0.3 mg/dL (0.15-1.2)
[2021-05-01 14:06] LABS: Slide Review Slide Review Perform
[2021-05-01 14:08] LABS: Platelet Count 27 10^3/cmm (130-400)
[2021-05-09 08:47] LABS: Basophils % 0.4 %; Eosinophils % 0.7 %; Hematocrit 29.5 % (42.0-52.0); Hemoglobin 9.9 g/dL (11.7-16.6); Lymphocytes # 0.9 10^3/uL (0.8-4.8); Lymphocytes % 33.3 %; Mean Corpuscular HGB Conc 33.6 g/dL (30.0-36.0); Mean Corpuscular Hemoglobin 30.2 pg (28.0-34.0); Mean Corpuscular Volume 89.9 fl (80-94); Monocytes # 0.6 10^3/uL (0.2-0.9); Monocytes % 23.6 %; Neutrophils % 41.3 %; Nucleated Red Blood Cells % 0 %; Platelet Count 74 10^3/cmm (130-400); Red Blood Count 3.28 10^6/uL (4.1-5.3); Red Cell Distribution Width 17.3 % (12.1-15.1); White Blood Count 2.7 10^3/uL (4.0-10.0)
[2021-05-09 09:32] LABS: Alanine Aminotransferase 11 U/L (0-41); Albumin Level 3.8 g/dL (3.5-5.2); Alkaline Phosphatase 845 IU/L (40-130); Anion Gap 14.9 (5-19); Aspartate Amino Transferase 22 U/L (0-40); Blood Urea Nitrogen 18 mg/dL (8-23); Calcium 8.2 mg/dL (8.5-10.5); Carbon Dioxide 22 mmol/L (22-29); Chloride 108 mmol/L (98-107); Globulin 2.5 g/dL (1.3-4.6); Glucose 92 mg/dL (65-115); Osmolality Calculated 294 mOsm/kg (285-295); Potassium 3.9 mmol/L (3.5-5.1); Sodium 141 mmol/L (136-145); Thyroid Stimulating Hormone 5.24 uIU/mL (0.27-4.20); Total Bilirubin 0.3 mg/dL (0.15-1.2); Total Protein 6.3 g/dL (6.6-8.7)
== END 2021-05-11 23:59 | disposition home or self-care (01) ==
LOC: ONCMED 06:30
PROVIDERS: Internal Medicine Medical Oncology; PCP Internal Medicine; Visit Provider Nurse Practitioner Family
DX: Z51.12 Encounter for antineoplastic immunotherapy (principal); Z51.11 Encounter for antineoplastic chemotherapy; C67.3 Malignant neoplasm of anterior wall of bladder; Z85.72 Personal history of non-Hodgkin lymphomas; K21.9 Gastro-esophageal reflux disease without esophagitis; D11.9 Benign neoplasm of major salivary gland, unspecified; Z85.038 Personal history of other malignant neoplasm of large intestine; Z79.899 Other long term (current) drug therapy; Z92.21 Personal history of antineoplastic chemotherapy; Z92.3 Personal history of irradiation
CPT/HCPCS: 36430; 36591; 74176; 80053; 84443; 85025; 86850; 86900; 86920; 96367; 96374; 96413; 96417; 99205; 99215; J1100; J1453; J1940; J2469; J7050; J9045; J9201; J9271; P9040; Q9967

== ENCOUNTER 2021-05-30 06:26 | Outpatient (RCR) | payer MEDICARE, SELFPAY ==
[2021-05-16 12:37] LABS: Basophils % 0.7 %; Eosinophils % 0.4 %; Hematocrit 27.6 % (42.0-52.0); Hemoglobin 9.2 g/dL (11.7-16.6); Lymphocytes # 0.9 10^3/uL (0.8-4.8); Lymphocytes % 30.6 %; Mean Corpuscular HGB Conc 33.3 g/dL (30.0-36.0); Mean Corpuscular Hemoglobin 30.3 pg (28.0-34.0); Mean Corpuscular Volume 90.8 fl (80-94); Mean Platelet Volume 9.5 fL (7.4-10.4); Monocytes # 0.6 10^3/uL (0.2-0.9); Monocytes % 20.8 %; Neutrophils # 1.32 10^3/uL (1.8-7.7); Neutrophils % 46.4 %; Nucleated Red Blood Cells % 1.1 %; Platelet Count 91 10^3/cmm (130-400); Red Blood Count 3.04 10^6/uL (4.1-5.3); Red Cell Distribution Width 18.7 % (12.1-15.1); White Blood Count 2.8 10^3/uL (4.0-10.0)
[2021-05-16 12:59] LABS: Alanine Aminotransferase 10 U/L (0-41); Albumin Level 3.6 g/dL (3.5-5.2); Alkaline Phosphatase 737 IU/L (40-130); Aspartate Amino Transferase 21 U/L (0-40); Blood Urea Nitrogen 16 mg/dL (8-23); Calcium 8.3 mg/dL (8.5-10.5); Carbon Dioxide 22 mmol/L (22-29); Chloride 107 mmol/L (98-107); Globulin 2.1 g/dL (1.3-4.6); Glucose 87 mg/dL (65-115); Osmolality Calculated 291 mOsm/kg (285-295); Sodium 140 mmol/L (136-145); Total Bilirubin 0.3 mg/dL (0.15-1.2); Total Protein 5.7 g/dL (6.6-8.7)
[2021-05-16 16:41] LABS: Iron 139 ug/dL (59-158); Percent Saturation 71.2 % (20-50); Total Iron Binding Capacity 195 mcg/dl; Unsaturated Iron Binding 56 ug/dL (112-347)
[2021-05-16 16:54] LABS: Ferritin 3067 ng/mL (30-400)
[2021-05-30 08:54] LABS: Basophils % 0.5 %; Eosinophils % 0.2 %; Hematocrit 26.6 % (42.0-52.0); Hemoglobin 8.7 g/dL (11.7-16.6); Lymphocytes # 0.8 10^3/uL (0.8-4.8); Lymphocytes % 19.7 %; Mean Corpuscular HGB Conc 32.7 g/dL (30.0-36.0); Mean Corpuscular Hemoglobin 31.1 pg (28.0-34.0); Mean Platelet Volume 10.2 fL (7.4-10.4); Monocytes # 0.7 10^3/uL (0.2-0.9); Monocytes % 16.8 %; Neutrophils # 2.56 10^3/uL (1.8-7.7); Neutrophils % 61.6 %; Nucleated Red Blood Cells % 0.7 %; Platelet Count 117 10^3/cmm (130-400); Red Cell Distribution Width 21.7 % (12.1-15.1); White Blood Count 4.2 10^3/uL (4.0-10.0)
[2021-05-30 09:30] LABS: Alanine Aminotransferase 13 U/L (0-41); Albumin Level 3.5 g/dL (3.5-5.2); Alkaline Phosphatase 720 IU/L (40-130); Anion Gap 17.9 (5-19); Aspartate Amino Transferase 29 U/L (0-40); Blood Urea Nitrogen 20 mg/dL (8-23); Calcium 8.1 mg/dL (8.5-10.5); Carbon Dioxide 19 mmol/L (22-29); Chloride 102 mmol/L (98-107); Globulin 2.6 g/dL (1.3-4.6); Glucose 93 mg/dL (65-115); Osmolality Calculated 282 mOsm/kg (285-295); Potassium 3.9 mmol/L (3.5-5.1); Sodium 135 mmol/L (136-145); Total Bilirubin 0.4 mg/dL (0.15-1.2); Total Protein 6.1 g/dL (6.6-8.7)
[2021-05-30 09:31] LABS: Thyroid Stimulating Hormone 2.22 uIU/mL (0.27-4.20)
[2021-05-30] MEDS: morphine 4 mg/mL SDV 1 mL IV (10:55)
[2021-05-30] MEDS: sodium chloride 0.9% 250 ML 125 ML IV (11:08)
--- NOTE | 2021-05-31 16:06 | ONC FU_ITS ---
Dr. Sifuentes Patient Follow-Up Note Patient: Howie Hoffman Unit #: [id number]: [id number] Dicatated By: Bert Sifuentes M.D.Date of Visit:May 30, 2021 Onc Med Follow-up/Prog Note Chief Complaint: Lymphoma/bladder cancer. History of Present Illness: This is an 86 year-old man with history of grade 3 follicular lymphoma, stage IIIB, high FLIPI score. In December 2020 he was found to have muscle invasive bladder cancer. In October of 2012 he developed occasional swelling of the right leg. An ultrasound of the leg showed no evidence of DVT, but he was noted to have large inguinal adenopathy measuring up to 3.5 cm. On 12/24/2012 excisional right inguinal lymph node biopsy showed grade 3 follicular lymphoma with immunohistochemistry positive for CD20, BCL-2, BCL-6, CD10 and negative for CD23 and ALK. Flow cytometry was negative for CD5. His Ki-67 was 30-50%. Bone marrow biopsy on 01/27/13 showed no involvement with lymphoma. Staging PET/CT on 01/29/13 showed diffuse adenopathy up to 2.5 cm with a maximum SUV of 9.2 involving bilateral axilla, mediastinum, abdomen, and inguinal stations. He had significant retroperitoneal adenopathy raising the aorta anteriorly. Hepatitis B serology was negative. MUGA scan on 01/28/2013 showed EF 62%. Pre-treatment LDH was 204 U/L. Definitive chemotherapy with 6 cycles of R- CHOP regimen was given 02/02/13- 05/18/13. His restaging PET/CT on 06/04/2013 after 6 cycles showed a complete response. Maintenance rituximab as per PRIMA study began on 07/15/13. CT chest, abdomen, and pelvis on 06/30/2014 was without significant adenopathy. He received cycle 12 of rituximab therapy on 03/28/2015, completing 2 years of maintenance treatment. He was then followed on observation/expectant management. His medical history is also significant for haveing undergone treatment for superficial bladder cancer in 2012. He underwent TURBT for recurrent superficial bladder cancer in March 2020. On his surveillance cystoscopy with Dr. Johnson on 12/08/2020 the right lateral bladder wall looked abnormal. The appearance was more consistent with an intramural type of involvement. Biopsy was recommended, and he was scheduled to have inpatient cystoscopy. In the meantime, he developed multiple complaints including abdominal pain and constipation along with anorexia/weight loss and fatigue. His CT scans of the chest, abdomen, and pelvis on 12/14/2020 showed interval development of bilateral hydroureteronephrosis with more significant enhancement and involvement of the left urological system. There is diffuse asymmetric bladder wall thickening which was greatest on the right and suspicious for bladder cancer. Subcentimeter lymph nodes and fat stranding at the level of the kidneys was noted to extend to around the aorta. There were new pulmonary nodules in the right middle lobe measuring 13 mm and in the lingula measuring 3 mm. The appearance favored postinflammatory changes, but follow-up was recommended. On 12/22/2020 he underwent cystoscopy with bilateral retrograde ureteropyelogram's, left ureteroscopy with dilatation of ureteral stricture, placement of ureteral stents bilaterally, and TURBT of a large bladder tumor involving the right lateral wall. Pathology showed poorly differentiated papillary urothelial carcinoma with infiltration of the muscularis propria and deep tissue. On 01/12/2021 he underwent repeat cystoscopy with bilateral ureteroscopy and bilateral ureteral stent exchange. I had then seen him for a follow-up visit on 01/26/2021. His laboratory studies at that time showed slight improvement in the renal function with BUN 24 and creatinine 1.8 mg/dL. The alkaline phosphatase was found to be significantly elevated at 504/130 IU/L. A subsequent bone scan, though, showed no evidence of metastatic disease. He was then seen by Dr. Jhony Santoyo at the [facility] on 02/07/2021, and he was recommended to proceed with neoadjuvant chemotherapy followed by cystectomy. Further staging with PET/CT on 02/10/2021 showed reactive appearing pelvic lymph nodes and postsurgical pelvic edema, reactive left neck and upper abdominal lymph nodes, and a small right pleural effusion. There was again no evidence of metastatic disease. He then underwent placement of Port-A-Cath venous access device in preparation for neoadjuvant dose dense MVAC chemotherapy. His baseline echocardiogram showed normal LV function with an estimated ejection fraction at 48%. He was seen for follow-up on 03/06/2021. By that time he had become significantly anemic, and his platelet count had declined to 62,000. There was decline in his renal function with creatinine 2.5 mg/dL. He was given IV hydration, and his chemotherapy was deferred. I attempted to arrange for admission to [facility] for bone marrow aspiration/biopsy. He was instead seen there for a second opinion evaluation on 03/20/2021. He was recommended to proceed with 1st-line chemotherapy with carboplatin/gemcitabine with potential for subsequent maintenance immunotherapy. Also mentioned was possible 1st line immunotherapy with PD-L1 positive disease. His tumor was found to be negative for PD-L1 expression by PD-L1 IHC 22C3 and by PD-L1 IHC 28-8 assays, but the tumor mutational burden was high at 15 mut/Mb. On 03/28/2021 he began cycle 1 of chemotherapy with carboplatin/gemcitabine. His baseline CBC showed hemoglobin 9.2 g, white blood cell count 3900 and platelet count 79,000. The manual differential showed 54% segs, 4% bands, 3% metamyelocytes, 29% lymphocytes, 4% monocytes, 1% basophils, and 1% atypical lymphs. Nucleated red cells were not reported. His creatinine then increased to 2.6 mg/dL. He tolerated the treatment without acute toxicity. His day 8 treatment, though, was held due to a decrease in his platelet count to 40,000 and 2 neutropenia, ANC 900. He was given a single dose of G-CSF. His neutrophil count then gradually recovered. His platelet count nadired at 25,000. He continued with cycle 2 of carboplatin/gemcitabine on 04/18/2021. His day 8 treatment was held due to neutropenia. At that point he was having significant worsening of pain in the rectal/perineal area and he was having associated bowel symptoms. His exam was suspicious for local tumor infiltration. His restaging CT scans on 04/24/2021 showed diffuse extensive circumferential thickening of the rectum with surrounding induration, consistent with proctitis or neoplasm. It was a new finding from previous studies. There was new mesenteric induration with slight nodularity suspicious for peritoneal carcinomatosis. There was moderate bilateral hydronephrosis. A prominent left inguinal lymph node measuring 11 mm had shown slight interval enlargement. Also noted was interval development of diffuse blastic bone metastases throughout the visualized bony structures. With those findings and with his next generation sequencing showing high mutational burden, he was recommended to transition to second line treatment with pembrolizumab. He also was seen by Dr. Aleman for consideration of palliative radiation, which he declined. INTERIM HISTORY: He began cycle 1 of pembrolizumab 200 mg by IV infusion on 05/09/2021. He tolerated it without acute toxicity. He is seen for a follow-up visit. His main complaint is that he has developed serious pain in the back of his neck and in his lower back. He has been managing it with an [id number] topical medication. He has very limited activity. ECOG score is 3. Appetite is poor. His weight is down a couple of pounds. He is not having fever or night sweats. He has had no mouth sores. He does not complain of cough. He says his breathing is okay. He has not been having chest pain. He occasionally has nausea. He has not been having acid reflux symptoms. He continues to have terrible problems with bowel function, including constipation and painful bowel movements. His urination is constant and he has bladder incontinence. He has not been aware of any hematuria. He does not complain of headache. He sometimes has dizziness. He has some numbness in his hands. Medications: Glucosamine 2 (500 mg) Tablet Oral daily, Multivitamins 1 Capsule Oral daily, Omeprazole 1 (20 mg) Capsule Delayed Release Oral daily, predniSONE 1 Tablet (of 10 mg) Oral daily Allergies: PCN Vital Signs: Performed on May 30, 2021 11:08 Height - 70.00 in Weight - 158.2 lbs (HIGH) BSA - 1.89 sq.m BMI - 22.70 Temperature - 96.5 F (LOW) Pulse - 60 /min Respiration - 16 /min BP - 137/63 mm(hg) O2 Sat - 96 % Pain - 8 Fatigue - 9 Physical Examination: Constitutional - He appears very weak generally, Eyes - Sclerae nonicteric. Conjunctivae clear, ENMT - No lesions noted in the oral cavity, Hematologic/Lymphatic - No cervical, clavicular, or axillary adenopathy, Respiratory - Lungs are clear with good air movement bilaterally, Cardiovascular - Heart rhythm is irregular. There is a II/ systolic murmur at the base. There is no gallop or rub noted, Abdomen - Mildly distended. There is tenderness in the lower abdomen. Liver and spleen are not enlarged. There is no abdominal mass or ascites noted and there is no inguinal adenopathy, Back/Spine - There is bony tenderness in the area of the lower thoracic/upper lumbar spine, Extremities - No edema, Neurologic - No focal neurologic deficits noted. Lab/Imaging: Test performed on May 09, 2021 08:25 Sodium 141 mmol/L TSH 5.24 uIU/mL Potassium 3.9 mmol/L Chloride 108 mmol/L CO2 22 mmol/L Anion Gap 14.9 BUN 18 mg/dL Creatinine 1.4 mg/dL Cr Clearance (Est) 39.06 mL/min Glucose 92 mg/dL Osmolality - Calculated 294 mOsm/kg Calcium 8.2 mg/dL Protein, Total 6.3 g/dL Albumin 3.8 g/dL Globulin 2.5 g/dL Bilirubin, Total 0.3 mg/dL ALT (SGPT) 11 U/L AST (SGOT) 22 U/L Alkaline Phosphatase 845 IU/L WBC 2.7 10 3/uL RBC 3.28 10 6/uL HGB 9.9 g/dL HCT 29.5 % MCV 89.9 fl MCH 30.2 pg MCHC 33.6 g/dL RDW 17.3 % Platelet Count 74 10 3/cmm MPV 10.0 fL Neutrophils 1.10 10 3/uL Lymphocytes 0.9 10 3/uL Monocytes 0.6 10 3/uL Eosinophils 0.0 10 3/uL Basophils 0.0 10 3/uL Neutrophil % 41.3 % Lymphocyte % 33.3 % Monocyte % 23.6 % Eosinophil % 0.7 % Basophils % 0.4 % NRBC % 0 % Problem List: 1. 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 2. History of superficial bladder cancer treated in March 2020 with TURBT followed by intravesical BCG. 3. History of grade 3 follicular lymphoma, stage IIIB. He had high FLIPI score at initial diagnosis in December 2012. He has been in remission following treatment with R-CHOP chemotherapy and maintenance rituximab for 2 years. 4. GERD. 5. History of tubular adenoma of the colon, status post endoscopic resection in 2006. He had negative surveillance colonoscopy on 02/01/2019. 6. 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 Problems Addressed with this Encounter and Plan: 1. Patient with history of superficial bladder cancer. His treatment included TURBT in March 2020 followed by intravesical BCG. 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 He had associated hydronephrosis for which underwent TURBT and placement of ureteral stents bilaterally on . As of his follow-up visit in January 2021 there had been a decline in his renal function and he was found to have a significantly elevated alkaline phosphatase. Bone scan and subsequent PET/CT, though, showed no evidence of metastatic disease. In the meantime, he was also seen by Dr. Jhony Santoyo at the [facility], and he was recommended to proceed with neoadjuvant chemotherapy followed by cystectomy. He was then seen with intent to begin dose dense MVAC chemotherapy. However, he had continued to show further decline in performance status, and there was further decline in his renal function as well as development of significant anemia and thrombocytopenia. On review of his blood smear, there were occasional nucleated red cells and occasional immature granulocytic forms with high probability of metastatic involvement in the bone marrow. He was then seen for a second opinion evaluation at [facility], and he was recommended to begin chemotherapy with carboplatin/gemcitabine with the potential to transition to maintenance immunotherapy. He returned to begin cycle 1 of carboplatin/gemcitabine on 03/28/2021. At that point he had very poor performance status and his prognosis also appeared to be very poor. He tolerated the initial chemotherapy infusions without acute toxicity. During follow-up his blood counts declined, as expected. His day 8 treatment was held. He then had gradual but uneventful recovery. He began cycle 2 of carboplatin/gemcitabine on 04/18/2021. His day 8 treatment was held due to neutropenia. At that point he complained of increased pain in the rectal area and he had also developed significant problems with his bowel function. His exam was suspicious for local infiltration by neoplasm and restaging CT of the abdomen/pelvis showed new extensive circumferential thickening of the rectum with surrounding induration consistent with proctitis or neoplasm. Also noted on that study was development of diffuse blastic bone metastases throughout the visualized bony structures. With those findings his chemotherapy was discontinued. He was seen by Dr. Aleman for palliative radiation, which he declined. With his next generation sequencing study showing high mutational burden, he was recommended to proceed to second line treatment with pembrolizumab. He began cycle 1 on 05/09/2021. Since then his performance status has continued to decline. He has new pain in the neck and lower back, which I assume is related to the bony metastatic disease. Thus far he has had no apparent toxicity with the pembrolizumab. As such, he will continue with the second cycle. The dosage will remain the same at 200 mg by IV infusion. He will be scheduled for further evaluation with MRI of the cervical, thoracic, and lumbar spine. Depending on the findings, we may want to consider palliative radiation. In the meantime, he will be given a prescription for immediate release morphine 15 mg to take 1 or 2 as needed. I will tentatively plan a follow-up visit in 3 weeks. 2. He also has grade 3 follicular lymphoma, stage IIIB. He had high FLIPI score at initial diagnosis in December 2012. He had complete response to treatment with 6 cycles of R-CHOP chemotherapy, delivered from 01/11/2013 - 05/18/2013. He was then given maintenance rituximab for 2 years, completed on 03/28/2015. Thus far there has been no documented recurrence/progression of the lymphoma. Signed By: Bert Sifuentes M.D. <<Signature on File>>
== END 2021-06-11 23:59 | disposition home or self-care (01) ==
LOC: ONCMED 06:26
PROVIDERS: Nurse Practitioner Family; PCP Internal Medicine; Visit Provider Internal Medicine Medical Oncology
DX: Z51.12 Encounter for antineoplastic immunotherapy (principal); C67.3 Malignant neoplasm of anterior wall of bladder; D11.9 Benign neoplasm of major salivary gland, unspecified; K21.9 Gastro-esophageal reflux disease without esophagitis; Z85.038 Personal history of other malignant neoplasm of large intestine; Z85.51 Personal history of malignant neoplasm of bladder; Z85.72 Personal history of non-Hodgkin lymphomas; Z92.21 Personal history of antineoplastic chemotherapy; Z79.899 Other long term (current) drug therapy
CPT/HCPCS: 36591; 80053; 82728; 83540; 83550; 84443; 85025; 96372; 96413; 99214; 99215; J2270; J7050; J9271

== ENCOUNTER 2021-06-18 12:50 | Outpatient (CLI) | payer MEDICARE, SELFPAY ==
--- NOTE | 2021-06-18 13:07 | MR_ITS ---
WS: [id number] MRI CERVICAL SPINE NONCONTRAST AND CONTRAST TECHNIQUE: Sagittal T1, T2 and STIR imaging. Axial T2, gradient, and fiesta imaging. Post gadolinium imaging was obtained. CLINICAL INFORMATION: BONE METS COMPARISON: PET/CT February 10, 2021 and bone scan February 02, 2021. CT abdomen pelvis April 24, 2021. FINDINGS: Straightening of the normal cervical lordosis. Cord signal is normal. No high-grade central canal milton rowing. Diffuse replacement of the normal fatty bone marrow signal throughout the visualized cervical and upper thoracic spine also involving the posterior elements compatible with diffuse confluent bon y metastasis. Patchy enhancement in the post gadolinium imaging. No acute compression fractures. No s ignificant epidural disease. C2-C3: Mild LEFT and no significant RIGHT foraminal narrowing. Spinal canal is patent. Mild facet art hropathy. C3-C4: Disc osteophyte complex with endplate ridging. Moderate LEFT and mild RIGHT bony foraminal milton rowing. Mild facet arthropathy. C4-C5: Disc osteophyte complex with endplate ridging. Mild bilateral bony foraminal narrowing. Modera te facet arthropathy. C5-C6: Disc osteophyte complex with endplate ridging. Mild to moderate bilateral bony foraminal narro wing. Moderate facet arthropathy. Spinal canal is patent. C6-C7: RIGHT pericentral shallow disc osteophyte protrusion. Mild central canal stenosis. Mild bilate ral bony foraminal narrowing. C7-T1: Osteophytic ridging. Mild bilateral bony foraminal narrowing. Spinal canal is patent. Enhancing T2 hyperintense lesion in the superficial tail of the RIGHT parotid gland measuring 2.5 x 1 .0 cm may represent parotid adenoma but technically indeterminate. This is stable since the prior PET /CT in 2012. Prominent bilateral LEFT greater than RIGHT level 4 cervical and supraclavicular lymph n odes are similar in appearance to the recent PET/CT. Visualized brain stem structures: Normal. Prevertebral soft tissues: Normal. MR/MR cervical spine wo/w [id number] IMPRESSION: 1. Diffuse replacement normal bone marrow signal throughout the visualized cer vical and upper thoracic spine including the posterior elements compatible with diffuse metastatic disease. Patchy enhancement on the post gadolinium images. No significant epidural disease. 2. Mild spondylitic change cervical spine with mild central canal stenosis C6- C7. 3. Multilevel mild to moderate bony foraminal narrowing described above. 4. T2 hyperintense ovoid lesion in the superficial RIGHT parotid gland measuri ng 1.0 x 2.5 CM. This demonstrates FDG activity on the prior PET/CT appears unc hanged since the PET/CT in 2012. Differential considerations include parotid ad enoma versus parotid neoplasm. 5. A few slight prominent supraclavicular and level 4 cervical lymph nodes unc hanged since the prior PET/CT.
== END 2021-06-18 12:51 | disposition home or self-care (01) ==
PROVIDERS: PCP Internal Medicine; Visit Provider Internal Medicine Medical Oncology
DX: C79.51 Secondary malignant neoplasm of bone (principal); K11.9 Disease of salivary gland, unspecified; M48.02 Spinal stenosis, cervical region
CPT/HCPCS: 72156

== ENCOUNTER 2021-06-19 12:26 | Outpatient (CLI) | payer MEDICARE, SELFPAY ==
--- NOTE | 2021-06-19 12:34 | MR_ITS ---
WS: [id number] MRI THORACIC SPINE WITH CONTRAST TECHNIQUE: Sagittal T1, T2 and STIR imaging. Axial T2 imaging. Post gadolinium imaging was obtained. CLINICAL INFORMATION: BONE METS/PAIN IN NECK BACK COMPARISON: PET/CT February 10, [address] abdomen pelvis April 24, 2021 FINDINGS: Mild thoracic kyphosis. Diffuse replacement normal bone marrow signal throughout the thoracic spine. Diffuse replacement of the normal fatty T1 bone marrow signal compatible with diffuse metastatic dise ase. Patchy enhancement post gadolinium images. No high-grade central canal stenosis. Cord signal is normal. No enhancing epidural disease. Diffuse partially visualized metastatic disease in the proxima l visualized ribs. Diffuse metastatic disease in the cervical spine seen on the electro mechanic imaging.Diffuse metastatic disease also involving the posterior elements Moderate RIGHT and small LEFT pleural effusions. Normal caliber thoracic aorta. Hypertrophic changes anterior thoracic spine. Moderate facet arthropathy lower thoracic spine. No significant disc extrusions or protrusions. Moder ate spondylitic changes. MR/MR thoracic spine wo/w [id number] IMPRESSION: 1. Diffuse replacement normal bone marrow signal throughout the visualized tho racic spine and posterior elements compatible with diffuse metastatic disease w ith associated patchy enhancement. Complete replacement of the normal T1 fatty bone marrow signal. 2. No significant epidural disease. No central canal stenosis. 3. Cord signal is normal. 4. Moderate hypertrophic changes thoracic spine with thoracic kyphosis. No acu te compression fractures. 5. Moderate RIGHT and small LEFT pleural effusions.
== END 2021-06-19 12:27 | disposition home or self-care (01) ==
LOC: RAD 12:30
PROVIDERS: PCP Internal Medicine; Visit Provider Internal Medicine Medical Oncology
DX: C79.51 Secondary malignant neoplasm of bone (principal); M54.2 Cervicalgia; M54.6 Pain in thoracic spine; J90 Pleural effusion, not elsewhere classified
CPT/HCPCS: 72157

== ENCOUNTER 2021-06-28 06:51 | Outpatient (RCR) | payer MEDICARE, SELFPAY ==
[2021-06-20] VITALS (10 sets, daily range): BP systolic 114–143; BP diastolic 59–85; PULSE 85–104; RESP 18; TEMP 36.2–37.2; O2SAT 94–100
[2021-06-20 09:19] LABS: Basophils % 0.4 %; Eosinophils % 0.2 %; Hematocrit 23.7 % (42.0-52.0); Hemoglobin 7.5 g/dL (11.7-16.6); Lymphocytes # 0.6 10^3/uL (0.8-4.8); Lymphocytes % 10.6 %; Mean Corpuscular HGB Conc 31.6 g/dL (30.0-36.0); Mean Corpuscular Hemoglobin 31.6 pg (28.0-34.0); Mean Platelet Volume 10.5 fL (7.4-10.4); Monocytes # 0.7 10^3/uL (0.2-0.9); Monocytes % 11.9 %; Neutrophils # 4.24 10^3/uL (1.8-7.7); Neutrophils % 76.4 %; Nucleated Red Blood Cells # 0.1 /100WBC; Nucleated Red Blood Cells % 1.1 %; Platelet Count 103 10^3/cmm (130-400); Red Blood Count 2.37 10^6/uL (4.1-5.3); Red Cell Distribution Width 23.8 % (12.1-15.1); White Blood Count 5.6 10^3/uL (4.0-10.0)
[2021-06-20 09:46] LABS: Alanine Aminotransferase 22 U/L (0-41); Albumin Level 3.3 g/dL (3.5-5.2); Alkaline Phosphatase 707 IU/L (40-130); Anion Gap 17.4 (5-19); Aspartate Amino Transferase 56 U/L (0-40); Blood Urea Nitrogen 32 mg/dL (8-23); Calcium 8.9 mg/dL (8.5-10.5); Carbon Dioxide 20 mmol/L (22-29); Chloride 99 mmol/L (98-107); Globulin 2.9 g/dL (1.3-4.6); Glucose 116 mg/dL (65-115); Osmolality Calculated 282 mOsm/kg (285-295); Potassium 4.4 mmol/L (3.5-5.1); Sodium 132 mmol/L (136-145); Total Bilirubin 0.5 mg/dL (0.15-1.2); Total Protein 6.2 g/dL (6.6-8.7)
[2021-06-20] MEDS: diphenhydrAMINE 25 mg Capsule PO (12:45)
[2021-06-20] MEDS: acetaminophen 325 mg Tablet 650 MG PO (12:45)
[2021-06-20] MEDS: ondansetron 2 mg/ML SDV 2 mL 8 MG IVP (12:48)
[2021-06-20] MEDS: sodium chloride 0.9% 250 ML 999 ML IV (12:50)
[2021-06-20] MEDS: FUROsemide 10 mg/mL SDV 2mL 20 MG IV (14:17)
[2021-06-28 13:11] LABS: Basophils % 0.1 %; Eosinophils % 0.1 %; Hematocrit 31.7 % (42.0-52.0); Hemoglobin 10.2 g/dL (11.7-16.6); Lymphocytes # 0.5 10^3/uL (0.8-4.8); Mean Corpuscular HGB Conc 32.2 g/dL (30.0-36.0); Mean Corpuscular Hemoglobin 31.4 pg (28.0-34.0); Mean Corpuscular Volume 97.5 fl (80-94); Mean Platelet Volume 9.4 fL (7.4-10.4); Monocytes # 0.6 10^3/uL (0.2-0.9); Neutrophils % 83.1 %; Nucleated Red Blood Cells % 0.6 %; Platelet Count 82 10^3/cmm (130-400); Red Blood Count 3.25 10^6/uL (4.1-5.3); Red Cell Distribution Width 22.2 % (12.1-15.1)
[2021-06-28 13:36] LABS: Alanine Aminotransferase 42 U/L (0-41); Albumin Level 3.4 g/dL (3.5-5.2); Alkaline Phosphatase 813 IU/L (40-130); Anion Gap 18.1 (5-19); Aspartate Amino Transferase 109 U/L (0-40); Blood Urea Nitrogen 45 mg/dL (8-23); Carbon Dioxide 22 mmol/L (22-29); Chloride 94 mmol/L (98-107); Globulin 3.2 g/dL (1.3-4.6); Glucose 133 mg/dL (65-115); Osmolality Calculated 283 mOsm/kg (285-295); Potassium 4.1 mmol/L (3.5-5.1); Sodium 130 mmol/L (136-145); Total Bilirubin 1.2 mg/dL (0.15-1.2); Total Protein 6.6 g/dL (6.6-8.7)
--- NOTE | 2021-06-28 17:23 | ONC FU_ITS ---
Dr. Sifuentes Patient Follow-Up Note Patient: Howie Hoffman Unit #: [id number]: [id number] Dicatated By: Bert Sifuentes M.D.Date of Visit:Jun 28, 2021 Onc Med Follow-up/Prog Note Chief Complaint: Lymphoma/bladder cancer. History of Present Illness: This is an 86 year-old man with metastatic bladder cancer. He has a history of grade 3 follicular lymphoma, presenting in 2012 with a right inguinal lymphadenopathy. Excisional right inguinal lymph node biopsy on 12/24/2012 showed grade 3 follicular lymphoma with immunohistochemistry positive for CD20, BCL-2, BCL-6, CD10 and negative for CD23 and ALK. Staging PET/CT on 01/29/13 showed diffuse adenopathy up to 2.5 cm with a maximum SUV of 9.2 involving bilateral axilla, mediastinum, abdomen, and inguinal stations. He had significant retroperitoneal adenopathy raising the aorta anteriorly. Definitive chemotherapy with 6 cycles of R- CHOP regimen was given 02/02/13- 05/18/13. His restaging PET/CT on 06/04/2013 after 6 cycles showed a complete response. He was given 2 years of maintenance rituximab, completed in March 2015. He was then followed on observation/expectant management. His medical history is also significant for having undergone treatment for superficial bladder cancer in 2012. He underwent TURBT for recurrent superficial bladder cancer in March 2020. On his surveillance cystoscopy with Dr. Johnson on 12/08/2020 the right lateral bladder wall looked abnormal. The appearance was more consistent with an intramural type of involvement. Biopsy was recommended, and he was scheduled to have inpatient cystoscopy. In the meantime, he had developed multiple complaints including abdominal pain and constipation along with anorexia/weight loss and fatigue. His CT scans of the chest, abdomen, and pelvis on 12/14/2020 showed interval development of bilateral hydroureteronephrosis with more significant enhancement and involvement of the left urological system. There was diffuse asymmetric bladder wall thickening which was greatest on the right and suspicious for bladder cancer. Subcentimeter lymph nodes and fat stranding at the level of the kidneys was noted to extend to around the aorta. There were new pulmonary nodules in the right middle lobe measuring 13 mm and in the lingula measuring 3 mm. The appearance favored postinflammatory changes, but follow-up was recommended. On 12/22/2020 he underwent cystoscopy with bilateral retrograde ureteropyelogram's, left ureteroscopy with dilatation of ureteral stricture, placement of ureteral stents bilaterally, and TURBT of a large bladder tumor involving the right lateral wall. Pathology showed poorly differentiated papillary urothelial carcinoma with infiltration of the muscularis propria and deep tissue. On 01/12/2021 he underwent repeat cystoscopy with bilateral ureteroscopy and bilateral ureteral stent exchange. I had then seen him for a follow-up visit on 01/26/2021. His laboratory studies at that time showed slight improvement in the renal function with BUN 24 and creatinine 1.8 mg/dL. The alkaline phosphatase was found to be significantly elevated at 504/130 IU/L. A subsequent bone scan, though, showed no evidence of metastatic disease. He was then seen by Dr. Jhony Santoyo at the [facility] on 02/07/2021, and he was recommended to proceed with neoadjuvant chemotherapy followed by cystectomy. Further staging with PET/CT on 02/10/2021 showed reactive appearing pelvic lymph nodes and postsurgical pelvic edema, reactive left neck and upper abdominal lymph nodes, and a small right pleural effusion. There was again no evidence of metastatic disease. He then underwent placement of Port-A-Cath venous access device in preparation for neoadjuvant dose dense MVAC chemotherapy. His baseline echocardiogram showed normal LV function with an estimated ejection fraction at 48%. He was seen for follow-up on 03/06/2021. By that time he had become significantly anemic, and his platelet count had declined to 62,000. There was decline in his renal function with creatinine 2.5 mg/dL. He was given IV hydration, and his chemotherapy was deferred. I attempted to arrange for admission to [facility] for bone marrow aspiration/biopsy. He was instead seen there for a second opinion evaluation on 03/20/2021. He was recommended to proceed with 1st-line chemotherapy with carboplatin/gemcitabine with potential for subsequent maintenance immunotherapy. Also mentioned was possible 1st line immunotherapy with PD-L1 positive disease. His tumor was found to be negative for PD-L1 expression by PD-L1 IHC 22C3 and by PD-L1 IHC 28-8 assays, but the tumor mutational burden was high at 15 mut/Mb. On 03/28/2021 he began cycle 1 of chemotherapy with carboplatin/gemcitabine. His baseline CBC showed hemoglobin 9.2 g, white blood cell count 3900 and platelet count 79,000. The manual differential showed 54% segs, 4% bands, 3% metamyelocytes, 29% lymphocytes, 4% monocytes, 1% basophils, and 1% atypical lymphs. Nucleated red cells were not reported. His creatinine then increased to 2.6 mg/dL. He tolerated the treatment without acute toxicity. His day 8 treatment, though, was held due to a decrease in his platelet count to 40,000 and 2 neutropenia, ANC 900. He was given a single dose of G-CSF. His neutrophil count then gradually recovered. His platelet count nadired at 25,000. He continued with cycle 2 of carboplatin/gemcitabine on 04/18/2021. His day 8 treatment was held due to neutropenia. At that point he was having significant worsening of pain in the rectal/perineal area and he was having associated bowel symptoms. His exam was suspicious for local tumor infiltration. His restaging CT scans on 04/24/2021 showed diffuse extensive circumferential thickening of the rectum with surrounding induration, consistent with proctitis or neoplasm. It was a new finding from previous studies. There was new mesenteric induration with slight nodularity suspicious for peritoneal carcinomatosis. There was moderate bilateral hydronephrosis. A prominent left inguinal lymph node measuring 11 mm had shown slight interval enlargement. Also noted was interval development of diffuse blastic bone metastases throughout the visualized bony structures. With those findings and with his next generation sequencing showing high mutational burden, he was recommended to transition to second line treatment with pembrolizumab. He also was seen by Dr. Aleman for consideration of palliative radiation, which he declined. INTERIM HISTORY: He began cycle 1 of pembrolizumab 200 mg by IV infusion on 05/09/2021. He tolerated it without acute toxicity. He then continued with cycle 2 on 05/30/2021 and with cycle 3 on 06/20/2021. At that point he continued to have very marginal performance status. His hemoglobin had dropped to 7.5 g, and he was transfused 2 units PRBC. He is seen for an unplanned visit. He complains that he is very weak, to the point that he is no longer ambulatory, and he requires assistance with all of his care. His ECOG score is 4. He has ongoing complaints of nausea, and he no appetite despite taking dronabinol. He does not have fever or night sweats. He says his vision has been playing tricks on him. He has some soreness in his mouth and throat, and he is having difficulty swallowing pills. He does not complain of cough, but it has been more difficult for him to breathe. He has not been having chest pain. He has ongoing problems with constipation, and he also has difficulty voiding. He is having significant pain in the rectal area and in the hip area on both sides. He also has pain in his neck at the base of his spine. He has numbness in his hands. Medications: Glucosamine 2 (500 mg) Tablet Oral daily, Multivitamins 1 Capsule Oral daily, Omeprazole 1 (20 mg) Capsule Delayed Release Oral daily, predniSONE 1 Tablet (of 10 mg) Oral daily Allergies: PCN Vital Signs: Performed on Jun 28, 2021 13:00 Height - 70.00 in Temperature - 98.3 F (LOW) Respiration - 16 /min BP - 136/85 mm(hg) O2 Sat - % Pain - 0 Fatigue - 10 Physical Examination: Constitutional - He appears very weak generally, Eyes - Sclerae nonicteric. Conjunctivae clear, ENMT - There is mild oral candidiasis, Hematologic/Lymphatic - No cervical, clavicular, or axillary adenopathy, Respiratory - Lungs sound clear, Cardiovascular - Heart rhythm is irregular. There is a II/ systolic murmur at the base. There is no gallop or rub noted, Abdomen - Mildly distended and tympanic. There is tenderness in the lower abdomen. Liver and spleen are not enlarged. There is no abdominal mass or ascites noted and there is no inguinal adenopathy, Extremities - There is 2+ lower extremity edema, Neurologic - No focal neurologic deficits noted. Lab/Imaging: Test performed on Jun 28, 2021 12:55 Sodium 130 mmol/L Potassium 4.1 mmol/L Chloride 94 mmol/L CO2 22 mmol/L Anion Gap 18.1 BUN 45 mg/dL Creatinine 1.4 mg/dL Cr Clearance (Est) 39.1500 mL/min Glucose 133 mg/dL Osmolality - Calculated 283 mOsm/kg Calcium 6.0 mg/dL Protein, Total 6.6 g/dL Albumin 3.4 g/dL Globulin 3.2 g/dL Bilirubin, Total 1.2 mg/dL ALT (SGPT) 42 U/L AST (SGOT) 109 U/L Alkaline Phosphatase 813 IU/L WBC 7.0 10 3/uL RBC 3.25 10 6/uL HGB 10.2 g/dL HCT 31.7 % MCV 97.5 fl MCH 31.4 pg MCHC 32.2 g/dL RDW 22.2 % Platelet Count 82 10 3/cmm MPV 9.4 fL Neutrophils 5.80 10 3/uL Lymphocytes 0.5 10 3/uL Monocytes 0.6 10 3/uL Eosinophils 0.0 10 3/uL Basophils 0.0 10 3/uL Neutrophil % 83.1 % Lymphocyte % 7.0 % Monocyte % 9.0 % Eosinophil % 0.1 % Basophils % 0.1 % NRBC % 0.6 % Problem List: 1. 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 2. History of superficial bladder cancer treated in March 2020 with TURBT followed by intravesical BCG. 3. History of grade 3 follicular lymphoma, stage IIIB. He had high FLIPI score at initial diagnosis in December 2012. He has been in remission following treatment with R-CHOP chemotherapy and maintenance rituximab for 2 years. 4. GERD. 5. History of tubular adenoma of the colon, status post endoscopic resection in 2005. He had negative surveillance colonoscopy on 02/01/2019. 6. 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 Problems Addressed with this Encounter and Plan: 1. Patient with history of superficial bladder cancer. His treatment included TURBT in March 2020 followed by intravesical BCG. 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 He had associated hydronephrosis for which underwent TURBT and placement of ureteral stents bilaterally on . As of his follow-up visit in January 2021 there had been a decline in his renal function and he was found to have a significantly elevated alkaline phosphatase. Bone scan and subsequent PET/CT, though, showed no evidence of metastatic disease. In the meantime, he was also seen by Dr. Jhony Santoyo at the [facility], and he was recommended to proceed with neoadjuvant chemotherapy followed by cystectomy. He was then seen with intent to begin dose dense MVAC chemotherapy. However, he had continued to show further decline in performance status, and there was further decline in his renal function as well as development of significant anemia and thrombocytopenia. On review of his blood smear, there were occasional nucleated red cells and occasional immature granulocytic forms with high probability of metastatic involvement in the bone marrow. He was then seen for a second opinion evaluation at [facility], and he was recommended to begin chemotherapy with carboplatin/gemcitabine with the potential to transition to maintenance immunotherapy. He returned to begin cycle 1 of carboplatin/gemcitabine on 03/28/2021. At that point he had very poor performance status and his prognosis also appeared to be very poor. He tolerated the initial chemotherapy infusions without acute toxicity. During follow-up his blood counts declined, as expected. His day 8 treatment was held. He then had gradual but uneventful recovery. He began cycle 2 of carboplatin/gemcitabine on 04/18/2021. His day 8 treatment was held due to neutropenia. At that point he complained of increased pain in the rectal area and he had also developed significant problems with his bowel function. His exam was suspicious for local infiltration by neoplasm and restaging CT of the abdomen/pelvis showed new extensive circumferential thickening of the rectum with surrounding induration consistent with proctitis or neoplasm. Also noted on that study was development of diffuse blastic bone metastases throughout the visualized bony structures. With those findings his chemotherapy was discontinued. He was seen by Dr. Aleman for palliative radiation, which he declined. With his next generation sequencing study showing high mutational burden, he was recommended to proceed to second line treatment with pembrolizumab. He began cycle 1 on 05/09/2021. He tolerated it without acute toxicity, and he then continued with cycle 2 on 05/30/2021 and was cycle 3 on 06/20/2021. During treatment there has been continued decline in his performance status, and his overall symptom burden has continued to worsen, including weakness/fatigue, nausea/anorexia, constipation and difficulty voiding, bone pain, and pain in the pelvic area. It is very clear at this point that he is not benefiting with treatment, and given the continued decline in his performance status, I think it is best now for him to transition to symptomatic/supportive care. He is agreeable to hospice referral, and I will begin those arrangements today. He is going to require a hospital bed. I will have him stop the dronabinol, and I will have him try Zyprexa Zydis 5 mg twice daily for the nausea/anorexia. Due to his difficulty swallowing, his other medications will need to be in liquid form, and those initially will include morphine liquid concentrate 20 mg/mL to take as needed, famotidine 20 mg twice daily, and Ativan Intensol to take as needed. His prognosis is very poor. I will just plan to see him again as needed. 2. He also has grade 3 follicular lymphoma, stage IIIB. He had high FLIPI score at initial diagnosis in December 2012. He had complete response to treatment with 6 cycles of R-CHOP chemotherapy, delivered from 01/11/2013 - 05/18/2013. He was then given maintenance rituximab for 2 years, completed on 03/28/2015. Thus far there has been no documented recurrence/progression of the lymphoma. Signed By: Bert Sifuentes M.D. <<Signature on File>>
== END 2021-07-09 23:59 | disposition home or self-care (01) ==
LOC: ONCMED 06:51
PROVIDERS: Nurse Practitioner Family; PCP Internal Medicine; Visit Provider Internal Medicine Medical Oncology
DX: Z51.12 Encounter for antineoplastic immunotherapy (principal); C67.3 Malignant neoplasm of anterior wall of bladder; K21.9 Gastro-esophageal reflux disease without esophagitis; D11.9 Benign neoplasm of major salivary gland, unspecified; Z85.51 Personal history of malignant neoplasm of bladder; Z85.72 Personal history of non-Hodgkin lymphomas; Z85.038 Personal history of other malignant neoplasm of large intestine; Z79.899 Other long term (current) drug therapy; Z92.21 Personal history of antineoplastic chemotherapy
CPT/HCPCS: 36430; 36591; 80053; 85025; 86850; 86900; 86920; 96372; 96375; 96413; 99214; 99215; J1940; J2405; J7050; J9271; P9016